=== PATIENT | male | born 1940 | race Caucasian/White ===

== ENCOUNTER → 2018-04-30 09:22 | Outpatient (CLI) | payer MEDICARE, BC, SELFPAY ==
[2018-04-30 10:04] LABS: Alanine Aminotransferase 34 IU/L (21-72); Albumin 4.2 g/dL (3.5-5.0); Albumin Globulin Ratio 1.4 (1.0-2.8); Alkaline Phosphatase 69 U/L (38-126); Aspartate Aminotransferase 32 IU/L (17-59); BUN Creatinine Ratio 23.8 (6-22); Bilirubin Total 0.7 mg/dL (0.2-1.3); Blood Urea Nitrogen 19 mg/dL (9-20); Carbon Dioxide 31 mmol/L (22-32); Chloride 103 mmol/L (98-107); Cholesterol 127 mg/dL (140-199); Estimated Glomerular Filt Rate > 60.0 mL/min (>60); Globulin 2.9 g/dL (1.7-4.1); Glucose 100 mg/dL (80-110); HDL Cholesterol 39 mg/dL (40-60); HEMOLYSIS < 15 (0-50); LDL Cholesterol Calculated 71 mg/dL (<100); Potassium 4.2 mmol/L (3.4-5.1); Sodium 141 mmol/L (137-145); Total Protein 7.1 g/dL (6.3-8.2); Triglycerides 87 mg/dL (35-150)
[2018-04-30 10:55] LABS: Thyroid Stimulating Hormone 2.72 uIU/mL (0.47-4.68)
== END ==
PROVIDERS: Family Provider Family Medicine; PCP Family Medicine; Visit Provider Family Medicine
DX: E78.5 Hyperlipidemia, unspecified (principal); N40.0 Benign prostatic hyperplasia without lower urinary tract symptoms; Z51.81 Encounter for therapeutic drug level monitoring
CPT/HCPCS: 36415; 80053; 80061; 84153; 84443

== ENCOUNTER → 2018-09-17 14:47 | Outpatient (CLI) | payer MEDICARE, BC, SELFPAY ==
[2018-09-17 15:03] LABS: Bacteria Urine None Seen
[2018-09-17 15:28] LABS: Appearance Urine UA CLEAR; Bilirubin Urine UA NEGATIVE (NEGATIVE); Color Urine UA YELLOW; Glucose Urine UA NEGATIVE (Normal); Ketones Urine UA NEGATIVE (NEGATIVE); Leukocyte Esterase Urine UA NEGATIVE (NEGATIVE); Nitrite Urine UA NEGATIVE (Negative); Occult Blood Urine UA 3+ (Negative); Protein Urine UA NEGATIVE (Negative); Specific Gravity Urine UA 1.015 (1.000-1.035); Urobilinogen Urine UA 0.2 E.U./dL (0.2); pH Urine UA 7.5 (4.5-8.0)
[2018-09-17 15:39] LABS: Amorphous Sediment Urine 1+; Culture Indicated Urine Cult Not Indicated; RBC Urine 10-30/HPF (0-5/HPF); Squamous Epithelial Cell Urine 0-1 /HPF; WBC Urine 1-5/HPF (0-5/HPF)
== END ==
PROVIDERS: Family Provider Family Medicine; PCP Family Medicine; Visit Provider Specialist
DX: N39.0 Urinary tract infection, site not specified (principal)
CPT/HCPCS: 81001

== ENCOUNTER → 2018-09-23 09:44 | Outpatient (CLI) | payer MEDICARE, BC, SELFPAY ==
--- NOTE | 2018-09-23 | DI.RAD.S_ITS ---
PROCEDURE: XR KUB INDICATIONS: CALCULUS OF KIDNEY TECHNIQUE: One view of the abdomen acquired. COMPARISON: [facility], , KUB XRAY (1 VIEW ABDOMEN), 08/07/2017, 13:52. FINDINGS: Surgical changes and devices: Median sternotomy wires are seen. Surgical clips are noted in left upper quadrant abdomen. A vascular stent is noted in right lower quadrant abdomen unchanged from prior study. Bowel: Bowel gas pattern is normal. Fecal stasis throughout the colon is seen. Soft tissues: No suspicious abdominal calcifications. Visualized solid organ contours appear normal in size. Bones: No suspicious bony lesions. IMPRESSION: No gross renal calcification or pelvic calcifications seen. Constipation. Dictated by: Beny Skaggs M.D. on 09/23/2018 at 11:40 Approved by: Beny Skaggs M.D. on 09/23/2018 at 11:41
[2018-09-23 09:59] LABS: Bacteria Urine None Seen; RBC Urine None Seen (0-5/HPF); WBC Urine None Seen (0-5/HPF)
[2018-09-23 10:12] LABS: Hematocrit 47.8 % (41-53); Hemoglobin 15.9 g/dL (13.5-17.5); Mean Corpuscular HGB Conc 33.3 % (30-36); Mean Corpuscular Hemoglobin 31.1 PG (26-34); Mean Corpuscular Volume 93.2 fL (80-100); Platelet Count 149 X10^3/uL (150-400); Red Blood Cell Count 5.12 X10^6/uL (4.5-5.9); Red Cell Distribution Width 13.5 % (11.6-14.8)
[2018-09-23 10:55] LABS: Appearance Urine UA CLEAR; Bilirubin Urine UA NEGATIVE (NEGATIVE); Color Urine UA YELLOW; Glucose Urine UA NEGATIVE (Normal); Ketones Urine UA NEGATIVE (NEGATIVE); Leukocyte Esterase Urine UA NEGATIVE (NEGATIVE); Nitrite Urine UA NEGATIVE (Negative); Occult Blood Urine UA NEGATIVE (Negative); Protein Urine UA NEGATIVE (Negative); Specific Gravity Urine UA <=1.005 (1.000-1.035); Urobilinogen Urine UA 0.2 E.U./dL (0.2)
[2018-09-23 11:05] LABS: Culture Indicated Urine Cult Not Indicated; Urine Comments Microscopic Normal
[2018-09-23 11:46] LABS: Alanine Aminotransferase 36 IU/L (21-72); Albumin 4.4 g/dL (3.5-5.0); Albumin Globulin Ratio 1.5 (1.0-2.8); Alkaline Phosphatase 74 U/L (38-126); Aspartate Aminotransferase 33 IU/L (17-59); Bilirubin Total 0.6 mg/dL (0.2-1.3); Blood Urea Nitrogen 18 mg/dL (9-20); Carbon Dioxide 30 mmol/L (22-32); Chloride 103 mmol/L (98-107); Cholesterol 137 mg/dL (140-199); Estimated Glomerular Filt Rate > 60.0 mL/min (>60); Glucose 95 mg/dL (80-110); HDL Cholesterol 44 mg/dL (40-60); HEMOLYSIS < 15 (0-50); LDL Cholesterol Calculated 73 mg/dL (<100); Potassium 4.2 mmol/L (3.4-5.1); Sodium 144 mmol/L (137-145); Total Protein 7.4 g/dL (6.3-8.2); Triglycerides 100 mg/dL (35-150)
== END ==
PROVIDERS: Family Provider Family Medicine; PCP Family Medicine; Visit Provider Specialist
DX: N20.0 Calculus of kidney (principal); R10.9 Unspecified abdominal pain; R31.9 Hematuria, unspecified; N39.0 Urinary tract infection, site not specified; E78.00 Pure hypercholesterolemia, unspecified; E78.5 Hyperlipidemia, unspecified; N40.0 Benign prostatic hyperplasia without lower urinary tract symptoms; Z12.5 Encounter for screening for malignant neoplasm of prostate; Z51.81 Encounter for therapeutic drug level monitoring
CPT/HCPCS: 36415; 74018; 80053; 80061; 81001; 84153; 84443; 85027

== ENCOUNTER → 2018-10-31 10:13 | Outpatient (CLI) | payer MEDICARE, BC, SELFPAY ==
--- NOTE | 2018-10-31 | DI.US.S_ITS ---
PROCEDURE: US CAROTID DOPPLER BI INDICATIONS: PAD TECHNIQUE: Color and pulse Doppler interrogation was performed of both carotid systems, with image documentation and velocity measurements. COMPARISON: None. FINDINGS: Stenosis calculations are based on SRU (Society of Radiologists in Ultrasound) criteria. Right side: Brachial blood pressure: 115/64 mm Hg. Common carotid artery peak systolic velocity: 103 cm/sec. Internal carotid artery peak systolic velocity: 79 cm/sec. Internal carotid artery end diastolic velocity: 26 cm/sec. External carotid artery peak systolic velocity: 143 cm/sec. ICA/CCA peak systolic ratio: 0.8. Garcia scale imaging description: Mild soft and calcific plaque Percent internal carotid artery stenosis: Less than 50% stenosis, no exchange clerk time.. Vertebral artery: Flow direction is antegrade. Left side: Brachial blood pressure: 111/65 mm Hg. Common carotid artery peak systolic velocity: 105 cm/sec. Internal carotid artery peak systolic velocity: 106 cm/sec. Internal carotid artery end diastolic velocity: 28 cm/sec. External carotid artery peak systolic velocity: 96 cm/sec. ICA/CCA peak systolic ratio: 1.0. Garcia scale imaging description: Mild calcific and soft plaque Percent internal carotid artery stenosis: Less than 50% stenosis. Vertebral artery: Flow direction is antegrade. IMPRESSION: Less than 50% stenosis at the proximal internal carotid arteries bilaterally. Vertebral arterial flow is antegrade in direction. No appreciable exchange clerk time. Dictated by: Nicholas Plummer M.D. on 10/31/2018 at 12:02 Approved by: Nicholas Plummer M.D. on 10/31/2018 at 12:04
--- NOTE | 2018-10-31 | DI.US.S_ITS ---
PROCEDURE: US RETROPERITONEAL COMP INDICATIONS: PAD TECHNIQUE: Real-time scanning was performed of the retroperitoneal organs, with image documentation. COMPARISON: [facility], , ABD AORTA ANEURYSM SCREENING, 07/11/2016, 10:31. [facility], US ARTERIAL DUPLEX LE BI, 10/31/2018, 10:58. FINDINGS: Aorta: Proximal aorta measures 1.9 cm, mid aorta 1.8 cm, and 2.4 cm distally. Iliac arteries: Proximal common iliac arteries are normal in caliber at 2.5 cm or less. Limited Doppler assessment demonstrates increased flow within the right common iliac artery with peak systolic velocity of 359 cm/s. Mild increase in flow within the left common iliac artery with peak systolic velocity of 202 cm/s. Miscellaneous: No free abdominal fluid. IMPRESSION: No abdominal aortic or proximal common iliac artery aneurysm. 50-99% stenosis of the right common iliac artery and less than 50% stenosis involving the left common iliac artery. Dictated by: Jarrod CHAPIN Interpreted: Orion Green MD on 11/01/2018 at 13:17 Approved by: Orion Green M.D. on 11/01/2018 at 17:15
--- NOTE | 2018-10-31 | DI.US.S_ITS ---
PROCEDURE: US ARTERIAL DUPLEX LE BI INDICATIONS: PAD TECHNIQUE: Color and pulse Doppler interrogation was performed of both lower extremity arterial systems, with image documentation. COMPARISON: None. FINDINGS: Right lower extremity: Common femoral artery: 79 cm/sec, with triphasic flow. Deep femoral artery: 93 cm/sec, with biphasic flow. Proximal superficial femoral artery: 62 cm/sec, with triphasic flow. Mid superficial femoral artery: 95 cm/sec, with biphasic flow. Distal superficial femoral artery: 67 cm/sec, with biphasic flow. Popliteal artery: 35 cm/sec, with biphasic flow. Posterior tibial artery: 94 cm/sec, with biphasic flow. Anterior tibial artery/dorsalis pedis: 70 cm/sec, with biphasic flow. Garcia-scale imaging description: Scattered minimal soft plaque Left lower extremity: Common femoral artery: 116 cm/sec, with biphasic flow. Deep femoral artery: 44 cm/sec, with biphasic flow. Proximal superficial femoral artery: 64 cm/sec, with biphasic flow. Mid superficial femoral artery: 104 cm/sec, with triphasic flow. Distal superficial femoral artery: 68 cm/sec, with biphasic flow. Popliteal artery: 51 cm/sec, with triphasic flow. Posterior tibial artery: 62 cm/sec, with biphasic flow. Anterior tibial artery/dorsalis pedis: 28 cm/sec, with a biphasic flow. Garcia-scale imaging description: A small degree of soft plaque is present. IMPRESSION: No significant stenosis found over the lower extremity arterial vasculature. Mild scattered soft plaque, no area of arterial stenosis. No suspicion for iliac artery stent stenosis. Dictated by: Nicholas Plummer M.D. on 10/31/2018 at 16:26 Approved by: Nicholas Plummer M.D. on 10/31/2018 at 16:29
== END ==
PROVIDERS: PCP Family Medicine; Visit Provider Internal Medicine Cardiovascular Disease
DX: I70.203 Unspecified atherosclerosis of native arteries of extremities, bilateral legs (principal); I65.23 Occlusion and stenosis of bilateral carotid arteries
CPT/HCPCS: 76770; 93880; 93925; 93976

== ENCOUNTER → 2019-01-16 14:27 | Outpatient (CLI) | payer MEDICARE, BC, SELFPAY ==
--- NOTE | 2019-01-16 14:29 | DI.RAD.S_ITS ---
PROCEDURE: XR CERVICAL SPINE 2V OR 3V INDICATIONS: neck pain, back pain TECHNIQUE: 3 view(s) of the cervical spine were acquired. COMPARISON: None. FINDINGS: Bones: No fractures or dislocations to the T1 level. Degenerative disc disease throughout cervical spine is seen. The lateral masses of C1 appear intact on the odontoid view. No suspicious bony lesions. Soft tissues: No prevertebral soft tissue swelling. IMPRESSION: Degenerative disc disease throughout cervical spine. No acute compression fracture or traumatic spondylolisthesis. Dictated by: Beny Skaggs M.D. on 01/16/2019 at 15:22 Approved by: Beny Skaggs M.D. on 01/16/2019 at 15:22
--- NOTE | 2019-01-16 14:29 | DI.RAD.S_ITS ---
PROCEDURE: XR THORACIC SPINE 3V INDICATIONS: neck pain, back pain TECHNIQUE: 3 views of the thoracic spine were acquired. COMPARISON: [facility], , T AND L SPINE 2 TO 3 VIEWS, 05/01/2016, 13:50. FINDINGS: Bones: Moderate kyphosis is seen centered at T11-12 level. Chronic appearing mild anterior wedge compression deformity at T12 and L1 levels are noted without to 15% loss of anterior vertebral body height. This is not significantly changed from previous study in 2016. Age indeterminate and anterior wedge compression deformity at T5 and T6 levels also seen with 15-20% loss of T6 vertebral body height anteriorly. Degenerative endplate changes throughout thoracic spine is seen. No suspicious bony lesions. 12 pairs of ribs are noted, and appear intact where visualized. Soft tissues: No paravertebral stripe thickening. IMPRESSION: 1. Age indeterminate anterior wedge compression deformity at T5 and T6 levels as above. Chronic appearing anterior wedge compression deformity at T12 and L1 levels. 2. Degenerative disc disease throughout thoracic and lumbar spine. No spondylolisthesis. Dictated by: Beny Skaggs M.D. on 01/16/2019 at 15:19 Approved by: Beny Skaggs M.D. on 01/16/2019 at 15:21
== END ==
PROVIDERS: PCP Family Medicine; Visit Provider Family Medicine
DX: M54.2 Cervicalgia (principal); M54.9 Dorsalgia, unspecified; M51.34 Other intervertebral disc degeneration, thoracic region; M51.36 Other intervertebral disc degeneration, lumbar region
CPT/HCPCS: 72040; 72072

== ENCOUNTER → 2019-01-20 15:21 | Outpatient (CLI) | payer MEDICARE, BC, SELFPAY ==
[2019-01-20 17:33] LABS: Alanine Aminotransferase 37 IU/L (21-72); Albumin 4.3 g/dL (3.5-5.0); Albumin Globulin Ratio 1.6 (1.0-2.8); Alkaline Phosphatase 79 U/L (38-126); Aspartate Aminotransferase 30 IU/L (17-59); BUN Creatinine Ratio 23.3 (6-22); Bilirubin Total 0.3 mg/dL (0.2-1.3); Blood Urea Nitrogen 21 mg/dL (9-20); Calcium 9.4 mg/dL (8.4-10.2); Carbon Dioxide 31 mmol/L (22-32); Chloride 101 mmol/L (98-107); Estimated Glomerular Filt Rate > 60.0 mL/min (>60); Globulin 2.7 g/dL (1.7-4.1); Glucose 68 mg/dL (80-110); HEMOLYSIS < 15 (0-50); Potassium 5.1 mmol/L (3.4-5.1); Sodium 140 mmol/L (137-145)
== END ==
PROVIDERS: PCP Family Medicine; Visit Provider Family Medicine
DX: R79.89 Other specified abnormal findings of blood chemistry (principal); E78.5 Hyperlipidemia, unspecified; Z51.81 Encounter for therapeutic drug level monitoring
CPT/HCPCS: 36415; 80053; 84403

== ENCOUNTER 2019-04-01 12:00 | Outpatient (RCR) | payer MEDICARE, BC, SELFPAY ==
--- NOTE | 2019-03-05 14:58 | PT.OIE ---
Current Diagnoses Cervicalgia (03/04/19) Dorsalgia, unspecified (03/04/19) Past Medical History (Last Reviewed 04/29/18 @ 11:57 by Estefania Fox DO) BPH (benign prostatic hyperplasia) (Chronic Unknown) Erectile dysfunction (Chronic Unknown) Factor V Leiden mutation (Chronic Unknown) GERD (gastroesophageal reflux disease) (Chronic Unknown) Hyperlipemia (Chronic Unknown) Hypogonadism (Chronic Unknown) Osteoporosis (Chronic Unknown) Coronary artery disease (Resolved Unknown) Skin cancer (Resolved Unknown) Past Surgical History (Last Reviewed 04/29/18 @ 11:57 by Estefania Fox DO) History of kidney stones (Resolved 1974) Hx of coronary artery bypass graft (Resolved Unknown) Hx of transurethral resection of prostate (Resolved ~1966) Provider Visit Care Team Role Provider Type Estefania Fox DO Attending Provider Physician Primary Care Provider Specialty: Family Practice Address: [address] [place] [address], [facility] Email: [email or web address] Physical Therapy Initial Evaluation PT-OP-A Visit Information Start: 03/04/19 10:26 Freq: Status: Active Protocol: Document 03/04/19 10:27 [facility] (Rec: 03/04/19 10:45 [facility] [id number]) Out-Patient Physical Therapy Visit Information Visit Information Visit Type Initial Evaluation Visit Start Time 10:30 Visit Stop Time 11:15 Total Visit Minutes 45 Visit Number 1 Evaluation Information Evaluation Date 03/04/19 PT-OP-B Current Condition Start: 03/04/19 10:26 Freq: Status: Active Protocol: Document 03/04/19 10:27 [facility] (Rec: 03/04/19 10:45 [facility] [id number]) Current Condition History of Current Condition History of Current Condition Pr referred from his physician as Thoracic spine xray shows a wedge compression fracture at T5-6 and T 12-L1 Hx of osteoporosis, 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 He took fosamax for years but is irene it now, DDD of the cervical spine. He reports he has lost 3 inches on his height over the years. Neck symptoms began in October. He has been dealing with tingling into his feet since 2011. Symptoms are worse when he goes to bed Chief complaint is when he is turinging his head to the right to back out a car Treatment Goals Patient/Caregiver Goals William would like guidance on exercises to help improve cervical rotation to the right especially with driving as well as find the root cause of what is causing his foot parathesias Current Functional Impairments (Reported) Functional Limitations- ADL's limitations with cervical spine ROM including looking over his shoulder with driving PT-OP-F Manual Assessment Start: 03/04/19 10:26 Freq: Status: Active Protocol: Document 03/04/19 10:27 [facility] (Rec: 03/05/19 14:58 [facility] [id number]) Manual Assessments Soft Tissue Assessment Soft Tissue Mobility Assessment tightness of the pectoralis musculature right greater than left, R>Left upper trapezius muscle tightness, tightness in the suboccipital musculature B Joint Mobility Assessment Joint Mobility Assessment T spine thoracic kyphosis with wedge compression fractures at T5-6 and T12-L1 no pain going into thoracic extension PA mobs T1-4 help to decrease pain with cervical rotation right PT-OP-J Posture/Palpation/Skin Start: 03/04/19 10:26 Freq: Status: Active Protocol: Document 03/04/19 10:27 [facility] (Rec: 03/05/19 14:58 [facility] [id number]) Posture Evaluation Position Standing Head/C-Spine Posture Excess Extension Shoulder Posture (R) Elevated Scapula Posture (L) Protracted (R) Protracted Comments Posture Comments William stands with a large thoracic kyphosis most likely due to his wedge compression fractures and osteoporosis, he is able to straighten up though and squeeze the shoulder blades back, he denies pain with thoracic extension and reports it feels good to do, His neck is in a forward position with increased cervical extension PT-OP-K Range of Motion Start: 03/04/19 10:26 Freq: Status: Active Protocol: Document 03/04/19 10:27 [facility] (Rec: 03/05/19 14:58 [facility] [id number]) Cervical Spine Range of Motion Cervical Spine Active Testing Position Sitting Flexion 50 Extension 15 Rotation Left 70 Rotation Right 50 Lateral Flexion Left 20 Lateral Flexion Right 20 ROM Limitations Soft Tissue Tightness Pain Comments pain with rotation to the right and cervical extension Shoulder Goniometric Range of Motion Shoulder Measured in Degrees Right Flexion 155 Left Flexion 155 Shoulder ROM Limitations Comments thoracic kyphosis limites full shoulder flexion PT-OP-M Strength Start: 03/04/19 10:26 Freq: Status: Active Protocol: Document 03/04/19 10:27 [facility] (Rec: 03/05/19 14:58 [facility] [id number]) Scapula Strength Scapula Manual Muscle Testing Left Comments scapula upward rotation 4/5 Right Comments scapula upward rotation 4/5 PT-OP-Q Treatments Start: 03/04/19 10:26 Freq: Status: Active Protocol: Document 03/04/19 10:27 [facility] (Rec: 03/05/19 14:58 [facility] [email or web address]) Therapeutic Exercises Supine Exercises 1 Supine Exercise Name 1/2 foam roll stretch both vertical and horizontal Reps/Minutes with active shoulder abduction and opp arm lifts over head Comments to stretch out the anterior chest and mobilize the T spine , good tolerance Prone Exercises 1 Prone Exercise Name prone thoracic extension with chin tuck Reps/Minutes x 10 reps Comments towel under forehead, verbal cues to avoid cervical extension Sitting Exercises 1 Sitting Exercise Name seated cervcial sidebending stretch Reps/Minutes 2 reps x 30 seconds PT-OP-T Assessment and Plan Start: 03/04/19 10:26 Freq: Status: Active Protocol: Document 03/04/19 10:27 [facility] (Rec: 03/05/19 14:58 [facility] [id number]) Physical Therapy Assessment Rehab Potential Rehabilitation Potential Excellent Evaluation Complexity Number of Personal Factors/Comorbidities 0 Number of Body Systems Impaired 1-2 Clinical Presentation at Evaluation Stable Impairments Impairments Activity Tolerance Pain Posture ROM Soft Tissue Mobility Strength Goals Four Impairment tight suboccipital musculature ,increased upper cervical extension Short Term Goal (STG) William is educated on body mechanics for his computer 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 to decrease upper cervical extension and decrease pain STG Duration 4 weeks Three Impairment Tightness of the anterior chest musculature, anteriorly rotated shoulders [facility] Goal (LTG) Improve flexibility of the anterior chest to improve posture and decrease pain Two Impairment Thoracic kyphosis, hx of compression fx and decreased thoracic extension [facility] Goal (LTG) William is instructed in a home exercise program for improving thoracic extension and posture to decrease pressure on the t-spine vertebrae and to improve cervical spine positioning LTG Duration 6-8 weeks One Impairment Decreased cervcial rotation to the right, pain turning right when driving Short Term Goal (STG) Improve pain free cervical rotation to the right to enable William to turn and look behind him while driving STG Duration 5 weeks Assessment Summary Assessment William presents to physical therapy today with primary cervical spine pain on the right side rated 8-9/10 with right rotation and especially with driving and turning to look to the right. He is also c/o neuropathy type symptoms in his feet that he is seeking guidance as to where this is stemming from. He has a history of thoracic wedge compression fractures at T5-6 and T12-L1 and osteoporosis. He notes he had rheumatic fever at 3 years old and spent a year on bed rest and he feels his weakness in his spine may be from that time period. He works out on a regular basis including walking 2.5 miles per day and weightlifting at his home gym. Examination today reveals forward shoulder and thoracic kyphosis posture with tightness of the pectoralis bilaterally. William is able to extend his spine without pain. He is tight in his suboccitals bilaterally and spends time on his computer with his bifocals on daily. When reviewing posture for computer work he is in a exxagerated upper cervical extension position. He tends to stand with chin forward and neck extended. Treatment today focused on posture and thoracic extension. With his weight lifting at home he is focusing on exercises to strengthen the anterior chest like pull ups and press. I had him begin some thoracic extension today as well as stretching exercises for the anterior chest laying over a 1/2 foam roll. He tolerated this well. He is a good candidate for PT Physical Therapy Plan Frequency and Duration Frequency of Treatment 2x/Week Duration of Treatment 8 weeks Plan of Care Start Date 03/04/19 Plan of Care End Date 05/06/19 Therapeutic Interventions Therapeutic Interventions Home Exercise Program Joint Mobilizations Manual Therapy Neuromuscular Re-education Patient/Caregiver Education Self-Care/Home Management Soft Tissue Mobilization Therapeutic Exercises Next Visit Focus/Plan Next Note Type Treatment Note Next Visit Plan work on suboccipital release and upper thoracic mobs into extension, progress posture exercises for thoracic extension and anterior chest opening, work on improved cervical rotation to the right
--- NOTE | 2019-03-05 15:02 | PT.OPPOC ---
Current Diagnoses Cervicalgia (03/04/19) Pain in thoracic spine (03/04/19) Dorsalgia, unspecified (03/04/19) Provider Visit Care Team Role Provider Type Estefania Fox DO Attending Provider Physician Primary Care Provider Specialty: Family Practice Address: [address] [place] [address], [id number] Email: [email or web address] Plan Of Care PT-OP-T Assessment and Plan Start: 03/04/19 10:26 Freq: Status: Active Protocol: Document 03/04/19 10:27 [facility] (Rec: 03/05/19 14:58 [facility] [id number]) Physical Therapy Assessment Rehab Potential Rehabilitation Potential Excellent Evaluation Complexity Number of Personal Factors/Comorbidities 0 Number of Body Systems Impaired 1-2 Clinical Presentation at Evaluation Stable Impairments Impairments Activity Tolerance Pain Posture ROM Soft Tissue Mobility Strength Goals Four Impairment tight suboccipital musculature ,increased upper cervical extension Short Term Goal (STG) William is educated on 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 mechanics 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 computer 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 to decrease upper cervical extension and decrease pain STG Duration 4 weeks Three Impairment Tightness of the anterior chest musculature, anteriorly rotated shoulders Longterm Goal (LTG) Improve flexibility of the anterior chest to improve posture and decrease pain Two Impairment Thoracic kyphosis, hx of compression fx and decreased thoracic extension 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 (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) William is instructed in a home exercise program for improving thoracic extension and posture to decrease pressure on the t-spine vertebrae and to improve cervical spine positioning LTG Duration 6-8 weeks One Impairment Decreased cervical rotation to the right, pain turning right when driving Short Term Goal (STG) Improve pain free cervical rotation to the right to enable William to turn and look behind him while driving STG Duration 5 weeks Assessment Summary Assessment William presents to physical therapy today with primary cervical spine pain on the right side rated 8-9/10 with right rotation and especially with driving and turning to look to the right. He is also c/o neuropathy type symptoms in his feet that he is seeking guidance as to where this is stemming from. He has a history of thoracic wedge compression fractures at T5-6 and T12-L1 and osteoporosis. He notes he had rheumatic fever at 3 years old and spent a year on bed rest and he feels his weakness in his spine may be from that time period. He works out on a regular basis including walking 2.5 miles per day and weightlifting at his home gym. Examination today reveals forward shoulder and thoracic kyphosis posture with tightness of the pectoralis bilaterally. William is able to extend his spine without pain. He is tight in his suboccitals bilaterally and spends time on his computer with his bifocals on daily. When reviewing posture for computer work he is in a exaggerated upper cervical extension position. He tends to stand with chin forward and neck extended. Treatment today focused on posture and thoracic extension. With his weight lifting at home he is focusing on exercises to strengthen the anterior chest like pull ups and press. I had him begin some thoracic extension today as well as stretching exercises for the anterior chest laying over a 1/2 foam roll. He tolerated this well. He is a good candidate for PT Physical Therapy Plan Frequency and Duration Frequency of Treatment 2x/Week Duration of Treatment 8 weeks Plan of Care Start Date 03/04/19 Plan of Care End Date 05/06/19 Therapeutic Interventions Therapeutic Interventions Home Exercise Program Joint Mobilizations Manual Therapy Neuromuscular Re-education Patient/Caregiver Education Self-Care/Home Management Soft Tissue Mobilization Therapeutic Exercises Next Visit Focus/Plan Next Note Type Treatment Note Next Visit Plan work on suboccipital release and upper thoracic mobs into extension, progress posture exercises for thoracic extension and anterior chest opening, work on improved cervical rotation to the right Plan of Care Dates Plan of Care Start Date 03/04/19 Plan of Care End Date 05/06/19 Please Sign and Return: I have reviewed this Plan of Care and certify that the skilled therapy services above are required to meet the patient?s needs. Physician Signature Date Printed Name and Credentials Clinical Instructor Signature Printed Name and Credentials
--- NOTE | 2019-03-11 17:08 | PT.OTN ---
Current Diagnoses Cervicalgia (03/11/19) Pain in thoracic spine (03/11/19) Dorsalgia, unspecified (03/11/19) Physical Therapy Treatment Note PT-OP-A Visit Information Start: 03/04/19 10:26 Freq: Status: Active Protocol: Document 03/11/19 09:52 LRN (Rec: 03/11/19 10:34 LRN [id number]) Out-Patient Physical Therapy Visit Information Visit Information Visit Type Treatment Note Visit Start Time 09:52 Visit Stop Time 10:34 Total Visit Minutes 42 Visit Number 2 Evaluation Information Evaluation Date 03/04/19 Precautions Precautions 03/06/19 Surgery: R iliac artery stent debridement. Wedge compression fxs T5-6, possibly T12-L1 Osteoporosis PT-OP-B Current Condition Start: 03/04/19 10:26 Freq: Status: Active Protocol: Document 03/04/19 10:27 AMH (Rec: 03/04/19 10:45 AMH [id number]) Current Condition History of Current Condition Onset Date October 2018 Current Complaints right sided neck pain, pain in thoracic spine History of Current Condition Pr referred from his physician as Thoracic spine xray shows a wedge compression fracture at T5-6 and T 12-L1 Hx of osteoporosis, 1996 had a fracture of T7 vertebrate. He took fosamax for years but is off it now, DDD of the cervical spine. He reports he has lost 3 inches on his height over the years. Neck symptoms began in October. He has been dealing with tingling into his feet since 2011. Symptoms are worse when he goes to bed Chief complaint is when he is turinging his head to the right to back out a car. Past medical history includes rheumatic fever at age 3 and pt was on bed rest for a year, osteoporosis, heart disease Prior Treatments and Tests XRAY reveals compression fx at T5-6 and T12-L1 Treatment Goals Patient/Caregiver Goals William would like guidance on exercises to help improve cervical rotation to the right especially with driving as well as find the root cause of what is causing his foot parathesias Current Functional Impairments (Reported) Functional Limitations- ADL's limitations with cervical spine ROM including looking over his shoulder with driving PT-OP-F Manual Assessment Start: 03/04/19 10:26 Freq: Status: Active Protocol: Document 03/04/19 10:27 AMH (Rec: 03/05/19 14:58 AMH [email or web address]) Manual Assessments Soft Tissue Assessment Soft Tissue Mobility Assessment tightness of the pectoralis musculature right greater than left, R>Left upper trapezius muscle tightness, tightness in the suboccipital musculature B Joint Mobility Assessment Joint Mobility Assessment T spine thoracic kyphosis with wedge compression fractures at T5-6 and T12-L1 no pain going into thoracic extension PA mobs T1-4 help to decrease pain with cervical rotation right PT-OP-J Posture/Palpation/Skin Start: 03/04/19 10:26 Freq: Status: Active Protocol: Document 03/04/19 10:27 AMH (Rec: 03/05/19 14:58 [facility] [email or web address]) Posture Evaluation Position Standing Head/C-Spine Posture Excess Extension Shoulder Posture (R) Elevated Scapula Posture (L) Protracted (R) Protracted Comments Posture Comments William stands with a large thoracic kyphosis most likely due to his wedge compression fractures and osteoporosis, he is able to straighten up though and squeeze the shoulder blades back, he denies pain with thoracic extension and reports it feels good to do, His neck is in a forward position with increased cervical extension PT-OP-K Range of Motion Start: 03/04/19 10:26 Freq: Status: Active Protocol: Document 03/04/19 10:27 AMH (Rec: 03/05/19 14:58 [facility] [email or web address]) Cervical Spine Range of Motion Cervical Spine Active Testing Position Sitting Flexion 50 Extension 15 Rotation Left 70 Rotation Right 50 Lateral Flexion Left 20 Lateral Flexion Right 20 ROM Limitations Soft Tissue Tightness Pain Comments pain with rotation to the right and cervical extension Shoulder Goniometric Range of Motion Shoulder Measured in Degrees Right Flexion 155 Left Flexion 155 Shoulder ROM Limitations Comments thoracic kyphosis limites full shoulder flexion PT-OP-M Strength Start: 03/04/19 10:26 Freq: Status: Active Protocol: Document 03/04/19 10:27 AMH (Rec: 03/05/19 14:58 [facility] [email or web address]) Scapula Strength Scapula Manual Muscle Testing Left Comments scapula upward rotation 4/5 Right Comments scapula upward rotation 4/5 PT-OP-Q Treatments Start: 03/04/19 10:26 Freq: Status: Active Protocol: Document 03/11/19 09:52 LRN (Rec: 03/11/19 10:34 LRN [id number]) Therapeutic Exercises Supine Exercises Arm press into plinth Supine Exercise Name Arm presses into plinth Side bilateral Resistance Isometric Reps/Minutes 4' Deep C Neck Flexors Supine Exercise Name Deep C. Neck Flexor Contraction Reps/Minutes Hold 5 sec's Comments 1 Pillow, push into finger @ top of head cuing. Extra time needed to train C Rotation Supine Exercise Name Gentle Passive & Active Side bilateral Reps/Minutes 10x, holding 5 secs C.SB Supine Exercise Name Gentle Passive Side bilateral Manual Therapy Treatment Soft Tissue Mobilization UT Body Location UT's Mobilization Type Myofascial Release Trigger Point Release Body Position Supine Self-Care/Home Management Treatment Education Patient Education Posture Other Education Extra time taken to educate pt on precautions of exercise and healing rates, in relation to the stint placed in the anterior artery of the hip. Activities Self-Care/Home Management Activities Postural training with I/S for pt to monitor and self correct posture. Pt needed v. cuing 2x as education finished and pt leaving treatment room . PT-OP-T Assessment and Plan Start: 03/04/19 10:26 Freq: Status: Active Protocol: Document 03/11/19 09:52 LRN (Rec: 03/11/19 16:31 LRN [id number]) Physical Therapy Assessment Assessment Summary Assessment Pt limited with R cervical rotation probably due to poor posture and notable forward head. He doesn't appear to have tenderness in the suboccipital region; therefore held manual release treatment . Thoracic pain from recent fractures. Extended time taken to teach the pt to perform a deep cervical neck flexor isometric ex. Physical Therapy Plan Frequency and Duration Frequency of Treatment 2x/Week Duration of Treatment 8 weeks Plan of Care Start Date 03/04/19 Plan of Care End Date 05/06/19 Next Visit Focus/Plan Next Note Type Treatment Note Next Visit Plan work on gentle self upper thoracic mobs into extension, progress posture exercises for thoracic extension and anterior chest opening, work on improved cervical rotation to the right. Caution: Osteoporosis with fx's and recent stents placed in anterior R hip
--- NOTE | 2019-04-01 15:52 | PT.OTN ---
Current Diagnoses Cervicalgia (04/01/19) Pain in thoracic spine (04/01/19) Dorsalgia, unspecified (04/01/19) Physical Therapy Treatment Note PT-OP-A Visit Information Start: 03/04/19 10:26 Freq: Status: Active Protocol: Document 04/01/19 12:00 GGD (Rec: 04/01/19 15:50 [facility]GD [email or web address]) Out-Patient Physical Therapy Visit Information Visit Information Visit Type Discharge Summary Visit Start Time 12:00 Visit Stop Time 12:20 Total Visit Minutes 20 Visit Number 3 Number of [employer] Visits 1 PT-OP-B Current Condition Start: 03/04/19 10:26 Freq: Status: Active Protocol: Document 03/04/19 10:27 AMH (Rec: 03/04/19 10:45 AMH [id number]) Current Condition History of Current Condition Onset Date October 2018 Current Complaints right sided neck pain, pain in thoracic spine History of Current Condition Pr referred from his physician as Thoracic spine xray shows a wedge compression fracture at T5-6 and T 12-L1 Hx of osteoporosis, 1996 had a fracture of T7 vertebrate. He took fosamax for years but is off it now, DDD of the cervical spine. He reports he has lost 3 inches on his height over the years. Neck symptoms began in October. He has been dealing with tingling into his feet since 2011. Symptoms are worse when he goes to bed Chief complaint is when he is turinging his head to the right to back out a car. Past medical history includes rheumatic fever at age 3 and pt was on bed rest for a year, osteoporosis, heart disease Prior Treatments and Tests XRAY reveals compression fx at T5-6 and T12-L1 Treatment Goals Patient/Caregiver Goals William would like guidance on exercises to help improve cervical rotation to the right especially with driving as well as find the root cause of what is causing his foot parathesias Current Functional Impairments (Reported) Functional Limitations- ADL's limitations with cervical spine ROM including looking over his shoulder with driving PT-OP-C Subjective Start: 03/04/19 10:26 Freq: Status: Active Protocol: Document 04/01/19 12:00 GGD (Rec: 04/01/19 15:50 GGD [email or web address]) OP-PT Subjective Patient Comments Patient Comments Pt states he is doing better and not sure if he needs to continue therapy. PT-OP-F Manual Assessment Start: 03/04/19 10:26 Freq: Status: Active Protocol: Document 03/04/19 10:27 AMH (Rec: 03/05/19 14:58 AMH [email or web address]) Manual Assessments Soft Tissue Assessment Soft Tissue Mobility Assessment tightness of the pectoralis musculature right greater than left, R>Left upper trapezius muscle tightness, tightness in the suboccipital musculature B Joint Mobility Assessment Joint Mobility Assessment T spine thoracic kyphosis with wedge compression fractures at T5-6 and T12-L1 no pain going into thoracic extension PA mobs T1-4 help to decrease pain with cervical rotation right PT-OP-J Posture/Palpation/Skin Start: 03/04/19 10:26 Freq: Status: Active Protocol: Document 03/04/19 10:27 AMH (Rec: 03/05/19 14:58 AMH [email or web address]) Posture Evaluation Position Standing Head/C-Spine Posture Excess Extension Shoulder Posture (R) Elevated Scapula Posture (L) Protracted (R) Protracted Comments Posture Comments William stands with a large thoracic kyphosis most likely due to his wedge compression fractures and osteoporosis, he is able to straighten up though and squeeze the shoulder blades back, he denies pain with thoracic extension and reports it feels good to do, His neck is in a forward position with increased cervical extension PT-OP-K Range of Motion Start: 03/04/19 10:26 Freq: Status: Active Protocol: Document 04/01/19 12:00 GGD (Rec: 04/01/19 15:52 GGD [email or web address]) Cervical Spine Range of Motion Cervical Spine Active Testing Position Sitting Flexion 50 Extension 60 Rotation Left 70 Rotation Right 50 Lateral Flexion Left 30 Lateral Flexion Right 30 PT-OP-M Strength Start: 03/04/19 10:26 Freq: Status: Active Protocol: Document 03/04/19 10:27 AMH (Rec: 03/05/19 14:58 AMH [email or web address]) Scapula Strength Scapula Manual Muscle Testing Left Comments scapula upward rotation 4/5 Right Comments scapula upward rotation 4/5 PT-OP-Q Treatments Start: 03/04/19 10:26 Freq: Status: Active Protocol: Document 04/01/19 12:00 GGD (Rec: 04/01/19 15:50 GGD [email or web address]) Therapeutic Exercises Supine Exercises Deep C Neck Flexors Supine Exercise Name Deep C. Neck Flexor Contraction Reps/Minutes Hold 5 sec's Comments 1 Pillow, push into finger @ top of head cuing. Extra time needed to train Sitting Exercises 1 Sitting Exercise Name seated cervical sidebending stretch Reps/Minutes 2 reps x 30 seconds Standing Exercises 1 Standing Exercise Name standing wall posture. Resistance 5 PT-OP-T Assessment and Plan Start: 03/04/19 10:26 Freq: Status: Active Protocol: Document 04/01/19 12:00 GGD (Rec: 04/01/19 15:50 GGD [email or web address]) Physical Therapy Assessment Assessment Summary Assessment Pt improving with ROM and reports decrease in pain. He has a good understanding of HEP. He will return for recheck in three weeks or call if pain returns. Physical Therapy Plan Next Visit Focus/Plan Next Note Type Discharge Summary Next Visit Plan PT return for recheck in 3 weeks.
--- NOTE | 2019-07-07 08:34 | PT-OP ANOTE ---
Pt did not return for recheck; therefore the pt is being discharged from therapy due to lack of attendance.
== END 2019-04-01 13:00 ==
LOC: PHYS 12:00
PROVIDERS: PCP Family Medicine; Visit Provider Family Medicine
DX: M54.2 Cervicalgia (principal); M54.9 Dorsalgia, unspecified; M54.6 Pain in thoracic spine
CPT/HCPCS: 97110; 97140; 97161; 97535

== ENCOUNTER → 2019-05-06 09:19 | Outpatient (CLI) | payer MEDICARE, BC, SELFPAY ==
--- NOTE | 2019-05-06 | DI.RAD.S_ITS ---
PROCEDURE: XR KUB INDICATIONS: KIDNEY STONES TECHNIQUE: One view of the abdomen acquired. COMPARISON: [facility], CR, XR KUB, 09/23/2018, 10:26. FINDINGS: Surgical changes and devices: There is a right iliac stent. Bowel: Bowel gas pattern is normal. Note is made of moderate to large amount of stool in colon. Soft tissues: There are 3 small left renal calculi. The right renal contour is obscured by overlying stools. Visualized solid organ contours appear normal in size. Bones: No suspicious bony lesions. IMPRESSION: 1. Small left renal calculi are present. The right kidney is obscured. 2. moderate to large amount of stool in colon. Dictated by: Ovidio Rojo M.D. on 05/06/2019 at 15:30 Approved by: Ovidio Rojo M.D. on 05/06/2019 at 15:32
== END ==
PROVIDERS: PCP Family Medicine; Visit Provider Specialist
DX: N20.0 Calculus of kidney (principal)
CPT/HCPCS: 74018

== ENCOUNTER → 2019-05-29 11:59 | Outpatient (CLI) | payer MEDICARE, BC, SELFPAY ==
--- NOTE | 2019-05-29 12:07 | DI.CT.S_ITS ---
PROCEDURE: CT ABDOMEN PELVIS WO CON INDICATIONS: KIDNEY STONES TECHNIQUE: After the administration of oral contrast, 5 mm thick sections acquired from the diaphragms to the symphysis. 5 mm coronal and sagittal reformats were performed. For radiation dose reduction, the following was used: automated exposure control, adjustment of mA and/or kV according to patient size. COMPARISON: CT KUB 05/11/2016. FINDINGS: Image quality: Excellent. Evaluation of the solid organs is limited without IV contrast. ABDOMEN: Lung bases: Lung bases are clear. Heart size is normal. Coronary artery calcifications. Post median sternotomy. Solid organs: Liver is normal in size. Subcentimeter hyperdense focus in the medial right lower liver is unchanged since 2016. Gallbladder is unremarkable. Pancreas is normal in size. Spleen is normal in size. No adrenal nodules. Both kidneys are normal in size, without hydronephrosis. Several small bilateral kidney stones which appear similar to the prior CT. For example: The right mid kidney stone measuring 4 mm and left upper/mid kidney stone measuring 2 mm. Small left kidney lower pole simple cyst. Peritoneum and bowel: Bowel loops demonstrate normal wall thickness and caliber. No free fluid or air. Nodes and vessels: No retroperitoneal or mesenteric adenopathy by size criteria. Ectasia of the infrarenal abnormal aorta measuring up to 2.4 cm, (01/27). There is extensive calcified atherosclerotic aortoiliac plaque. Miscellaneous: No ventral hernias. PELVIS: Genitourinary: Bladder is unremarkable. No bladder stones. Calcified prostate gland. Miscellaneous: No significant inguinal hernias or adenopathy. Bones: No suspicious bony lesions. No vertebral body compression fractures. IMPRESSION: 1. No obstructing calculus. No hydronephrosis. 2. A few small bilateral kidney stones which are appear similar to 2016. Dictated by: Calvin Magallanes M.D. on 05/29/2019 at 12:32 Approved by: Calvin Magallanes M.D. on 05/29/2019 at 12:43
== END ==
PROVIDERS: Family Provider Family Medicine; PCP Family Medicine; Visit Provider Specialist
DX: N20.0 Calculus of kidney (principal)
CPT/HCPCS: 74176

== ENCOUNTER → 2019-11-05 09:35 | Outpatient (CLI) | payer MEDICARE, BC, SELFPAY ==
[2019-11-05 10:25] LABS: Add Manual Diff / Slide Review NO; Basophils Absolute Auto 0 /uL (0-100); Basophils Percent Auto 0.7 % (0-2); Eosinophils Absolute Auto 100 /uL (0-450); Eosinophils Percent Auto 2.1 % (2-4); Hematocrit 45.5 % (41-53); Hemoglobin 15.6 g/dL (13.5-17.5); Lymphocytes Absolute Auto 900 /uL (1100-4500); Lymphocytes Percent Auto 16.6 % (25-40); Mean Corpuscular HGB Conc 34.3 % (30-36); Mean Corpuscular Hemoglobin 31.6 PG (26-34); Mean Corpuscular Volume 92.1 fL (80-100); Monocytes Absolute Auto 400 /uL (0-900); Monocytes Percent Auto 8.3 % (3-14); Neutrophils Absolute Auto 3700 /uL (1500-7000); Neutrophils Percent Auto 72.3 % (50-75); Platelet Count 144 X10^3/uL (150-400); Red Blood Cell Count 4.94 X10^6/uL (4.5-5.9); Red Cell Distribution Width 13.5 % (11.6-14.8); White Blood Cell Count 5.2 X10^3/uL (4.5-11.0)
[2019-11-05 11:05] LABS: Alanine Aminotransferase 24 IU/L (<50); Albumin 4.1 g/dL (3.5-5.0); Albumin Globulin Ratio 1.4 (1.0-2.8); Alkaline Phosphatase 83 U/L (38-126); Aspartate Aminotransferase 33 IU/L (17-59); BUN Creatinine Ratio 24.3 (6-22); Bilirubin Total 0.5 mg/dL (0.2-1.3); Blood Urea Nitrogen 17 mg/dL (9-20); Calcium 9.2 mg/dL (8.4-10.2); Carbon Dioxide 25 mmol/L (22-32); Chloride 104 mmol/L (98-107); Cholesterol 135 mg/dL (140-199); Estimated Glomerular Filt Rate > 60.0 mL/min (>60); Globulin 2.9 g/dL (1.7-4.1); Glucose 99 mg/dL (80-110); HDL Cholesterol 42 mg/dL (40-60); HEMOLYSIS < 15 (0-50); LDL Cholesterol Calculated 72 mg/dL (<100); Sodium 141 mmol/L (137-145); Triglycerides 106 mg/dL (35-150)
[2019-11-05 11:34] LABS: Prostate Specific Antigen 1.78 ng/mL (0.10-4.00)
== END ==
PROVIDERS: PCP Family Medicine; Visit Provider Family Medicine
DX: I25.10 Atherosclerotic heart disease of native coronary artery without angina pectoris (principal); N40.0 Benign prostatic hyperplasia without lower urinary tract symptoms; E78.5 Hyperlipidemia, unspecified
CPT/HCPCS: 36415; 80053; 80061; 84153; 85025

== ENCOUNTER → 2019-11-11 14:12 | Outpatient (CLI) | payer MEDICARE, BC, SELFPAY | PROVIDERS: PCP Family Medicine; Referring Provider Family Medicine; Visit Provider Family Medicine | DX: M81.0 Age-related osteoporosis without current pathological fracture (principal); Z87.891 Personal history of nicotine dependence | CPT/HCPCS: 77080 ==

== ENCOUNTER → 2020-08-02 12:41 | Outpatient (CLI) | payer MEDICARE, BC, SELFPAY ==
--- NOTE | 2020-08-02 | DI.US.S_ITS ---
PROCEDURE: US RETROPERITONEAL COMP INDICATIONS: Calculus of kidney TECHNIQUE: Real-time scanning was performed of the kidneys and bladder, with image documentation. COMPARISON: [facility], CT, CT ABDOMEN PELVIS WO CON, 05/29/2019, 12:02. [facility], US, US RETROPERITONEAL COMP, 10/31/2018, 10:48. FINDINGS: Kidneys: Kidneys are normal in size. Right kidney measures 11.5 cm long; left kidney measures 12.7 cm long. Right renal cortical thickness is 1.1 cm; left renal cortical thickness is 1.4 cm. Renal cortical echotexture is normal. No hydronephrosis or nephrolithiasis. No suspicious solid mass lesions. Bilateral renal cysts, largest of which is on the left measuring up to 2.6 cm which is mildly complex. Bladder: Pre-void bladder volume is 231 mL. Post-void residual is 1.6 mL. Pre-void images demonstrate no intraluminal masses or stones. On pre-void images, bilateral ureteral jets are noted with color Doppler interrogation. (Of note, ureteral jets may not be detectable in up to 25% of cases due to insufficient differences in specific gravity between ureteral and bladder urine). Penile prosthetic reservoir seen adjacent to the urinary bladder. Miscellaneous: No free pelvic fluid. IMPRESSION: 1. Bilateral renal cysts; otherwise normal appearance of the kidneys bilaterally. Dictated by: Jarrod CHAPIN Interpreted: Samara Sewell MD on 08/02/2020 at 13:54 Approved by: Samara Sewell M.D. on 08/02/2020 at 15:42
--- NOTE | 2020-08-02 | DI.RAD.S_ITS ---
PROCEDURE: XR ABDOMEN 1V INDICATIONS: Calculus of kidney TECHNIQUE: One view of the abdomen acquired. COMPARISON: [facility], CT, CT ABDOMEN PELVIS WO CON, 05/29/2019, 12:02. [facility], US, US RETROPERITONEAL COMP, 08/02/2020, 13:06. FINDINGS: Surgical changes and devices: Surgical clips in the left upper quadrant. Iliac stents seen. Penile prosthesis reservoir or in the right pelvis. Bowel: Bowel gas pattern is normal. Somewhat prominent stool in the transverse colon. Soft tissues: Punctate calcifications in the region of the kidneys bilaterally. Punctate nonobstructing calculi were seen on the remote CT from 05/29/2019. Punctate calcification in the right lower quadrant. Visualized solid organ contours appear normal in size. Bones: No suspicious bony lesions. IMPRESSION: Punctate nonobstructing calculi are seen in both kidneys. -if clinically indicated consider further evaluation with CT KUB. Somewhat prominent stool in the colon. Dictated by: Calvin Magallanes M.D. on 08/02/2020 at 14:21 Approved by: Calvin Magallanes M.D. on 08/02/2020 at 14:26
== END ==
PROVIDERS: PCP Family Medicine; Referring Provider Family Medicine; Visit Provider Urology
DX: N20.0 Calculus of kidney (principal); N28.1 Cyst of kidney, acquired
CPT/HCPCS: 74018; 76770

== ENCOUNTER → 2021-01-24 11:58 | Outpatient (CLI) | payer MEDICARE, BC, SELFPAY ==
[2021-01-24 12:57] LABS: Alanine Aminotransferase 29 IU/L (<50); Albumin 4.3 g/dL (3.5-5.0); Albumin Globulin Ratio 1.6 (1.0-2.8); Alkaline Phosphatase 73 U/L (38-126); Aspartate Aminotransferase 43 IU/L (17-59); BUN Creatinine Ratio 18.8 (6-22); Bilirubin Total 0.5 mg/dL (0.2-1.3); Blood Urea Nitrogen 16 mg/dL (9-20); Calcium 9.7 mg/dL (8.4-10.2); Carbon Dioxide 32 mmol/L (22-32); Chloride 102 mmol/L (98-107); Cholesterol 153 mg/dL (140-199); Estimated Glomerular Filt Rate > 60.0 mL/min (>60); Globulin 2.7 g/dL (1.7-4.1); Glucose 101 mg/dL (80-110); HDL Cholesterol 47 mg/dL (40-60); HEMOLYSIS < 15 (0-50); LDL Cholesterol Calculated 86 mg/dL (<100); Potassium 4.5 mmol/L (3.4-5.1); Sodium 139 mmol/L (137-145); Triglycerides 101 mg/dL (35-150)
== END ==
PROVIDERS: PCP Family Medicine; Referring Provider Internal Medicine Cardiovascular Disease; Visit Provider Internal Medicine Cardiovascular Disease
DX: E78.5 Hyperlipidemia, unspecified (principal)
CPT/HCPCS: 36415; 80053; 80061

== ENCOUNTER → 2021-03-22 09:39 | Outpatient (CLI) | payer MEDICARE, BC, SELFPAY ==
[2021-03-26 12:13] LABS: Percent Free Testosterone 2.67 % (1.50-4.20); Testosterone Free 5.31 ng/dL (5.00-21.00); Testosterone Total 198.7 ng/dL (264.0-916.0)
== END ==
PROVIDERS: PCP Family Medicine; Referring Provider Family Medicine; Visit Provider Family Medicine
DX: M81.0 Age-related osteoporosis without current pathological fracture (principal)
CPT/HCPCS: 36415; 84402; 84403

== ENCOUNTER → 2021-04-06 09:54 | Outpatient (CLI) | payer MEDICARE, BC, SELFPAY ==
[2021-04-13 07:46] LABS: Percent Free Testosterone 4.18 % (1.50-4.20); Testosterone Free 15.14 ng/dL (5.00-21.00); Testosterone Total 362.1 ng/dL (264.0-916.0)
== END ==
PROVIDERS: PCP Family Medicine; Referring Provider Family Medicine; Visit Provider Family Medicine
DX: R79.89 Other specified abnormal findings of blood chemistry (principal)
CPT/HCPCS: 36415; 84402; 84403

== ENCOUNTER → 2022-03-07 10:52 | Outpatient (CLI) | payer MEDICARE, BC, SELFPAY ==
--- NOTE | 2022-03-07 | DI.RAD.S_ITS ---
PROCEDURE: XR ABDOMEN 1V INDICATIONS: HYPERCALCIURIA TECHNIQUE: One view of the abdomen acquired. COMPARISON: [facility], CT, CT ABDOMEN PELVIS WO CON, 05/29/2019, 12:02. [facility], CR, XR ABDOMEN 1V, 08/02/2020, 12:40. FINDINGS: Surgical changes and devices: Penile implant and pump within the right hemipelvis is present. The distal sternotomy wire is fractured. Bowel: Bowel gas pattern is normal. Soft tissues: Punctate calcifications are projected over the bilateral kidneys which may represent nonobstructing calculi. Punctate calcifications over the pelvis may represent phleboliths or distal ureteral or bladder calculi. Bones: No suspicious bony lesions. IMPRESSION: Punctate calcifications within the abdomen and pelvis. Differential considerations include intraluminal calcifications, renal calculi, ureteral calculi, or phleboliths. No acute intra-abdominal findings. Dictated by: Ute Adkins M.D. on 03/07/2022 at 14:56 Approved by: Ute Adkins M.D. on 03/07/2022 at 14:58
[2022-03-07 12:24] LABS: Alanine Aminotransferase 26 IU/L (<50); Albumin 4.3 g/dL (3.5-5.0); Albumin Globulin Ratio 1.6 (1.0-2.8); Alkaline Phosphatase 77 U/L (38-126); Aspartate Aminotransferase 37 IU/L (17-59); BUN Creatinine Ratio 19.3 (6-22); Bilirubin Total 0.6 mg/dL (0.2-1.3); Blood Urea Nitrogen 16 mg/dL (9-20); Calcium 8.9 mg/dL (8.4-10.2); Carbon Dioxide 33 mmol/L (22-32); Chloride 100 mmol/L (98-107); Cholesterol 133 mg/dL (140-199); Estimated Glomerular Filt Rate > 60 mL/min (>60); Globulin 2.7 g/dL (1.7-4.1); Glucose 102 mg/dL (80-110); HDL Cholesterol 43 mg/dL (40-60); HEMOLYSIS < 15 (0-50); LDL Cholesterol Calculated 71 mg/dL (<100); Potassium 3.6 mmol/L (3.4-5.1); Sodium 139 mmol/L (137-145); Triglycerides 95 mg/dL (35-150)
== END ==
PROVIDERS: PCP Family Medicine; Referring Provider Internal Medicine Cardiovascular Disease; Visit Provider Internal Medicine Cardiovascular Disease
DX: E78.5 Hyperlipidemia, unspecified (principal); R82.994 Hypercalciuria; N20.0 Calculus of kidney; R93.5 Abnormal findings on diagnostic imaging of other abdominal regions, including retroperitoneum
CPT/HCPCS: 36415; 74018; 80053; 80061

== ENCOUNTER → 2022-03-08 09:15 | Outpatient (CLI) | payer MEDICARE, BC, SELFPAY ==
--- NOTE | 2022-03-08 | DI.US.S_ITS ---
PROCEDURE: US RENAL COMPLETE INDICATIONS: HISTORY KIDNEY STONES TECHNIQUE: Real-time scanning was performed of the kidneys and bladder, with image documentation. COMPARISON: None. FINDINGS: Kidneys: Kidneys are normal in size. Right kidney measures 10.9 cm long; left kidney measures 12.8 cm long. Right renal cortical thickness is 1.9 cm; left renal cortical thickness is 1.5 cm. 1.2 cm right renal simple cyst present. 6 mm shadowing nonobstructing calculus noted in the left kidney. 2.5 cm left renal cortical simple cyst present.. Bladder: Nondistended. Prevoid volume 51 cc. Miscellaneous: No free pelvic fluid. Penile implant reservoir noted in the right lower quadrant. IMPRESSION: Nonobstructive left renal calculus, 6 mm Approved by: Diomedes Machado M.D. on 03/08/2022 at 15:04
== END ==
PROVIDERS: PCP Family Medicine; Referring Provider Urology; Visit Provider Urology
DX: N20.0 Calculus of kidney (principal); N28.1 Cyst of kidney, acquired
CPT/HCPCS: 76770

== ENCOUNTER → 2022-09-08 12:14 | Outpatient (CLI) | payer MEDICARE, BC, SELFPAY ==
[2022-09-08 13:25] LABS: Alanine Aminotransferase 30 IU/L (<50); Albumin 4.3 g/dL (3.5-5.0); Albumin Globulin Ratio 1.6 (1.0-2.8); Alkaline Phosphatase 64 U/L (38-126); Aspartate Aminotransferase 34 IU/L (17-59); BUN Creatinine Ratio 27.5 (6-22); Bilirubin Total 0.7 mg/dL (0.2-1.3); Blood Urea Nitrogen 22 mg/dL (9-20); Calcium 8.9 mg/dL (8.4-10.2); Carbon Dioxide 32 mmol/L (22-32); Chloride 101 mmol/L (98-107); Cholesterol 103 mg/dL (140-199); Estimated Glomerular Filt Rate > 60 mL/min (>60); Globulin 2.7 g/dL (1.7-4.1); Glucose 93 mg/dL (80-110); HDL Cholesterol 41 mg/dL (40-60); HEMOLYSIS < 15 (0-50); LDL Cholesterol Calculated 48 mg/dL (<100); Potassium 3.5 mmol/L (3.4-5.1); Sodium 139 mmol/L (137-145); Triglycerides 68 mg/dL (35-150)
== END ==
PROVIDERS: PCP Family Medicine; Referring Provider Internal Medicine Cardiovascular Disease; Visit Provider Internal Medicine Cardiovascular Disease
DX: E78.5 Hyperlipidemia, unspecified (principal); I25.10 Atherosclerotic heart disease of native coronary artery without angina pectoris
CPT/HCPCS: 36415; 80053; 80061

== ENCOUNTER → 2022-09-11 16:48 | Outpatient (CLI) | payer MEDICARE, BC, SELFPAY ==
--- NOTE | 2022-09-11 16:54 | DI.US.S_ITS ---
PROCEDURE: US CAROTID DOPPLER BI INDICATIONS: Occlusion and stenosis of bilat carotid arteries TECHNIQUE: Color and pulse Doppler interrogation was performed of both carotid systems, with image documentation and velocity measurements. COMPARISON: [facility], , US CAROTID DOPPLER BI, 10/31/2018, 10:30. FINDINGS: Stenosis calculations are based on SRU (Society of Radiologists in Ultrasound) criteria. Right side: Brachial blood pressure: 174/77 mm Hg. Common carotid artery peak systolic velocity: 105 cm/sec. Internal carotid artery peak systolic velocity: 97 cm/sec. Internal carotid artery end diastolic velocity: 26 cm/sec. External carotid artery peak systolic velocity: 160 cm/sec. ICA/CCA peak systolic ratio: 0.9 . Garcia scale imaging description: Atheromatous plaquing calcification is present at the bifurcation. Percent internal carotid artery stenosis: Less than 50% stenosis. Vertebral artery: Flow direction is antegrade. Left side: Brachial blood pressure: 171/76 mm Hg. Common carotid artery peak systolic velocity: 89 cm/sec. Internal carotid artery peak systolic velocity: 157 cm/sec. Internal carotid artery end diastolic velocity: 27 cm/sec. External carotid artery peak systolic velocity: 80 cm/sec. ICA/CCA peak systolic ratio: 1.8 . Garcia scale imaging description: Atheromatous plaquing calcification is present at the carotid bifurcation. Percent internal carotid artery stenosis: 50-69% stenosis. Vertebral artery: Flow direction is antegrade. There is an incidentally noted subcentimeter inferior right thyroid nodule. IMPRESSION: 1. Less than 50% stenosis of the right internal carotid artery. 2. 50-69% stenosis of the left internal carotid artery. 3. Subcentimeter right thyroid nodule. If further characterization is warranted, nonemergent thyroid ultrasound could be used. Dictated by: Ute Adkins M.D. on 09/12/2022 at 10:44 Approved by: Ute Adkins M.D. on 09/12/2022 at 10:48
== END ==
PROVIDERS: PCP Family Medicine; Referring Provider Nurse Practitioner; Visit Provider Nurse Practitioner
DX: I65.23 Occlusion and stenosis of bilateral carotid arteries (principal); E04.1 Nontoxic single thyroid nodule
CPT/HCPCS: 93880

== ENCOUNTER → 2022-11-14 11:24 | Outpatient (CLI) | payer MEDICARE, BC, SELFPAY ==
[2022-11-17 13:10] LABS: Cholesterol, Total 101 mg/dL (100-199); HDL-Cholesterol 51 mg/dL (>39); HDL-Particle (Total) 37.2 umol/L (>=30.5); LDL Particle 414 nmol/L (<1000); LDL Size 19.8 nm (>20.5); LDL-Cholsterol 36 mg/dL (0-99); LP-IR Score 44 (<=45); Small LDL- Particle 235 nmol/L (<=527); Triglycerides 60 mg/dL (0-149)
== END ==
PROVIDERS: PCP Family Medicine; Referring Provider Nurse Practitioner; Visit Provider Nurse Practitioner
DX: E78.5 Hyperlipidemia, unspecified (principal)
CPT/HCPCS: 36415; 80061; 83704

== ENCOUNTER → 2022-12-04 10:56 | Outpatient (CLI) | payer MEDICARE, BC, SELFPAY ==
[2022-12-04 12:12] LABS: Appearance Urine UA CLEAR; Bilirubin Urine UA NEGATIVE (NEGATIVE); Color Urine UA YELLOW; Glucose Urine UA NEGATIVE (Negative); Ketones Urine UA NEGATIVE (NEGATIVE); Leukocyte Esterase Urine UA NEGATIVE (NEGATIVE); Nitrite Urine UA NEGATIVE (Negative); Occult Blood Urine UA NEGATIVE (Negative); Protein Urine UA 1+ (Negative); Specific Gravity Urine UA 1.015 (1.000-1.035); Urobilinogen Urine UA 0.2 E.U./dL (0.2); pH Urine UA 7.5 (4.5-8.0)
[2022-12-04 12:21] LABS: Bacteria Urine None Seen; Culture Indicated Urine Cult Not Indicated; RBC Urine None Seen (0-5/HPF); Squamous Epithelial Cell Urine None Seen (0-5/HPF); WBC Urine None Seen (0-5/HPF)
== END ==
PROVIDERS: PCP Family Medicine; Referring Provider Physician Assistant Surgical; Visit Provider Physician Assistant Surgical
DX: N20.0 Calculus of kidney (principal)
CPT/HCPCS: 81001

== ENCOUNTER → 2022-12-07 12:17 | Outpatient (CLI) | payer MEDICARE, BC, SELFPAY ==
--- NOTE | 2022-12-07 | DI.US.S_ITS ---
PROCEDURE: US RENAL COMPLETE INDICATIONS: Calculus of kidney TECHNIQUE: Real-time scanning was performed of the kidneys and bladder, with image documentation. COMPARISON: [facility], , RENAL COMPLETE, 03/08/2022, 9:27. FINDINGS: Kidneys: Kidneys are normal in size. Right kidney measures 12.4 cm long; left kidney measures 12.1 cm long. Right renal cortical thickness is 1.5 cm; left renal cortical thickness is 1.6 cm. Renal cortical echotexture is normal. Again noted is a left renal stone measuring 6 mm. It is nonobstructive. No suspicious solid mass lesions. Bladder: Pre-void bladder volume is 70 mL. Post-void residual is 0 mL. Pre-void images demonstrate no intraluminal masses or stones. On pre-void images, no ureteral jets are noted with color Doppler interrogation. (Of note, ureteral jets may not be detectable in up to 25% of cases due to insufficient differences in specific gravity between ureteral and bladder urine). Miscellaneous: No free pelvic fluid. IMPRESSION: Normal size kidneys with no evidence of hydronephrosis. Unchanged 6 mm left renal stone. Dictated by: Orion Green M.D. on 12/07/2022 at 15:47 Approved by: Orion Green M.D. on 12/07/2022 at 15:58
== END ==
PROVIDERS: PCP Family Medicine; Referring Provider Urology; Visit Provider Urology
DX: N20.0 Calculus of kidney (principal)
CPT/HCPCS: 76770

== ENCOUNTER → 2023-01-15 11:40 | Outpatient (CLI) | payer MEDICARE, BC, SELFPAY ==
--- NOTE | 2023-01-15 11:41 | DI.RAD.S_ITS ---
PROCEDURE: XR THORACIC SPINE 3V INDICATIONS: pain TECHNIQUE: 3 views of the thoracic spine were acquired. COMPARISON: [facility], CR, XR THORACIC SPINE 3V, 01/16/2019, 14:32. [facility], CR, T AND L SPINE 2 TO 3 VIEWS, 05/01/2016, 13:50. FINDINGS: Bones: No fractures or dislocations. No suspicious bony lesions. 12 pairs of ribs are noted, and appear intact where visualized. Convex left scoliosis. Moderate, multilevel degenerative disc disease. Mild loss of vertebral body T11 and T12. Soft tissues: No paravertebral stripe thickening. IMPRESSION: Chronic appearing compression deformities of the T11 and T12 vertebral bodies. Dictated by: Red Pickard M.D. on 01/15/2023 at 12:38 Approved by: Red Pickard M.D. on 01/15/2023 at 12:39
--- NOTE | 2023-01-15 11:41 | DI.RAD.S_ITS ---
PROCEDURE: XR LUMBAR SPINE 2-3V INDICATIONS: pain TECHNIQUE: 3 views of the lumbar spine were acquired. COMPARISON: None. FINDINGS: Bones: 5 [id number] vertebrae are present. There is normal bony alignment. Mild to moderate, multilevel degenerative disc disease, most prominent at T12-L1 and L1-2. Soft tissues: Overlying bowel gas pattern is normal. No suspicious soft tissue calcifications. IMPRESSION: No acute, displaced fracture or traumatic subluxation. Mild to moderate, multilevel degenerative disc disease. Dictated by: Red Pickard M.D. on 01/15/2023 at 12:39 Approved by: Red Pickard M.D. on 01/15/2023 at 12:40
== END ==
PROVIDERS: PCP Family Medicine; Referring Provider Family Medicine; Visit Provider Family Medicine
DX: M51.34 Other intervertebral disc degeneration, thoracic region (principal); M51.35 Other intervertebral disc degeneration, thoracolumbar region; M51.36 Other intervertebral disc degeneration, lumbar region; M43.9 Deforming dorsopathy, unspecified; M54.50 Low back pain, unspecified
CPT/HCPCS: 72072; 72100

== ENCOUNTER → 2023-01-22 09:16 | Outpatient (CLI) | payer MEDICARE, BC, SELFPAY ==
--- NOTE | 2023-01-22 09:19 | DI.MRI.S_ITS ---
PROCEDURE: MR THORACIC SPINE WO CON INDICATIONS: Pain in thoracic spine TECHNIQUE: Noncontrast sagittal T1 spine echo and T2 fast spin echo, sagittal STIR, and T2 fast spin echo through the thoracic spine. COMPARISON: None. FINDINGS: Image quality: Excellent. Alignment and Curvature: Accentuated thoracic kyphosis is seen. Bone Marrow: There is a remote appearing central compression deformity seen of T7, with approximately 30% loss of height centrally. The T11 vertebral body is abnormal, with 10-20% loss of height. There is decreased T1 weighted signal with increased T2 weighted and STIR signal. Along the posterior aspect this vertebral body, there is abnormal soft tissue, with increased STIR signal seen, as on series 6 images 8 and 9. Areas of marrow sparing can be seen along the posterior left aspect of this vertebral body, as on series 5 image 11 and on series 6, image 11. Several levels of mild, chronic appearing anterior wedge deformity can be seen elsewhere. Scattered foci are seen, which are hyperintense on T1-weighted and T2-weighted imaging, which are most consistent with benign vertebral body hemangiomas. Spinal Cord: Visualized spinal cord is normal in size and signal. Paraspinous Soft Tissues: No paravertebral masses. Sternotomy wires are seen. Miscellaneous: At least moderate lower cervical spine degenerative change is partially seen. At the T11-T12 level, the disc height is relatively well preserved. Loss of disc signal can be seen. There is a central/left disc extrusion seen. At the T12-L1 level, there is moderate loss of disc height seen. Mild disc bulge is seen, with a central/left disc protrusion. No significant neural foraminal narrowing can be seen. Mild central canal narrowing is seen. Milder degenerative changes are seen elsewhere. IMPRESSION: Moderate to severe central canal narrowing can be seen posterior to the T11 level. There is soft tissue material seen posterior to the T11 vertebral body, which is felt most likely be related to a significant disc extrusion from the T11-T12 level. Abnormal signal can be seen within the T11-T12 level. This is attributed to a benign compression deformity. Metastatic disease is possible, although this is considered to be less likely. If it would be helpful for clinical management decision making in this patient with this given history, please consider a dedicated thoracic MRI with IV contrast. Alternatively, a whole-body nuclear medicine bone scan could be considered for further evaluation. Dictated by: Eren Wong M.D. on 01/22/2023 at 12:45 Approved by: Eren Wong M.D. on 01/22/2023 at 12:51
== END ==
PROVIDERS: PCP Family Medicine; Referring Provider Family Medicine; Visit Provider Family Medicine
DX: M48.04 Spinal stenosis, thoracic region (principal); M54.6 Pain in thoracic spine
CPT/HCPCS: 72146

== ENCOUNTER → 2023-02-06 | Outpatient (CLI) | payer MEDICARE, BC, SELFPAY ==
--- NOTE | 2023-02-06 11:50 | DI.RAD.S_ITS ---
Bone Density Report Name: YANCI STEEN Age: 82 Sex: Male Ethnicity: White Date of : 1940 Indication: senile osteoporosis; prior fracture; Referring Provider: ASHKAN FAIRBANKS Study: Bone densitometry was performed. Exam Date: February 06, 2023 Accession number: [id number] Bone Density: Region BMD T-score Z-score Classification AP Spine(L1-L4) 0.764 -2.6 -1.7 Osteoporosis Femoral Neck (Left) 0.533 -2.8 -1.2 Osteoporosis Total Hip (Left) 0.594 -2.9 -1.6 Osteoporosis Femoral Neck (Right) 0.540 -2.8 -1.2 Osteoporosis Total Hip (Right) 0.613 -2.7 -1.5 Osteoporosis Total Hip Mean 0.603 -2.8 -1.6 Osteoporosis World Health Organization criteria for BMD impression classify patients as: Normal (T-score at or above -1.0), Osteopenia (T-score between -1.0 and -2.5), or Osteoporosis (T-score at or below -2.5). 10-year Fracture Risk: FRAX not reported because: Some T-score for Spine Total or Hip Total or Femoral Neck at or below -2.5 Prior hip or vertebral fracture Previous Exams: -- Region Exam Age BMD T-score BMD Change BMD Change Date g/cm2 vs Baseline vs Previous -- AP Spine (L1-L4) 02/06/2023 82 0.764 -2.6 -0.124 (-13.9%)# -0.124 (-13.9%)# 11/11/2019 79 0.888 -1.4 Total Hip(Left) 02/06/2023 82 0.594 -2.9 -0.022 (-3.6%)# -0.022 (-3.6%)# 11/11/2019 79 0.616 -2.7 Total Hip(Right) 02/06/2023 82 0.613 -2.7 -0.047 (-7.1%)# -0.047 (-7.1%)# 11/11/2019 79 0.659 -2.3 -- *Denotes significance at 95% confidence level, LSC for AP Spine = 0.022 g/cm2, LSC for Total Hip = 0.027 g/cm2 # Denotes dissimilar scan types or analysis methods Impression: The patient has established osteoporosis, based on the Left Total Hip T-score and the existence of a prior fracture. The patient has risk factors, including: previous fracture. No significant bone loss was observed. Discussion: HIGH RISK OF FRACTURE. BONE DENSITY IS UNDESIRABLY LOW AT ONE OR MORE SKELETAL SITES, CONSISTENT WITH OSTEOPOROSIS. This patient's lowest T-score, in a patient who has previously fractured, meets the World Health Organization's (WHO) criteria for severe osteoporosis. In untreated patients, the risk of osteoporotic fracture increases approximately two-fold for each 1.0 SD decrease in T-score. Low bone density is not the only risk factor for fracture; also consider factors such as patient's age, frailty or poor health, risk of falling, risk of injury, previous osteoporotic fracture, family history of osteoporosis, cigarette smoking, low body weight, etc. Not everyone with low bone mineral density has osteoporosis; osteomalacia and other metabolic bone disorders should also be considered. Patients who have osteoporosis should be evaluated for specific diseases and conditions (secondary causes) that may cause or contribute to bone loss. The National Osteoporosis Foundation (NOF) recommends pharmacologic intervention for men with BMD at this level (a T-score of -2.5 or below). The patient should follow a healthful lifestyle (good nutrition with adequate calcium and vitamin D, and appropriate weight-bearing exercise). Follow-Up: Consider a repeat BMD and Vertebral Fracture Assessment (VFA) exam in 2 years or sooner if medically necessary, to reassess this patient's status. Reported by: JASPER GOMEZ M.D. on 02/06/2023 12:14:00 PM.
== END ==
LOC: RAD 11:49
PROVIDERS: PCP Family Medicine; Referring Provider Family Medicine; Visit Provider Family Medicine
DX: M81.0 Age-related osteoporosis without current pathological fracture (principal)
CPT/HCPCS: 77080

== ENCOUNTER → 2023-02-07 11:20 | Outpatient (CLI) | payer MEDICARE, BC, SELFPAY ==
[2023-02-07 13:08] LABS: Alanine Aminotransferase 31 IU/L (<50); Albumin 4.2 g/dL (3.5-5.0); Albumin Globulin Ratio 1.4 (1.0-2.8); Alkaline Phosphatase 104 U/L (38-126); Aspartate Aminotransferase 36 IU/L (17-59); Bilirubin Total 0.7 mg/dL (0.2-1.3); Blood Urea Nitrogen 20 mg/dL (9-20); Carbon Dioxide 38 mmol/L (22-32); Chloride 93 mmol/L (98-107); Estimated Glomerular Filt Rate > 60 mL/min (>60); Globulin 2.9 g/dL (1.7-4.1); Glucose 92 mg/dL (80-110); HEMOLYSIS < 15 (0-50); Potassium 3.2 mmol/L (3.4-5.1); Sodium 138 mmol/L (137-145); Total Protein 7.1 g/dL (6.3-8.2)
== END ==
PROVIDERS: PCP Family Medicine; Referring Provider Nurse Practitioner; Visit Provider Nurse Practitioner
DX: I10 Essential (primary) hypertension (principal)
CPT/HCPCS: 36415; 80053

== ENCOUNTER 2023-02-28 13:43 | Outpatient (CLI) | payer MEDICARE, BC, SELFPAY ==
--- NOTE | 2023-02-28 13:45 | DI.RAD.S_ITS ---
PROCEDURE: PAIN C/T INTERLAMINAR INJECT INDICATIONS: THORACIC RADICULOPATHY COMPARISON: [facility], CR, XR THORACIC SPINE 3V, 01/15/2023, 11:56. [facility], CR, XR LUMBAR SPINE 2-3V, 01/15/2023, 11:56. FINDINGS: Fluoroscopic spot filming was performed to verify placement of spinal needles at the T11-T12 level(s), as labeled on the films. Appropriate location(s) of the needle tip(s) was confirmed by injection of iodinated contrast. Note is made of a sternal wire, which is fractured. IMPRESSION: Fluoroscopy guidance for pain management. Dictated by: Ovidio Rojo M.D. on 02/28/2023 at 15:46 Approved by: Ovidio Rojo M.D. on 02/28/2023 at 15:47
[2023-02-28 14:00] VITALS: BP 186/93; PULSE 89; RESP 18; TEMP 36.2; O2SAT 97
[2023-02-28 14:13] VITALS: BP 189/92; PULSE 92; RESP 24; O2SAT 97
[2023-02-28] MEDS: DEXAMETHASONE 10 MG/ML VIAL 20 MG INJ (14:16)
[2023-02-28] MEDS: IOPAMIDOL 15 ML VIAL 3 ML INJ (14:17)
[2023-02-28 14:18] VITALS: BP 184/89; PULSE 86; RESP 16; O2SAT 98
[2023-02-28 14:23] VITALS: BP 180/86; PULSE 86; RESP 16; O2SAT 98
[2023-02-28 14:27] VITALS: BP 170/81; PULSE 76; RESP 14; O2SAT 97
[2023-02-28 14:30] VITALS: BP 170/112; PULSE 94; RESP 18; O2SAT 98
--- NOTE | 2023-02-28 14:53 | P.PCN_ITS ---
Date/Time/Diagnoses Date of procedure: 02/28/23 Time of procedure: 14:00 Procedure Notes Physician: Rajan Francois Total Fluoroscopy time (seconds): 22 Total sedation minutes: 0 Procedure in detail & Post-procedure care: T11-12 Interlaminar Epidural Steroid Injection Indications: Michael is presenting for treatment of lumbar radiculopathy with low back and leg pain. Preoperative diagnosis: Thoracic radiculopathy Postoperative diagnosis: Same Focused Examination: Ax3 Mood and affect are normal Vital Signs: VSS Consent: Following review of allergies and potential side effects/complications, including, but not necessarily limited to, infection, allergic reaction, local tissue breakdown, stroke, temporary or permanent nerve injury, paralysis, and possible , the patient indicated that they understood and agreed to proceed.? An informed consent document was signed by the patient, witnessed by a nurse and placed in the patient's chart.? Additionally, other treatment options including medications and physical therapy were reviewed with the patient. All questions were answered. Site was then marked. Anesthesia: Local Position: Prone Monitoring: NIBP, Pulse oximetry, 3 lead EKG Needle used: 18 G 3.5? Tuohy Contrast: Isovue 300M Injectate: Dexamethasone 15 mg with 1% lidocaine 1.5 mL Technique: The skin was prepped with chloraprep and then draped in a sterile fashion. Time out was performed as per protocol. Oxygen applied via NC. Skin and subcutaneous structures of the needle entry site was then infiltrated with 3 mL of lidocaine 1%. Under AP, lateral and contralateral oblique fluoroscopic control, the Tuohy needle was guided into the T11-12 epidural space. The space was accessed with loss of resistance technique. Isovue 300M was then injected and the spread was consistent with the epidural space. There was no evidence for intravascular or intrathecal uptake. Test dose with 1% lidocaine was utilized. Vital signs were stable and patient declined any adverse effects after test dose. After negative aspiration, the above-mentioned injectate was then slowly administered and the needle withdrawn. The patient expressed no unusual discomfort or paresthesias during the injection. Band-Aids applied to injection sites. EBL: less than 1 ml Complications: None Post Procedure: Patient was taken to the recovery and monitored. The patient was provided a Pain Log to continue to record the patient's response to the target- specific procedure prior to the patient's follow-up visit with the referring physician. Patient was stable upon discharge. Detailed post procedure instructions were provided. Patient was asked to call in the event of worsening pain, fever, weakness, numbness or bladder or bowel incontinence.
== END 2023-02-28 14:43 | disposition home or self-care (01) ==
LOC: RAD 13:44
PROVIDERS: PCP Family Medicine; Referring Provider Anesthesiology; Visit Provider Anesthesiology
DX: M54.14 Radiculopathy, thoracic region (principal)
CPT/HCPCS: 62321; J1100

== ENCOUNTER → 2023-03-12 14:41 | Outpatient (CLI) | payer MEDICARE, BC, SELFPAY ==
[2023-03-12 15:31] LABS: Estimated Glomerular Filt Rate > 60 mL/min (>60)
== END ==
PROVIDERS: PCP Family Medicine; Referring Provider Radiology Diagnostic Radiology; Visit Provider Radiology Diagnostic Radiology
DX: Z12.9 Encounter for screening for malignant neoplasm, site unspecified (principal)
CPT/HCPCS: 36415; 82565

== ENCOUNTER → 2023-03-13 11:52 | Outpatient (CLI) | payer MEDICARE, BC, SELFPAY ==
--- NOTE | 2023-03-13 | DI.CT.S_ITS ---
PROCEDURE: CT CHEST ABD PEL WO CON INDICATIONS: Encounter for screening for malignant neoplasm TECHNIQUE: After the administration of oral contrast, 5 mm thick sections acquired from the lung apices to the symphysis pubis. 5 mm thick coronal and sagittal reformats acquired, with additional 7 mm coronal MIP reformats through the lungs. For radiation dose reduction, the following was used: automated exposure control, adjustment of mA and/or kV according to patient size. COMPARISON: [facility], CT, CT ABDOMEN PELVIS WO CON, 05/29/2019, 12:02. FINDINGS: Image quality: Excellent. CHEST: Lungs and pleura: Central and peripheral airways are normal without bronchial wall thickening or bronchiectasis. No suspicious nodules or masses. Scattered small peripheral foci subpleural reticulation, trace peripheral traction bronchiectasis in the mid to lower lung zones. No ground-glass opacities or dense consolidations. No pleural effusions or calcified pleural plaque. Mediastinum: Heart size within normal limits. CABG change and dense coronary artery calcification. No pericardial effusion. Ectatic and atherosclerotic aorta. No pulmonary artery enlargement. No mediastinal or hilar adenopathy. No anterior or posterior mediastinal masses. The esophagus is normal caliber without hiatal hernia. Chest wall: No axillary or supraclavicular adenopathy by size criteria. Thyroid gland has a normal CT appearance ABDOMEN: Solid organs: Normal unenhanced liver, gallbladder, biliary tree, pancreas, and spleen. Subcentimeter low-attenuation nodule in the left adrenal gland. The right adrenal and appears normal. There are several punctate, nonobstructing bilateral intrarenal calculi as well as scattered cortical hypodensity. No hydronephrosis or hydroureter. Peritoneum and bowel: Stomach and small bowel loops are normal caliber. Normal appendix. Mildly increased quantity of solid stool present in the colon. No colon wall thickening or significant diverticula. No free fluid or free air. Nodes and vessels: Heavy mid and distal abdominal aortic calcification as well as calcification at the branch artery origins. Small fusiform distal abdominal aneurysm measures 3.0 x 2.8 cm for a length of 2.9 cm extending to the bifurcation. Proximal common iliac artery stents are present. No retroperitoneal adenopathy or mass. Miscellaneous: Tiny fat containing umbilical hernia. PELVIS: Genitourinary: Bladder wall thickness is normal. Right anterior pelvis penile prosthesis pump. The prostate gland is diminutive. Miscellaneous: No inguinal hernias or adenopathy. Bones: There is a mild central superior endplate compression fracture of T7. Moderate T11 compression fracture with lucent center and peripheral sclerosis. Scalloping T12 superior endplate compression fracture. IMPRESSION: 1. 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 2. Bilateral nephrolithiasis. No obstructive uropathy. 3. Distal abdominal aortic aneurysm, bi-iliac stent, and heavy coronary and systemic atherosclerotic calcification. 4. Mixed lucent and sclerotic T11 compression fracture is suggestive of pathologic fracture. 5. Diminutive prostate gland and penile prosthesis. Dictated by: Hailey Harley M.D. on 03/13/2023 at 22:17 Approved by: Hailey Harley M.D. on 03/13/2023 at 22:37
== END ==
PROVIDERS: PCP Family Medicine; Referring Provider Orthopaedic Surgery Orthopaedic Surgery of the Spine; Visit Provider Orthopaedic Surgery Orthopaedic Surgery of the Spine
DX: Z12.9 Encounter for screening for malignant neoplasm, site unspecified (principal); S22.080A Wedge compression fracture of T11-T12 vertebra, initial encounter for closed fracture; J84.10 Pulmonary fibrosis, unspecified; N20.0 Calculus of kidney; I25.10 Atherosclerotic heart disease of native coronary artery without angina pectoris; I70.0 Atherosclerosis of aorta; I71.40 Abdominal aortic aneurysm, without rupture, unspecified; Z95.1 Presence of aortocoronary bypass graft
CPT/HCPCS: 71250; 74176

== ENCOUNTER → 2023-04-14 15:07 | Outpatient (CLI) | payer MEDICARE, BC, SELFPAY ==
--- NOTE | 2023-04-14 | DI.MRI.S_ITS ---
PROCEDURE: MR THORACIC SPINE WO/W CON INDICATIONS: COMPRESSION FX'S TECHNIQUE: Noncontrast sagittal T1 spin echo and T2 fast spin echo, sagittal STIR, axial T1 and T2 fast spin echo through the thoracic spine. After the administration of contrast, axial and sagittal T1 spin echo with fat saturation through the thoracic spine. COMPARISON: [facility], MR, MR THORACIC SPINE WO CON, 01/22/2023, 9:31. [facility], CT, CT CHEST ABD PEL WO CON, 03/13/2023, 13:23. [facility], MR, MR LUMBAR SPINE WO/W CON, 04/14/2023, 15:22. FINDINGS: Image quality: Excellent. Alignment and curvature: Mild levoconvex scoliotic curvature is noted. Accentuated thoracic kyphosis is seen. Marrow: Compression fractures can be seen at several levels. At T7, there is a stable compression deformity seen, with 30-40% loss of height anteriorly. Interval compression fractures can be seen at T11, T12, and L1. There is decreased T1 weighted signal with increased STIR signal and abnormal enhancement seen within these vertebral bodies. The abnormal signal extends into the posterior elements. No definite posterior displacement of fracture fragments can be seen. At T11 and T12, there is 40-50% loss of height centrally. At L1, there is 10-20% loss of height anteriorly. Spinal cord: Visualized spinal cord is of normal signal and size, without abnormal enhancement. Paraspinous soft tissues: No paravertebral masses or abnormal enhancement. Sternotomy wire wires are noted. Miscellaneous: Least moderate neural foraminal narrowing can be seen at T10-T11, with moderate bilateral neural foraminal narrowing seen at T11-T12. At the T11-T12 level, there is at least moderate central canal narrowing seen, with mass effect upon the ventral spinal cord, as on series 11, image 14. Milder degenerative changes are seen elsewhere. IMPRESSION: Pathologic fractures can be seen at T11, T12, and L1. At the T11-T12 level, there is at least moderate central canal narrowing, with associated mass effect upon the ventral spinal cord. Additional findings: Remote T7 compression deformity Sternotomy wires Dictated by: Eren Wong M.D. on 04/16/2023 at 17:40 Approved by: Eren Wong M.D. on 04/16/2023 at 17:46
--- NOTE | 2023-04-14 | DI.MRI.S_ITS ---
PROCEDURE: MR LUMBAR SPINE WO/W CON INDICATIONS: COMPRESSION FX'S TECHNIQUE: Noncontrast sagittal T1 spin echo and T2 fast spin echo, sagittal STIR, axial T1 and T2 fast spin echo through the lumbar spine. In cases with scoliosis, additional coronal T2 fast spin echo may be performed. After the administration of contrast, sagittal and axial T1 spin echo with fat saturation through the lumbar spine. COMPARISON: [facility], MR, MR THORACIC SPINE WO/W CON, 04/14/2023, 15:22. [facility], CT, CT CHEST ABD PEL WO CON, 03/13/2023, 13:23. FINDINGS: Image quality: Excellent. Alignment and curvature: S-shaped scoliotic curvature is seen. No focal AP alignment abnormality is seen. Marrow: There is a T12 compression deformity again seen, with 40-50% loss of height centrally. At L1, there is a mild compression deformity seen, with 10-20% loss height anteriorly. Associated decreased T1 weighted signal and increased STIR signal can be seen, with increased enhancement within these vertebral bodies. The other vertebral bodies demonstrate no significant abnormal signal. Spinal cord: Conus medullaris terminates at the L1 level. Visualized spinal cord demonstrates normal signal, without suspicious enhancement. Paraspinous soft tissues: No paravertebral masses or abnormal enhancement. This patient has transitional lumbar anatomy. For the purposes of this examination, the level with the 1st non rib-bearing segment is considered to be L1. This patient has 6 lumbar type vertebral bodies that are labeled as L1 through L6. T12-L1: Normal appearance. L1-L2: Mild loss of disc height is seen. Mild generalized disc bulge is seen. No significant neural foraminal or central canal narrowing can be seen. L2-L3: Moderate loss of disc height is seen on the right. Loss of disc signal is seen. Mild to moderate disc bulge is seen. Mild to moderate facet hypertrophy is seen. There is at least moderate bilateral neural foraminal narrowing. There is a degree of compression seen upon the exiting nerve roots. Mild central canal narrowing is seen. L3-L4: No significant abnormality is seen. L4-L5: Mild loss of disc height is seen. Loss of disc signal is seen. Moderate generalized disc bulge is seen. There is a central disc protrusion. There is a focal annular fissure seen posteriorly. Moderate facet joint hypertrophy is seen. Mild bilateral neural foraminal narrowing is seen. Moderate central canal narrowing is seen. L5-L6: The disc height is well-preserved. Loss of disc signal is seen at this level. Moderate disc bulge is seen, with a central disc protrusion. Moderate facet joint hypertrophy is seen. At least moderate bilateral neural foraminal narrowing can be seen. There is a degree of compression seen upon the exiting nerve roots. Moderate central canal narrowing is seen. L6-S1: The disc height is well-preserved. Loss of disc signal is seen at this level. Mild generalized disc bulge is seen. Moderate facet joint hypertrophy is seen. At least moderate left-sided and moderate right-sided neural foraminal narrowing can be seen. No significant central canal narrowing is seen. 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 Multiple levels of underlying degenerative change can be seen. Dictated by: Eren Wong M.D. on 04/16/2023 at 17:50 Approved by: Eren Wong M.D. on 04/16/2023 at 17:56
== END ==
PROVIDERS: PCP Family Medicine; Referring Provider Orthopaedic Surgery Orthopaedic Surgery of the Spine; Visit Provider Orthopaedic Surgery Orthopaedic Surgery of the Spine
DX: S22.080A Wedge compression fracture of T11-T12 vertebra, initial encounter for closed fracture (principal); M80.0AXA Age-related osteoporosis with current pathological fracture, other site, initial encounter for fracture; M48.04 Spinal stenosis, thoracic region; M47.816 Spondylosis without myelopathy or radiculopathy, lumbar region
CPT/HCPCS: 72157; 72158; A9579

== ENCOUNTER 2023-04-25 12:23 | Outpatient (CLI) | payer MEDICARE, BC, SELFPAY ==
[2023-04-25] VITALS (10 sets, daily range): BP systolic 148–179; BP diastolic 72–103; PULSE 73–81; RESP 15–22; TEMP 36; O2SAT 95–98
--- NOTE | 2023-04-25 12:24 | DI.RAD.S_ITS ---
PROCEDURE: PAIN C/T FACET INJ/BLK 1ST MIMI COMPARISON: None. INDICATIONS: SPONDYLOSIS FINDINGS: A single lateral C-arm image demonstrates multilevel needle placement for medial branch block, labeled as the T9, T10, and T11 levels. IMPRESSION: C-arm imaging utilized during medial branch block procedure in the thoracic spine. Dictated by: Orion Green M.D. on 04/25/2023 at 16:20 Approved by: Orion Green M.D. on 04/25/2023 at 16:23
[2023-04-25] MEDS: MIDAZOLAM 2 MG/2 ML VIAL 1 MG IV (13:00)
[2023-04-25] MEDS: BUPIVACAINE 0.5% (PF) 10 ML VIAL 5 ML INJ (13:06)
[2023-04-25] MEDS: IOPAMIDOL 15 ML VIAL 3 ML INJ (13:06)
--- NOTE | 2023-04-25 13:25 | P.PCN_ITS ---
Date/Time/Diagnoses Date of procedure: 04/25/23 Time of procedure: 13:00 Procedure Notes Physician: Rajan Francois Total Fluoroscopy time (seconds): 33 Total sedation minutes: 13 Procedure in detail & Post-procedure care: Bilateral T9, 10, 11 Thoracic Medial Branch Blocks Indications: Neck is presenting for treatment of thoracic spondylosis with back pain. Preoperative diagnosis: Thoracic spondylosis Postoperative diagnosis: Same Pre-procedure History: Patient demonstrates today moderate to severe non- radicular back pain without neurologic deficit aggravated by hyperextension yes Back pain greater than leg pain? yes Patient today has tenderness over the suspected joint(s) yes History of post-traumatic injury? no Hypertrophic arthropathy yes Back pain associated with suspected motion segment instability, hypermobility or pseudoarthrosis no Pre-testing pain score (VAS): 7/10 Focused Examination: Ax3 Mood and affect are normal Vital Signs: VSS ASA: 3 Consent: Following review of allergies and potential side effects/complications, including, but not necessarily limited to, infection, allergic reaction, local tissue breakdown, stroke, temporary or permanent nerve injury, paralysis, and possible , the patient indicated that they understood and agreed to proceed.? An informed consent document was signed by the patient, witnessed by a nurse and placed in the patient's chart.? Additionally, other treatment options including medications and physical therapy were reviewed with the patient. All questions were answered. Site was then marked. Anesthesia: Local Position: Prone Monitoring: NIBP, Pulse oximetry, 3 lead EKG Needle used: 22 ga 3.5 inch spinal needle Contrast: Isovue 300M Injectate: 0.5% bupivacaine 0.5 cc per site Procedure: The patient was brought into the procedure room and positioned into the prone position. Skin was prepped with a Chloraprep solution, allowed to air dry, and then draped in sterile fashion.? The right T10-11 and T11-12 facet joints were visually identified with fluoroscopy. Lidocaine 1% was used to anesthetize the skin over each target destination with a 25ga needle. A 22 ga, 3.5 inch spinal needle was advanced to the location of the medial branch at the junction of the superior articular process and the transverse process at T9, 10, 11 using intermittent fluoroscopy in the AP view. Isovue 300M contrast 0.2ml was injected at each level outlining the medial borders for each level in the AP and lateral views. There was no evidence of vascular or intrathecal uptake. The above injectate was slowly injected at each target destination. The left T10-11 and T11-12 facet joints were visually identified with fluoroscopy. Lidocaine 1% was used to anesthetize the skin over each target destination with a 25ga needle. A 22 ga, 3.5 inch spinal needle was advanced to the location of the medial branch at the junction of the superior articular process and the transverse process at T9, 10, 11 using intermittent fluoroscopy in the AP view. Isovue 300M contrast 0.2ml was injected at each level outlining the medial borders for each level in the AP and lateral views. There was no evidence of vascular or intrathecal uptake. The above injectate was slowly injected at each target destination. At the end of the procedure the needles were withdrawn and Band-Aids were applied for a dressing. At the end of the procedure the needles were withdrawn and Band-Aids were applied for a dressing. Post Procedure: Patient was taken to the recovery and monitored. The patient was provided a Pain Log to continue to record the patient's response to the target- specific procedure prior to the patient's follow-up visit with the referring physician. Patient was stable upon discharge. Detailed post procedure instructions were provided. Patient was asked to call in the event of worsening pain, fever, weakness, numbness or bladder or bowel incontinence. Postoperatively, today patient demonstrates the following changes with h yperextension and with tenderness over the suspected joint(s). Provacative testing using the Jiang's facet loading test Right side Left side Directly before the block ?VAS (0-10) = 7/10 VAS (0-10) = 7/10 5 minutes after the block VAS (0-10) = 5/10 VAS (0-10) = 5/10 Percentage relief obtained with this diagnostic block 29% 29% Any improved physical functioning directly after the blocks? ROM Based on the medial branches blocked today, if the patient meets insurance criteria for radiofrequency, the treatment should result in the denervation of the bilateral T10-11 and T11-12 facet joint nerves. We would expect to denervate a total of 4 facets during the radiofrequency ablation.
== END 2023-04-25 13:50 | disposition home or self-care (01) ==
LOC: RAD 12:23
PROVIDERS: PCP Family Medicine; Referring Provider Anesthesiology; Visit Provider Anesthesiology
DX: M47.814 Spondylosis without myelopathy or radiculopathy, thoracic region (principal)
CPT/HCPCS: 64490; 64491; 99152; J2250

== ENCOUNTER 2023-06-20 10:23 | Outpatient (CLI) | payer MEDICARE, BC, SELFPAY ==
[2023-06-20] VITALS (9 sets, daily range): BP systolic 129–175; BP diastolic 62–82; PULSE 50–71; RESP 12–18; TEMP 36.2; O2SAT 97–98
--- NOTE | 2023-06-20 10:27 | DI.RAD.S_ITS ---
PROCEDURE: PAIN C/T FACET INJ/BLK 1ST MIMI INDICATIONS: THORACIC SPONDYLOSIS COMPARISON: [facility], , PAIN C/T FACET INJ/BLK 1ST MIMI, 04/25/2023, 13:01. FINDINGS: Fluoroscopic spot filming was performed to verify placement of spinal needles on both sides at the T9, T10, and T11 levels, as labeled on the films. Appropriate location of the needle tips was confirmed by injection of iodinated contrast. IMPRESSION: Intraprocedural examination demonstrating appropriate positions of the needles. Dictated by: Eren Wong M.D. on 06/20/2023 at 17:24 Approved by: Eren Wong M.D. on 06/20/2023 at 17:25
[2023-06-20] MEDS: MIDAZOLAM 2 MG/2 ML VIAL 1 MG IV (11:14)
[2023-06-20] MEDS: LIDOCAINE 2% INJ MDV 20ML 5 ML INJ (11:19)
[2023-06-20] MEDS: IOPAMIDOL 15 ML VIAL 3 ML INJ (11:20)
--- NOTE | 2023-06-20 11:49 | P.PCN_ITS ---
Date/Time/Diagnoses Date of procedure: 06/20/23 Time of procedure: 11:00 Procedure Notes Physician: Rajan Francois Total Fluoroscopy time (seconds): 34 Total sedation minutes: 28 Procedure in detail & Post-procedure care: Bilateral T9-10 and T10-11 Medial Branch Blocks Indications: Michael is presenting for treatment of thoracic spondylosis with thoracic back pain. Preoperative diagnosis: Thoracic spondylosis Postoperative diagnosis: Same Pre-procedure History: Patient demonstrates today moderate to severe non- radicular back pain without neurologic deficit aggravated by hyperextension yes Patient today has tenderness over the suspected joint(s) yes History of post-traumatic injury? yes Hypertrophic arthropathy yes Back pain associated with suspected motion segment instability, hypermobility or pseudoarthrosis no Pre-testing pain score (VAS): 5/10 Focused Examination: Ax3 Mood and affect are normal Vital Signs: VSS ASA: 2 Consent: Following review of allergies and potential side effects/complications, including, but not necessarily limited to, infection, allergic reaction, local tissue breakdown, stroke, temporary or permanent nerve injury, paralysis, and possible , the patient indicated that they understood and agreed to proceed.? An informed consent document was signed by the patient, witnessed by a nurse and placed in the patient's chart.? Additionally, other treatment options including medications and physical therapy were reviewed with the patient. All questions were answered. Site was then marked. Anesthesia: After review of previous anesthetic history and IV conscious sedation, the patient was deemed safe to proceed with today's procedure with IV conscious sedation. IV sedation was accomplished with midazolam 1 mg administered by the RN after order by Dr. Francois. Sedation was titrated to patient comfort during the course of the procedure. Patient remained responsive to all verbal commands. Position: Prone Monitoring: NIBP, Pulse oximetry, 3 lead EKG Needle used: 25 ga 1.5 in hypodermic needle Contrast: Isovue 300M Injectate: 2% Lidocaine 1 mL per site Procedure: The patient was brought into the procedure room and positioned into the prone position. Skin was prepped with a Chloraprep solution, allowed to air dry, and then draped in sterile fashion.? The right T9-10 and T10-11 facet joints were visually identified with fluoroscopy. Lidocaine 1% was used to anesthetize the skin over each target destination with a 25ga needle. A 25 ga, 1.5 in hypodermic needle was advanced to the location of the medial branch at T9, 10, 11 using intermittent fluoroscopy in the AP view. Isovue 300M contrast 0.2ml was injected at each level outlining the medial borders for each level in the AP and lateral views. There was no evidence of vascular or intrathecal uptake. The above injectate was slowly injected at each target destination. The left T9-10 and T10-11 facet joints were visually identified with fluoroscopy. Lidocaine 1% was used to anesthetize the skin over each target destination with a 25ga needle. A 25 ga, 1.5 in hypodermic needle was advanced to the location of the medial branch at T9, 10, 11 using intermittent fluoroscopy in the AP view. Isovue 300M contrast 0.2ml was injected at each level outlining the medial borders for each level in the AP and lateral views. There was no evidence of vascular or intrathecal uptake. The above injectate was slowly injected at each target destination. At the end of the procedure the needles were withdrawn and Band-Aids were applied for a dressing. At the end of the procedure the needles were withdrawn and Band-Aids were applied for a dress ing. Post Procedure: Patient was taken to the recovery and monitored. The patient was provided a Pain Log to continue to record the patient's response to the target- specific procedure prior to the patient's follow-up visit with the referring physician. Patient was stable upon discharge. Detailed post procedure instructions were provided. Patient was asked to call in the event of worsening pain, fever, weakness, numbness or bladder or bowel incontinence. Postoperatively, today patient demonstrates the following changes with hyperextension and with tenderness over the suspected joint(s). Provacative testing using the Jiang's facet loading test Right side Left side Directly before the block ?VAS (0-10) = 5/10 VAS (0-10) = 5/10 5 minutes after the block VAS (0-10) = 0/10 VAS (0-10) = 0/10 Percentage relief obtained with this diagnostic block 100% 100% Any improved physical functioning directly after the blocks? Range of m otion Based on the medial branches blocked today, if the patient meets insurance criteria for radiofrequency, the treatment should result in the denervation of the bilateral T9-10 and T10-11 facet joint nerves. We would expect to denervate a total of 4 facets during the radiofrequency ablation.
== END 2023-06-20 11:54 | disposition home or self-care (01) ==
PROVIDERS: PCP Family Medicine; Referring Provider Anesthesiology; Visit Provider Anesthesiology
DX: M47.815 Spondylosis without myelopathy or radiculopathy, thoracolumbar region (principal)
CPT/HCPCS: 64490; 64491; 99152; 99153; J2250

== ENCOUNTER 2023-07-30 09:51 | Outpatient (CLI) | payer MEDICARE, BC, SELFPAY ==
[2023-07-30] VITALS (10 sets, daily range): BP systolic 155–181; BP diastolic 67–83; PULSE 52–59; RESP 12–18; TEMP 36.6; O2SAT 94–98
--- NOTE | 2023-07-30 09:55 | DI.RAD.S_ITS ---
PROCEDURE: PAIN C/T MEDIAL N RFA BILAT INDICATIONS: SPONDYLOSIS COMPARISON: None. FINDINGS: Fluoroscopic spot filming was performed to verify placement of spinal needles at the T9, T10 and T11 level(s), as labeled on the films. Appropriate location(s) of the needle tip(s) was confirmed by injection of iodinated contrast. IMPRESSION: Fluoroscopic guidance Approved by: Diomedes Machado M.D. on 07/30/2023 at 14:50
[2023-07-30] MEDS: MIDAZOLAM 2 MG/2 ML VIAL 1 MG IV (10:43)
[2023-07-30] MEDS: DEXAMETHASONE 10 MG/ML VIAL INJ (10:48)
[2023-07-30] MEDS: BUPIVACAINE 0.5% (PF) 10 ML VIAL 5 ML INJ (10:48)
[2023-07-30] MEDS: LIDOCAINE 2% INJ SDV 5ML 10 ML INJ (10:49)
--- NOTE | 2023-07-30 11:59 | P.PCN_ITS ---
Date/Time/Diagnoses Date of procedure: 07/30/23 Time of procedure: 10:30 Procedure Notes Physician: Rajan Francois Total Fluoroscopy time (seconds): 24 Total sedation minutes: 34 Procedure in detail & Post-procedure care: Bilateral T8, 9, 10 (T9-10 and T10-11) Thoracic Medial Branch Radio Frequency Ablation Indications: Michael presents for treatment of thoracic spondylosis with back pain. Preoperative diagnosis: Thoracic spondylosis Postoperative diagnosis: Same Focused Examination: Ax3 Mood and affect are normal Vital Signs: VSS ASA: 2 Consent: Following review of allergies and potential side effects/complications, including, but not necessarily limited to, infection, allergic reaction, local tissue breakdown, stroke, temporary or permanent nerve injury, paralysis, and possible , the patient indicated that they understood and agreed to proceed.? An informed consent document was signed by the patient, witnessed by a nurse and placed in the patient's chart.? Additionally, other treatment options including medications and physical therapy were reviewed with the patient. All questions were answered. Site was then marked. Position: Prone Monitoring: NIBP, Pulse oximetry, 3 lead EKG Needle used: 20 guage, 100 mm, 10 mm active tip Anesthesia: Local with oral and IV sedation. After review of previous anesthetic history and IV conscious sedation, the patient was deemed safe to proceed with today's procedure with IV conscious sedation. IV sedation was accomplished with midazolam 1 mg administered by the RN after order by Dr. Francois. Sedation was titrated to patient comfort during the course of the procedure. Patient remained responsive to all verbal commands. Procedure: The patient was brought into the procedure room and positioned into the prone position. Skin was prepped with a Chloraprep solution, allowed to air dry, and then draped in sterile fashion.? The right T9-10 and T10-11 facet joints were visually identified with fluoroscopy. Lidocaine 1% was used to anesthetize the skin over each target destination with a 25ga needle. A 20 ga, 100 mm RFA needle with a 10 mm active tip was advanced to the location of the medial branch on the right T9, 10, 11 transverse process using intermittent fluoroscopy in the AP view with 5? contralateral oblique tilt and magnification x2. AP and lateral radiographs were taken to confirm proper needle placement. No paresthesias were noted. The stylet was removed and the radiofrequency probe was inserted through the cannula. Each level was individually tested.? Motor stimulation up to 2V elicited multifidus twitching. There was no motor stimulation of the chest. After negative aspiration, 1ml of 2% lidocaine was injected at each of the levels and radiofrequency denervation carried out using 80 degrees Celsius for 90 seconds. The needles were then rotated 90 degrees and a second ablation was performed at 80 degrees Celsius for 90 seconds. Next, the left T9-10 and T10-11 facet joints were visually identified with fluoroscopy. Lidocaine 1% was used to anesthetize the skin over each target destination with a 25ga needle. A 20 ga, 100 mm RFA needle with a 10 mm active tip was advanced to the location of the medial branch on the left T9, 10, 11 transverse process using intermittent fluoroscopy in the AP view with 5? contra lateral oblique tilt and magnification x2. AP and lateral radiographs were taken to confirm proper needle placement. No paresthesias were noted. The stylet was removed and the radiofrequency probe was inserted through the cannula. Each level was individually tested.? Motor stimulation up to 2V elicited multifidus twitching. There was no motor stimulation of the chest. After negative aspiration, 1ml of 2% lidocaine was injected at each of the levels and radiofrequency denervation carried out using 80 degrees Celsius for 90 seconds. The needles were then rotated 90 degrees and a second ablation was performed at 80 degrees Celsius for 90 seconds. After ablation, a mixture of 10 mg dexamethasone with 0.5% bupivacaine 5 mL was injected in equal amounts among the sites (1 mL per site). At the end of the procedure the needles were withdrawn and Band-Aids were applied for a dressing. This procedure is expected to denervate the 4 facet joints. Post Procedure: Patient was taken to the recovery and monitored. The patient was provided a Pain Log to continue to record the patient's response to the target- specific procedure prior to the patient's follow-up visit with the referring physician. Patient was stable upon discharge. Detailed post procedure instructions were provided. Patient was asked to call in the event of worsening pain, fever, weakness, numbness or bladder or bowel incontinence. Complications: None
== END 2023-07-30 11:27 | disposition home or self-care (01) ==
PROVIDERS: PCP Family Medicine; Referring Provider Anesthesiology; Visit Provider Anesthesiology
DX: M47.814 Spondylosis without myelopathy or radiculopathy, thoracic region (principal)
CPT/HCPCS: 64633; 64634; 99152; 99153; J1100; J2250

== ENCOUNTER → 2023-09-19 08:29 | Outpatient (CLI) | payer MEDICARE, BC, SELFPAY ==
[2023-09-19 08:58] LABS: Add Manual Diff / Slide Review NO; Basophils Absolute Auto 100 /uL (0-100); Basophils Percent Auto 0.7 % (0-2); Eosinophils Absolute Auto 400 /uL (0-450); Hematocrit 43.3 % (41-53); Hemoglobin 14.8 g/dL (13.5-17.5); Lymphocytes Absolute Auto 1000 /uL (1100-4500); Lymphocytes Percent Auto 11.9 % (25-40); Mean Corpuscular HGB Conc 34.3 % (30-36); Mean Corpuscular Hemoglobin 30.9 PG (26-34); Monocytes Absolute Auto 700 /uL (0-900); Monocytes Percent Auto 8.8 % (3-14); Neutrophils Absolute Auto 6200 /uL (1500-7000); Neutrophils Percent Auto 73.6 % (50-75); Platelet Count 181 X10^3/uL (150-400); Red Cell Distribution Width 13.5 % (11.6-14.8); White Blood Cell Count 8.4 X10^3/uL (4.5-11.0)
[2023-09-19 09:15] LABS: Alanine Aminotransferase 25 IU/L (<50); Albumin 4.1 g/dL (3.5-5.0); Albumin Globulin Ratio 1.5 (1.0-2.8); Alkaline Phosphatase 90 U/L (38-126); Aspartate Aminotransferase 33 IU/L (17-59); Bilirubin Total 0.7 mg/dL (0.2-1.3); Blood Urea Nitrogen 23 mg/dL (9-20); Calcium 9.2 mg/dL (8.4-10.2); Carbon Dioxide 32 mmol/L (22-32); Chloride 99 mmol/L (98-107); Cholesterol 107 mg/dL (140-199); Estimated Glomerular Filt Rate > 60 mL/min (>60); Globulin 2.7 g/dL (1.7-4.1); Glucose 98 mg/dL (80-110); HDL Cholesterol 52 mg/dL (40-60); HEMOLYSIS < 15 (0-50); LDL Cholesterol Calculated 41 mg/dL (<100); Potassium 3.3 mmol/L (3.4-5.1); Sodium 137 mmol/L (137-145); Total Protein 6.8 g/dL (6.3-8.2); Triglycerides 69 mg/dL (35-150)
[2023-09-19 09:43] LABS: Prostate Specific Antigen Scrn 4.02 ng/mL (0.1-4.0)
[2023-09-25 06:42] LABS: Percent Free Testosterone 2.16 % (1.50-4.20); Testosterone Free 14.16 ng/dL (5.00-21.00); Testosterone Total 655.7 ng/dL (264.0-916.0)
== END ==
PROVIDERS: PCP Family Medicine; Referring Provider Family Medicine; Visit Provider Family Medicine
DX: R79.89 Other specified abnormal findings of blood chemistry (principal); Z12.5 Encounter for screening for malignant neoplasm of prostate; N40.1 Benign prostatic hyperplasia with lower urinary tract symptoms; R35.1 Nocturia; E78.00 Pure hypercholesterolemia, unspecified; N52.9 Male erectile dysfunction, unspecified; R39.9 Unspecified symptoms and signs involving the genitourinary system
CPT/HCPCS: 36415; 80053; 80061; 84402; 84403; 85025; G0103

== ENCOUNTER → 2023-11-12 13:23 | Outpatient (CLI) | payer MEDICARE, BC, SELFPAY ==
--- NOTE | 2023-11-12 13:24 | DI.RAD.S_ITS ---
PROCEDURE: XR THORACIC SPINE 3V INDICATIONS: Back pain, compression fxs TECHNIQUE: 3 views of the thoracic spine were acquired. COMPARISON: [facility], MR, MR THORACIC SPINE WO/W CON, 04/14/2023, 15:22. [facility], CR, XR THORACIC SPINE 3V, 01/15/2023, 11:56. [facility], CR, XR THORACIC SPINE 3V, 01/16/2019, 14:32. FINDINGS: Bones: Multiple moderate to severe compression deformities are seen in the region of the lumbosacral junction, which appear to have progressed when compared to the radiographs from 01/15/2023. When compared to the MRI from 04/14/2023, there appears to be increased loss of vertebral body height at L1. Chronic T7 compression fracture does not appear significantly changed. Mild levoconvex curvature of the thoracic spine. Soft tissues: No paravertebral stripe thickening. Sternotomy wires are present. IMPRESSION: 1. No significant change in moderate to severe compression fractures at T11 and T12. 2. Increased loss of vertebral body height is seen at L1 when compared to the MRI from 04/14/2023. 3. Moderate T7 compression fracture appears unchanged. Approved by: Williams Garcia M.D. on 11/12/2023 at 16:35
--- NOTE | 2023-11-12 13:24 | DI.RAD.S_ITS ---
PROCEDURE: XR LUMBAR SPINE MIN 4V INDICATIONS: Back pain, compression fxs TECHNIQUE: 5 views of the lumbar spine were acquired, including bilateral oblique views. COMPARISON: [facility], MR, MR LUMBAR SPINE WO/W CON, 04/14/2023, 15:22. FINDINGS: Transitional spinal anatomy is again seen with 6 [id number] lumbar type vertebral bodies. For the purposes of this report, and these vertebral bodies will be designated as L1 through L6 time in keeping with the numbering system used on the prior MRI from 04/16/2023. Bones: Moderate to severe compression fractures are seen at T11, T12, and L1, which appear progressed at the L1 level when compared to the MRI from 04/14/2023. Mild S-shaped curvature of the thoracolumbar spine. Multilevel degenerative disc disease and facet hypertrophy. Generalized osteopenia. Soft tissues: Overlying bowel gas pattern is normal. No suspicious soft tissue calcifications. Bilateral iliac stent grafts are noted. Sternotomy wires are partially imaged. The lower most sternotomy wire is fractured in multiple locations. Surgical clips are seen projecting over the upper abdomen. Oblique images: No pars defects. IMPRESSION: 1. Transitional spinal anatomy. 2. Moderate severe L1 vertebral body compression fracture demonstrates increased loss of height when compared to the MRI from 04/14/2023. At T11 and T12 compression fractures do not appear significantly changed. 3. Multilevel spondylosis. Approved by: Williams Garcia M.D. on 11/12/2023 at 16:40
== END ==
PROVIDERS: PCP Family Medicine; Referring Provider Anesthesiology; Visit Provider Anesthesiology
DX: S22.000A Wedge compression fracture of unspecified thoracic vertebra, initial encounter for closed fracture (principal); M47.816 Spondylosis without myelopathy or radiculopathy, lumbar region; M47.815 Spondylosis without myelopathy or radiculopathy, thoracolumbar region; M79.18 Myalgia, other site; M54.6 Pain in thoracic spine; M54.50 Low back pain, unspecified; G89.29 Other chronic pain
CPT/HCPCS: 20553; 72072; 72110; 76942; 99213

== ENCOUNTER → 2023-11-29 12:41 | Outpatient (CLI) | payer MEDICARE, BC, SELFPAY ==
--- NOTE | 2023-11-29 12:46 | DI.RAD.S_ITS ---
Bone Density Report Name: YANCI STEEN Age: 83 Sex: Male Ethnicity: White Date of : 1940 Indication: senile osteoporosis; monitoring treatment; prior fracture; Referring Provider: ASHKAN FAIRBANKS Study: Bone densitometry was performed. Exam Date: November 29, 2023 Accession number: [id number] Bone Density: Region BMD T-score Z-score Classification AP Spine(L1-L4) 0.972 -0.7 0.2 Normal Femoral Neck (Left) 0.520 -3.0 -1.3 Osteoporosis Total Hip (Left) 0.593 -2.9 -1.6 Osteoporosis Femoral Neck (Right) 0.543 -2.8 -1.1 Osteoporosis Total Hip (Right) 0.620 -2.6 -1.5 Osteoporosis Total Hip Mean 0.606 -2.8 -1.6 Osteoporosis World Health Organization criteria for BMD impression classify patients as: Normal (T-score at or above -1.0), Osteopenia (T-score between -1.0 and -2.5), or Osteoporosis (T-score at or below -2.5). 10-year Fracture Risk: FRAX not reported because: Some T-score for Spine Total or Hip Total or Femoral Neck at or below -2.5 Prior hip or vertebral fracture Treated for osteoporosis Previous Exams: -- Region Exam Age BMD T-score BMD Change BMD Change Date g/cm2 vs Baseline vs Previous -- AP Spine (L1-L4) 11/29/2023 83 0.972 -0.7 0.027 (2.9%)# 0.208 (27.3%)# 02/06/2023 82 0.764 -2.6 -0.181 (-19.1%)# -0.124 (-13.9%)# 11/11/2019 79 0.888 -1.4 -0.057 (-6.0%)* -0.057 (-6.0%)* 04/23/2015 75 0.945 -0.9 Total Hip(Left) 11/29/2023 83 0.593 -2.9 -0.066 (-10.1%)# -0.001 (-0.1%)# 02/06/2023 82 0.594 -2.9 -0.066 (-10.0%)# -0.022 (-3.6%)# 11/11/2019 79 0.616 -2.7 -0.044 (-6.6%)* -0.044 (-6.6%)* 04/23/2015 75 0.659 -2.3 Total Hip(Right) 11/29/2023 83 0.620 -2.6 -0.085 (-12.1%)# 0.007 (1.1%)# 02/06/2023 82 0.613 -2.7 -0.092 (-13.1%)# -0.047 (-7.1%)# 11/11/2019 79 0.659 -2.3 -0.046 (-6.5%)* -0.046 (-6.5%)* 04/23/2015 75 0.705 -1.9 -- *Denotes significance at 95% confidence level, LSC for AP Spine = 0.022 g/cm2, LSC for Total Hip = 0.027 g/cm2 # Denotes dissimilar scan types or analysis methods Impression: The patient has established osteoporosis, based on the Left Femoral Neck T-score and the existence of a prior fracture. The patient has risk factors, including: previous fracture. No significant bone loss was observed. Discussion: PATIENT UNDER TREATMENT WITH NO SIGNIFICANT BMD LOSS SINCE LAST EXAM. In an untreated patient, BMD typically declines with age. A lack of decline or gain is usually a sign that treatment is efficacious and fracture risk is reduced. It is important to ask patients whether they are taking their medications and to encourage continued and appropriate compliance with their osteoporosis therapies to reduce fracture risk. It is also important to review their risk factors and encourage appropriate calcium and vitamin D intakes, exercise, fall prevention and other lifestyle measures. Follow-Up: Consider repeating this study in 2 years to reassess this patient's status, or sooner if there is some new clinical indication. Reported by: JASPER GOMEZ M.D. on 11/29/2023 2:39:00 PM.
== END ==
LOC: RAD 12:45
PROVIDERS: PCP Family Medicine; Referring Provider Family Medicine; Visit Provider Family Medicine
DX: M81.0 Age-related osteoporosis without current pathological fracture; Z87.311 Personal history of (healed) other pathological fracture; Z79.83 Long term (current) use of bisphosphonates
CPT/HCPCS: 77080

== ENCOUNTER → 2024-01-04 13:48 | Outpatient (CLI) | payer MEDICARE, BC, SELFPAY ==
[2024-01-04 16:34] LABS: BUN Creatinine Ratio 20.6 (6-22); Blood Urea Nitrogen 29 mg/dL (9-20); Calcium 9.5 mg/dL (8.4-10.2); Carbon Dioxide 32 mmol/L (22-32); Chloride 103 mmol/L (98-107); Estimated Glomerular Filt Rate 49 mL/min (>60); Glucose 66 mg/dL (80-110); HEMOLYSIS < 15 (0-50); Magnesium 2.3 mg/dL (1.6-2.3); Sodium 139 mmol/L (137-145)
== END ==
LOC: LAB 13:50
PROVIDERS: PCP Family Medicine; Referring Provider Internal Medicine Cardiovascular Disease; Visit Provider Internal Medicine Cardiovascular Disease
DX: E87.6 Hypokalemia (principal); T50.2X5A Adverse effect of carbonic-anhydrase inhibitors, benzothiadiazides and other diuretics, initial encounter; I10 Essential (primary) hypertension; I25.10 Atherosclerotic heart disease of native coronary artery without angina pectoris; I73.9 Peripheral vascular disease, unspecified; R25.2 Cramp and spasm
CPT/HCPCS: 36415; 80048; 83735

== ENCOUNTER → 2024-04-25 07:30 | Outpatient (CLI) | payer MEDICARE, BC, SELFPAY ==
[2024-04-25 08:58] LABS: Hematocrit 43.5 % (41-53); Hemoglobin 14.8 g/dL (13.5-17.5)
[2024-04-25 09:16] LABS: Creatinine Urine Random 99.25 mg/dL; Protein (Total) Urine Random 10 mg/dL (0-12)
[2024-04-25 09:33] LABS: Alanine Aminotransferase 19 IU/L (<50); Albumin 3.9 g/dL (3.5-5.0); Albumin Globulin Ratio 1.7 (1.0-2.8); Alkaline Phosphatase 73 U/L (38-126); Aspartate Aminotransferase 27 IU/L (17-59); BUN Creatinine Ratio 21.4 (6-22); Bilirubin Total 0.6 mg/dL (0.2-1.3); Blood Urea Nitrogen 28 mg/dL (9-20); Calcium 8.5 mg/dL (8.4-10.2); Carbon Dioxide 28 mmol/L (22-32); Chloride 102 mmol/L (98-107); Cholesterol 87 mg/dL (140-199); Estimated Glomerular Filt Rate 53 mL/min (>60); Globulin 2.3 g/dL (1.7-4.1); Glucose 90 mg/dL (80-110); HDL Cholesterol 41 mg/dL (40-60); HEMOLYSIS < 15 (0-50); LDL Cholesterol Calculated 33 mg/dL (<100); Potassium 4.2 mmol/L (3.4-5.1); Sodium 137 mmol/L (137-145); Total Protein 6.2 g/dL (6.3-8.2); Triglycerides 63 mg/dL (35-150)
== END ==
LOC: LAB 07:34
PROVIDERS: PCP Family Medicine; Referring Provider Student in an Organized Health Care Education/Training Program; Visit Provider Internal Medicine Cardiovascular Disease
DX: E78.5 Hyperlipidemia, unspecified (principal); N05.9 Unspecified nephritic syndrome with unspecified morphologic changes; R80.9 Proteinuria, unspecified; D64.9 Anemia, unspecified; R25.2 Cramp and spasm; I10 Essential (primary) hypertension
CPT/HCPCS: 36415; 80053; 80061; 82570; 84156; 85014; 85018

== ENCOUNTER 2024-06-16 07:48 | Day surgery (SDC) | payer MEDICARE, BC, SELFPAY ==
[2024-06-13 09:32] VITALS: BMI 27.3
[2024-06-16] VITALS (14 sets, daily range): BP systolic 98–158; BP diastolic 57–89; PULSE 54–80; RESP 13–20; TEMP 35.7–36.6; O2SAT 92–98; BMI 26.1
--- NOTE | 2024-06-16 | PATH_ITS ---
[facility] Accession Number: [id number] No. of containers..01 Tissue . 01 Material submitted: . prostate - PROSTATE TISSUE . 01 Diagnosis: PROSTATE (1 GRAM), TRANSURETHRAL RESECTION: Prostatic adenocarcinoma (conventional/acinar type). Batson grade 3+5=8 (percentage of pattern 5: less than 5%; Pattern 4 : also identified and is approximately 45%, cribriform pattern 4 present). Grade group = 4. Percentage of prostatic tissue involved by tumor: 31-40%; multiple chips involved; maximum linear dimension involving one chip is 9 mm. Seminal vesicle invasion: Not identified. Perineural invasion: Identified. Periprostatic fat invasion: Not identified. Intraductal carcinoma: Not identified. Additional pathologic findings: Nodular and stromal hyperplasia. Pathologic stage: pT1b. [facility] 06/18/2024 1241 Local . 01 Comment: This case has also been reviewed by Dr. Ginny Hewitt, who concurs with the diagnosis. Findings were called to 's RN, Ms Dash on 06/18/2024 at 1240 hours by . . 01 Electronically signed: . Marci Valdez MD, Pathologist NPI- [id number] . 01 Gross description: . Received in formalin with two patient identifiers and prostate tissue, are multiple yellow-patel, rubbery soft tissue fragments weighing 1 gram and aggregating to 2.7 x 1.9 x 0.4 cm. Submitted entirely in A1. ([id number]) /MRV 06/17/2024 1458 Local . 01 Pathologist provided ICD-10: C61 . 01 CPT . 686460 Specimen Comment: A courtesy copy of this report has been sent to [facility] Pathology Performed at: 01 [facility] [place] [address] [address], [place], [place] [id number] MD Kelby Gonsales MD Phone: [phone]
[2024-06-16] MEDS: LACTATED RINGERS 1,000 ML 42 ML IV (08:18)
[2024-06-16] MEDS: ACETAMINOPHEN 325 MG TABLET 975 MG PO (08:24)
--- NOTE | 2024-06-16 09:17 | P.HP_ITS ---
History of Present Illness History of Present Illness Chief complaint: INPT Narrative: 84 y/o M presents to OR for a planned cystoscopy and transurethral resection of his prostate. Briefly, he has dealt with BPH and LUTS for quite some time now. He was previously managed with alpha blockers, however, had intolerable side effects and had to stop these medications. Currently, his symptoms are not well managed with Tadalafil 5mg daily. Of note, he admits to a TURP in 1968 for what he describes was fibrous overgrowth of tissue. Over the past few months, he admits to a severely weakened urinary stream, urinary hesitancy that can last up to 5 minutes and bothersome nocturia. He feels that anytime he travels, he holds everyone up with his urinary habits and would like them surgically corrected. He previously underwent a cystoscopy and TRUS with Dr. Govea a few months ago that was remarkable for regrowth of his right lateral prostatic lobe, no intravesical median lobe and a 17g prostate. Most recent PSA: 4.23 (09/29). FOR[facility]LY [facility] Medical History Paroxysmal A-fib CKD (chronic kidney disease) Kyphosis Renal insufficiency Carotid artery stenosis AAA (abdominal aortic aneurysm) without rupture Low BUN Rosacea Bladder outlet obstruction BPH w urinary obs/LUTS Compression fx, lumbar spine Low back pain Myofascial pain Anxiety Thoracic back pain Spondylosis without myelopathy or radiculopathy, thoracolumbar region HTN (hypertension) Thoracic radiculopathy Compression fx, thoracic spine Constipation Acute lumbar back pain Acute bilateral thoracic back pain Actinic keratoses Low testosterone in male Chronic left shoulder pain Bilateral kidney stones Factor V Leiden mutation (Unknown) Erectile dysfunction (Unknown) GERD (gastroesophageal reflux disease) (Unknown) BPH (benign prostatic hyperplasia) (Unknown) Hyperlipemia (Unknown) Osteoporosis (Unknown) Hypogonadism (Unknown) Coronary artery disease (Unknown) Skin cancer (Unknown) Surgical History History of penile implant History of colonoscopy Status post insertion of iliac artery stent (~09/2015) History of kidney stones (1974) Hx of transurethral resection of prostate (~1966) Hx of coronary artery bypass graft (Unknown) Family History Father No problems noted. Mother No problems noted. Brother Coronary artery disease Social History household members: spouse Smoking Status: Former smoker alcohol intake: current Meds Home Medications and Allergies Home Medications Medication Instructions Recorded Confirmed Type MULTIVITAMIN (One Daily 1 tab PO QDAY ##0 05/27/12 06/16/24 History Multivitamin) aspirin 81 mg tablet,delayed 81 mg PO QDAY ##0 12/08/16 06/13/24 History release esomeprazole magnesium 20 mg 10 mg PO DAILY 01/13/19 06/16/24 History capsule,delayed release (Nexium) doxycycline hyclate 20 mg tablet 10 mg PO BID 09/11/22 06/16/24 History ezetimibe 10 mg tablet 5 mg PO DAILY 09/11/22 06/16/24 History rosuvastatin 40 mg tablet (Crestor) 40 mg PO QDAY 09/11/22 06/16/24 History Disabled Parking Placard #1 ea 03/28/23 05/16/24 Rx magnesium oxide 400 mg (241.3 mg 400 mg PO BEDTIME 04/03/23 06/16/24 History magnesium) tablet forteo needles #90 ea 04/27/23 05/16/24 Rx potassium chloride 20 mEq 40 meq (2 x 20 mEq) PO DAILY #60 09/26/23 06/16/24 Rx tablet,extended release tabs losartan 50 mg tablet 50 mg PO DAILY 11/05/23 06/16/24 History testosterone See Rx Instructions .Route 03/07/24 06/16/24 Rx .COMPLEX #75 grams teriparatide 20 mcg/dose (600 20 mcg (0.08 mL) SUBCUT DAILY #2.4 04/08/24 06/16/24 Rx mcg/2.4 mL) subcutaneous pen mL injector (Forteo) tadalafil 5 mg tablet (Cialis) 5 mg PO QDAY #90 tabs 04/25/24 06/16/24 Rx amlodipine 5 mg tablet 10 mg PO DAILY 05/16/24 06/16/24 History pen needle, diabetic 31 gauge x #100 ea 06/03/24 Rx 3/16 (Sure Comfort Pen Needle) Allergies Allergy/AdvReac Type Severity Reaction Status Date / Time cat dander [CAT DANDER] Allergy Unknown Verified 06/16/24 08:45 clopidogrel [From Plavix] Allergy hives Verified 06/16/24 08:45 HAYFEVER Allergy Mild Uncoded 06/16/24 08:45 Review of Systems Review of Systems Narrative: CONSTITUTIONAL: Denies weight loss, fevers, chills. HEENT: Denies change in vision, hearing. RESP: Denies SOB, cough. CV: Denies palpations, CP. GI: Denies abodminal pain, nausea, vomiting, diarrhea. : Denies dysuria, hematuria, inability to void. MSK: Denies myalgia, joint pain. SKIN: Denies rash, pruritus. NEURO: Denies headache, syncope. PSYCH: Denies recent change in mood, anxiety, depression. Exam Vital Signs (past 8 hours): - 06/16/24 08:33 Temperature 97.9 F Pulse Rate 80 Respiratory Rate 17 Blood Pressure 156/89 H Pulse Oximetry 94 Oxygen Delivery Method Room Air Oxygen Delivery Method Room Air Narrative Exam Narrative: GEN: Alert and oriented X3. No acute distress. Well-nourished. EYES: PERRLA, EOMI. HENT: Moist mucus membranes, no scleral icterus, normal neck ROM. RESP: Unlabored breathing, equal rise and fall of chest bilaterally, no cyanosis appreciated. CV: No peripheral edema, unremarkable heart rate. ABD: Soft, non-tender, non-distended, no palpable masses. EXT: No edema, clubbing or cyanosis. SKIN: No rashes or lesions. NEURO: No focal neurologic deficits, CN II-XII grossly intact. PSYCH: Cooperative, appropriate mood and affect. Assessment & Plan Assessment and plan (1) BPH w urinary obs/LUTS: Status: Acute Plan: 84 y/o M w/ BPH and severely bothersome LUTS that are refractory to medical therapy. He is very adamant about having surgical intervention as he cannot tolerate his urinary symptoms any longer. Discussed treatment options to include continued observation, transurethral incision of the prostate and/or transurethral resection of the prostate. Discussed that I would either make small incisions in his bladder neck if that appears to be the problem, or would perform a more extensive TURP. Discussed in detail that I would not know that until the time of his surgery when I perform his cystoscopy. Discussed risks of the procedure to include pain, bleeding, infection, bladder neck contracture, urethral stricture development, urinary incontinence, erectile dysfunction, clot retention, urinary retention, injury to bladder and/or ureter, need for prolonged hospitalization. He indicated understanding and informed consent was obtained. Time-Based Coding :: [TOTAL MINUTES] spent with patient and on the chart (including review of chart, obtaining history, exam, reviewing outside data, placing orders, documenting exam and treatment plan, and counseling patient) on [DATE].
[2024-06-16] MEDS: CEFAZOLIN 2 GM/100 ML PREMIX 100 ML IV (09:25)
--- NOTE | 2024-06-16 09:45 | SUR.OPER ---
Lithotomy on padded OR bed, head on pillow, arms secured on padded arm boards at <90 degrees abduction. Legs secured in padded yellow fins stirrups.
--- NOTE | 2024-06-16 10:21 | PM.OP.1 ---
Procedure & Clinicians Procedure: Cystoscopy Transurethral resection of prostate Same procedure as scheduled: Yes Indications: 84 y/o M w/ BPH and severely bothersome LUTS that are refractory to medical therapy. He is very adamant about having surgical intervention as he cannot tolerate his urinary symptoms any longer. Discussed treatment options to include continued observation, transurethral incision of the prostate and/or transurethral resection of the prostate. Surgeon: Kirk De Paz Click Yes if Unassisted: Yes Anesthesia Type: General Operative Notes Findings: Prior TURP defect, regrowth of right prostatic lobe causing urethral obstruction Closure Type: not applicable Specimen(s): other (Prostate chips) Applied: catheter Estimated Blood Loss (mL): 20 Blood products transfused: none Procedure in detail: Patient was identified in the preoperative holding area and consent confirmed. He was then brought to the operating room where general anesthesia was induced. He was then placed in the low lithotomy position. He was then prepped and draped in the usual sterile fashion. A surgical timeout was conducted and all were in agreement. Access to the bladder was obtained via a 21Fr cystoscope. Complete cystoscopy was then performed using a 30 and 70 degree lens. Bilateral ureteral orifice were easily visualized and noted to be orthotopic in nature. He had grade 3 trabeculations throughout his bladder, no concerning masses or lesions were appreciated. The cystoscope was then removed and the 26Fr resectoscope with visual obturator was then advanced through his urethra and into his bladder. Of note, he was noted to have slight narrowing of his urethral meatus (not quite to the level of meatal stenosis). The working element with Gyrus loop was then assembled and passed through the resectoscope and into the bladder. He was noted to have a TURP defect within his prostatic urethra as well as regrowth of his right lateral prostatic lobe causing urethral obstruction. The aforementioned right lateral prostatic lobe was then resected down to the level of the prostatic capsule. All prostate specimens were then manually evacuated from the bladder using the resectoscope. Hemostasis was evaluated and noted to be excellent at case end. A 24Fr 3-way hematuria catheter was then inserted into his bladder, 40cc of sterile water was utilized for balloon insufflation. Continuous bladder irrigation was then initiated and it was noted to be clear. Anesthesia was reversed, he was extubated in the OR and transferred to the PACU in stable condition for recovery. Complications: none Post-operative Condition: stable Disposition: Acute Care Plan for aftercare: Discharge from PACU. Will observe overnight and have continuous bladder irrigation. Will re-evaluate in the AM and either discharge home with a catheter and return in a few days for a voiding trial or perform a voiding trial on the morning of 17 Jun 2024.
[2024-06-16] MEDS: SODIUM CHLORIDE 0.9% 1,000 ML 125 ML IV ×2 (11:41→20:08)
[2024-06-16 15:05] LABS: Hematocrit 43.4 % (41-53); Hemoglobin 14.4 g/dL (13.5-17.5); Mean Corpuscular HGB Conc 33.1 % (30-36); Mean Corpuscular Hemoglobin 30.2 PG (26-34); Platelet Count 139 X10^3/uL (150-400); Red Blood Cell Count 4.76 X10^6/uL (4.5-5.9); Red Cell Distribution Width 13.9 % (11.6-14.8); White Blood Cell Count 6.5 X10^3/uL (4.5-11.0)
[2024-06-16] MEDS: ACETAMINOPHEN 325 MG TABLET 650 MG PO ×2 (16:35→20:35)
[2024-06-16] MEDS: ATORVASTATIN 20 MG TABLET 80 MG PO (20:36)
[2024-06-17] MEDS: SODIUM CHLORIDE 0.9% 1,000 ML 125 ML IV (03:57)
[2024-06-17] MEDS: PANTOPRAZOLE DR 20 MG TABLET PO (06:06)
[2024-06-17] MEDS: ACETAMINOPHEN 325 MG TABLET 650 MG PO (08:00)
[2024-06-17 08:14] VITALS: BP 142/60; PULSE 61; RESP 16; TEMP 36.4; O2SAT 96
[2024-06-17] MEDS: AMLODIPINE 5 MG TABLET 10 MG PO (09:11)
[2024-06-17] MEDS: MULTIVITAMIN 1 TABLET 1 TAB PO (09:11)
--- NOTE | 2024-06-17 09:20 | PM.PN.1 ---
Subjective Subjective Date Patient Seen: 06/17/24 Time Patient Seen: 07:30 Interval history: 84 y/o M w/ BPH and severely bothersome LUTS that are refractory to medical therapy. He is now POD 1 s/p an uncomplicated TURP. His pain has remained relatively well controlled. He has tolerated a regular diet without nausea or vomiting. His CBI was capped this morning and he did several laps in the hallway with his urine remaining light red without significant clot burden. He is eager to have his catheter removed. Exam Vital Signs (past 8 hours): - 06/17/24 08:14 Temperature 97.6 F Pulse Rate 61 Respiratory Rate 16 Blood Pressure 142/60 H Pulse Oximetry 96 Oxygen Flow Rate 0 Oxygen Delivery Method Room Air Oxygen Flow Rate 0 Narrative Exam Narrative: GEN: Alert and oriented X3. No acute distress. Well-nourished. EYES: PERRLA, EOMI. HENT: Moist mucus membranes, no scleral icterus, normal neck ROM. RESP: Unlabored breathing, equal rise and fall of chest bilaterally, no cyanosis appreciated. CV: No peripheral edema, unremarkable heart rate. ABD: Soft, non-tender, non-distended, no palpable masses. : Catheter secured and draining light red urine without clots. EXT: No edema, clubbing or cyanosis. SKIN: No rashes or lesions. NEURO: No focal neurologic deficits, CN II-XII grossly intact. PSYCH: Cooperative, appropriate mood and affect. Objective Labs 06/16/24 14:55 06/17/24 08:30 Labs: Laboratory Results - last 24 hr 06/16/24 14:55 WBC 6.5 RBC 4.76 Hgb 14.4 Hct 43.4 MCV 91.0 MCH 30.2 MCHC 33.1 RDW 13.9 Plt Count 139 L PFSH Medical History Paroxysmal A-fib CKD (chronic kidney disease) Kyphosis Renal insufficiency Carotid artery stenosis AAA (abdominal aortic aneurysm) without rupture Low BUN Rosacea Bladder outlet obstruction BPH w urinary obs/LUTS Compression fx, lumbar spine Low back pain Myofascial pain Anxiety Thoracic back pain Spondylosis without myelopathy or radiculopathy, thoracolumbar region HTN (hypertension) Thoracic radiculopathy Compression fx, thoracic spine Constipation Acute lumbar back pain Acute bilateral thoracic back pain Actinic keratoses Low testosterone in male Chronic left shoulder pain Bilateral kidney stones Factor V Leiden mutation (Unknown) Erectile dysfunction (Unknown) GERD (gastroesophageal reflux disease) (Unknown) BPH (benign prostatic hyperplasia) (Unknown) Hyperlipemia (Unknown) Osteoporosis (Unknown) Hypogonadism (Unknown) Coronary artery disease (Unknown) Skin cancer (Unknown) Surgical History History of penile implant History of colonoscopy Status post insertion of iliac artery stent (~09/2015) History of kidney stones (1974) Hx of transurethral resection of prostate (~1966) Hx of coronary artery bypass graft (Unknown) Family History Father No problems noted. Mother No problems noted. Brother Coronary artery disease Social History household members: spouse Smoking Status: Former smoker alcohol intake: current Assessment & Plan Assessment and plan (1) BPH w urinary obs/LUTS: Status: Acute Plan: 84 y/o M w/ BPH and bothersome LUTS that are refractory to medical therapy who is now POD 1 s/p an unremarkable TURP. Randhawa catheter removed this AM. Recommendations: He will urinate into a urinal and notify his nursing team each time this happens. They will then record his urine output as well as a PVR for each void. He will continue to hydrate as much as possible over the next few weeks to flush any blood out of his bladder before it has the chance to form a clot. Should his urine remain relatively clear and light red and he do an adequate job of emptying his bladder, will discharge home without a catheter. Time-Based Coding :: [TOTAL MINUTES] spent with patient and on the chart (including review of chart, obtaining history, exam, reviewing outside data, placing orders, documenting exam and treatment plan, and counseling patient) on [DATE]. Quality VTE Deep Vein Thrombosis/Pulmonary Embolism Present on Admission: No IH PROFEE Charge codes Subsequent inpatient/observation care: [id number]
[2024-06-17 09:27] LABS: BUN Creatinine Ratio 13.2 (6-22); Blood Urea Nitrogen 14 mg/dL (9-20); Calcium 8.4 mg/dL (8.4-10.2); Carbon Dioxide 28 mmol/L (22-32); Chloride 104 mmol/L (98-107); Estimated Glomerular Filt Rate > 60 mL/min (>60); Glucose 98 mg/dL (80-110); HEMOLYSIS < 15 (0-50); Potassium 4.1 mmol/L (3.4-5.1); Sodium 136 mmol/L (137-145)
--- NOTE | 2024-06-17 12:13 | CM.DANOTE ---
Brief DCP assessment Note Pt is a 84yo M here POD1 from surgery with Dr. De Paz for bladder-neck obstruction. [facility] INSURANCE PRODUCER reviewed EMR. Per chart, pt lives indep at home in [place] with spouse Genjalyn. Per chart, pt [place]. Per RN report, indep in room no obvious CM needs. Per chart, pt cleared to dc home with spouse support today. INSURANCE PRODUCER unable to meet with pt at this time due to triaging needs P: home with spouse support and OP f/u. No identified barriers to safe dc home at this time. CM team will continue to follow as needed NOAH Coyne Discharge Planning/Care Management Advanced directive, confirm from FAMILY Start: 06/16/24 11:32 Freq: Q24H Status: Active Protocol: Document 06/16/24 11:32 CLP (Rec: 06/16/24 15:06 CLP [id number]) Advance Directive, confirm on record Time 12:00 Person contacted Patient Copy received No CM Discharge Assessment Start: 06/17/24 12:12 Freq: Status: Active Protocol: Document 06/17/24 12:12 SL (Rec: 06/17/24 12:13 SL [id number]) Discharge Planning Assessment Assigned Chromosomal Disorders Counselor NOAH Olivera DPOA/Assigned Designee Name Genjalyn, spouse Contact Information [phone] Advance Directives? Yes Advance Directives on File Yes History Provided By Patient Prior Living Arrangements House Household Members spouse Independent with ADL's Yes Is patient alert and oriented? Yes Barriers to Discharge No Discharge Plan Home Referrals Initiated None needed Whiteboard Updated in Patient Room with No name and ext. # of Chromosomal Disorders Counselor Review Status In Process Please Provide Date Initial DC 06/17/24 Assessment Was Performed Next Review Type Continued Stay Review Pre-Anesthesia Assessment Start: 06/13/24 09:32 Freq: Status: Active Protocol: Document 06/13/24 09:32 LB (Rec: 06/13/24 10:50 LB [id number]) Pre-Anesthesia Assessment PAC Comment Called and notified that pt has penile implant. Preferred Name Michael Patient Information Reviewed Via Phone Assessment Assessment Completed With Patient Diagnostic Results BMP/CMP,Urinalysis Comment at 04/30, 05/31. Primary Care Provider Mani Adamson Medical Clearance Received Yes Seen Specialist in Last 12 Months Yes Specialist Seen Ventilator Specialist,Electrocardiograph Technician, Child Life Specialist,Urologist Primary Language Maldivian Preferred Language [place] [employer] Nursery Supervisor Required No Height 162.56 cm Weight 72.121 kg Body Mass Index (BMI) 27.3 Hearing Ability Use of Hearing Aid Visual Assist Glasses Dentition Type Teeth, Natural Present Barriers to Learning None Other Aids No Hx Anesthesia Reactions No Hx Family Anesthesia Reaction No Hx Malignant Hyperthermia No Hx Blood Transfusions No Anesthesia Review Requested No Network Specialist No alcohol intake current alcohol intake frequency 0-2 drinks per day Smoking Status Former smoker Substance Use Type does not use Musculoskeletal Symptoms Back Pain History of Falling (Recent or History of No ) Patient is completely paralyzed or No completely immobile Mental Status Oriented to own ability Is patient on oxygen? No Suspected Sleep Apnea Yes: sleep study 07/31. Currently Taking a Beta Vonnie No Can You Climb a Flight of Stairs Without No SOB Hx Chest Pain No Hx SOB No Hx Syncope or Dizziness No Anti-Coagulant Therapy Yes: ASA 81mg Has a Ventilator Specialist Yes Ventilator Specialist name Dr Emeka Colmenares Cardiac Testing No Hx Pacemaker/ICD No Cardiac Clearance Received Yes Comment Dr Trujillo Dysphagia No Genitourinary Symptoms Difficulty Urinating Bladder Pattern Hesitancy,Nocturia Urinary Catheter Present No Hx Urinary Self Catheterization No Diabetes No Hx Drug Resistant Organism No Presence of External or Internal Medical Yes: Stents, penile implant Devices Have you had any close contact with No someone diagnosed with COVID-19? Are you experiencing any of these No symptoms symptoms? Received a COVID vaccine? Yes Marital Status Lives With spouse Current Living Arrangements House Number of Floors (Floors) Two Floors Number of Stairs To Enter/Railing? stair lifts. Support System Spouse Does the Patient Have Assistance After Yes Surgery Patient Discharge Plan Description Return Home Feels Safe in Current Environment Yes Do you have a plan to hurt yourself or No Plan others? Do You Have Any Spiritual Beliefs That No May Affect Your HC Choices? Do You Have Any Cultural Practices That No May Affect Your HC Choices? Who Can We Speak to About Patient's Care Friends/family Identifying Code for Release of Patient declines to issue Information Health Care Proxy/Next of Kin jalyn Melissa Health Care Proxy H [phone] C Emergency Contact Name Manuela Adams - daughter Emergency Contact Advance Directives? Yes Advance Directives on File Yes Requested Patient Bring Advanced Not Applicable Directives DOS Power of Staff Research Associate Yes Power of Staff Research Associate Name Carolyn Torres Power of Staff Research Associate [phone] c PAC Instructions Assistance for 24 hours post- op,Medications to take/avoid, No ETOH/petroleum product on skin DOS,NPO,Post-op transportation,Pre-surgical wash,Sensory aids,Sturdy shoes /comfortable clothes,Do not bring valuables and remove jewelry
--- NOTE | 2024-06-17 13:16 | PC.NURSE ---
Pt is dressed and ready for discharge home with Spouse. IV has been removed. Went over d/c instructions with Pt and Spouse-discussed d/c meds, time of last dose, reviewed stroke education, s/s of infection, reminded Pt to continue to drink fluids to prevent constipation or dehydration, observe urine output for clots and bleeding as well as adequate urine output, reminded Pt that urine may turn orange from Pyridium, and to follow up as directed. Pt denied further questions and was taken out via w/c by MEDIA MANAGER to POV with Spouse and all belongings.
== END 2024-06-17 13:19 | disposition home or self-care (01) ==
LOC: AC 06-17 11:58 → OR 06-17 13:29
PROVIDERS: PCP Family Medicine; Referring Provider Urology; Visit Provider Urology
PROC: 0VT08ZZ Resection of Prostate, Via Natural or Artificial Opening Endoscopic (ICD-10-PCS; CPT 52601; principal; 2024-06-16 09:45)
DX: N40.1 Benign prostatic hyperplasia with lower urinary tract symptoms (principal); N32.0 Bladder-neck obstruction; R33.9 Retention of urine, unspecified; R39.12 Poor urinary stream; R39.11 Hesitancy of micturition; R35.1 Nocturia
CPT/HCPCS: 52630; 80048; 85027; J0690; J1170; J2405; J2704

== ENCOUNTER → 2024-06-24 10:43 | Outpatient (CLI) | payer MEDICARE, BC, SELFPAY ==
[2024-06-16 08:13] VITALS: BMI 26.1
--- NOTE | 2024-06-24 10:47 | DI.CT.S_ITS ---
PROCEDURE: CT CHEST ABD PEL W CON INDICATIONS: 84 y/o M w/ newly diagnosed high-risk prostate cancer TECHNIQUE: After the administration of intravenous contrast, 5 mm thick sections acquired from the lung apices to the symphysis. 5 mm coronal and sagittal reformats were performed, with additional 7 mm MIP reformats through the lungs. For radiation dose reduction, the following was used: automated exposure control, adjustment of mA and/or kV according to patient size. COMPARISON: None. FINDINGS: Image quality: Excellent. CHEST: Lungs and Pleura: No new pulmonary nodules or masses. Calcified nodules within the left lung apex (series 5, image 48) and posterior left lower lobe are unchanged. Subpleural areas of interstitial thickening along the inferior right upper lobe, anterior left upper lobe and medial right lower lobe remain unchanged compatible with scarring. No new focal airspace opacity or consolidation. No new areas of consolidation or focal airspace opacity. No evidence of pneumothorax or pleural effusion. Lower Neck: No enlarged lymph nodes. Thyroid: No thyroid nodules which require sonographic follow up, per consensus guidelines. Axillae: No enlarged lymph nodes. Chest Wall: Unremarkable. Heart: Heart size is normal. No pericardial effusion. Coronary artery calcifications. Thoracic Vessels: The aorta and pulmonary arteries demonstrate normal size. Mediastinum and Minnie: No enlarged lymph nodes. Esophagus: No wall thickening. No hiatal hernia. ABDOMEN: Liver: No solid mass. Gallbladder: No radiopaque gallstones or wall thickening. Biliary ducts: No biliary dilation. Pancreas: No focal mass lesion. No pancreatic duct dilatation or inflammatory changes. Spleen: Size is within normal limits. Adrenal Glands: Nonspecific nodularity of the left adrenal gland appears unchanged. Right adrenal gland appears normal in morphology. Kidneys and Ureters: 2 small nonobstructing stones upper pole left kidney ranging in size from 3-4 mm. 5 mm nonobstructing stone mid right kidney. Punctate nonobstructing stone lower pole left kidney (series 2, image 63). Relative atrophy of the right kidney compared to the left most likely related to arterial insufficiency given occlusive calcified plaque involving the right renal artery ostium. Stomach and Bowel: Small and large bowel appear normal in caliber without evidence of bowel obstruction. Normal-appearing appendix. Peritoneum: No abnormal intraperitoneal fluid. No free air. Ventral Wall: No significant ventral hernia. Abdominal Nodes: No retroperitoneal or mesenteric adenopathy by size criteria. Vessels: Heavily calcified plaque throughout the abdominal aorta with focal ectasia of the distal abdominal aorta measuring 3.0 cm in greatest transverse dimension. Bilateral common iliac artery stents are patent. PELVIS: Pelvic Organs: Unchanged appearance of prostate gland. Penile implant with reservoir pump in the right inguinal fossa. Bladder: No bladder wall thickening, accounting for underdistention. Pelvic Nodes: No enlarged lymph nodes. Miscellaneous: No inguinal hernias are seen. Bones: No aggressive osseous abnormality. Progression of compression fractures involving T10, T11 and T12 vertebral bodies. Compression deformity of T6. IMPRESSION: 1. No evidence of metastatic disease within the abdomen or pelvis. 2. Bilateral renal calculi as described. 3. Progression of thoracic vertebral compression deformities as described above. Dictated by: Lukasz White M.D. on 06/24/2024 at 16:16 Approved by: Lukasz White M.D. on 06/24/2024 at 17:03
--- NOTE | 2024-06-24 10:47 | DI.NM.S_ITS ---
PROCEDURE: NM BONE SCAN WHOLE BODY RADIOPHARMACEUTICAL: 20.9 mCi Tc-99m MDP IV. INDICATIONS: 84 y/o M w/ newly diagnosed high-risk prostate cancer TECHNIQUE: Delayed whole-body scintigrams were obtained approximately 3-4 hours after intravenous injection of radiotracer. Anterior and posterior views were acquired from vertex to feet. Additional left and right oblique views of the pelvis were obtained. COMPARISON: [facility], CT, CT CHEST ABD PEL W CON, 06/24/2024, 11:53. FINDINGS: Physiologic uptake is noted within the kidneys and bladder. There is marked increased uptake at T10 through T12. Additional scattered areas of uptake are identified within the cervical, thoracic and lumbar spine. Increased uptake is noted at the ankles, knees as well as 1st CMC joints. IMPRESSION: Marked uptake at the levels of T10 through T12 corresponding to compression fractures on CT exam. Additional areas of uptake are identified within the spine, indeterminate for metastatic disease versus degenerative change. Dictated by: Kala Burgos M.D. on 06/24/2024 at 17:29 Approved by: Kala Burgos M.D. on 06/24/2024 at 17:31
== END ==
LOC: NUCM 10:46
PROVIDERS: PCP Family Medicine; Referring Provider Urology; Visit Provider Urology
DX: C61 Malignant neoplasm of prostate (principal); M48.54XA Collapsed vertebra, not elsewhere classified, thoracic region, initial encounter for fracture; R91.8 Other nonspecific abnormal finding of lung field; I25.10 Atherosclerotic heart disease of native coronary artery without angina pectoris; N20.0 Calculus of kidney; N26.1 Atrophy of kidney (terminal); I77.811 Abdominal aortic ectasia
CPT/HCPCS: 71260; 74177; 78306; A9503; Q9967

== ENCOUNTER → 2024-07-08 12:20 | Outpatient (CLI) | payer MEDICARE, BC, SELFPAY ==
[2024-06-25 09:48] VITALS: BMI 26.1
[2024-07-08 13:21] LABS: Hematocrit 44.4 % (41-53); Hemoglobin 14.8 g/dL (13.5-17.5)
[2024-07-08 13:47] LABS: BUN Creatinine Ratio 16.5 (6-22); Blood Urea Nitrogen 22 mg/dL (9-20); Calcium 9.2 mg/dL (8.4-10.2); Carbon Dioxide 27 mmol/L (22-32); Chloride 104 mmol/L (98-107); Estimated Glomerular Filt Rate 52 mL/min (>60); Glucose 93 mg/dL (80-110); HEMOLYSIS < 15 (0-50); Phosphorous 3.4 mg/dL (2.3-3.7); Potassium 4.4 mmol/L (3.4-5.1); Sodium 137 mmol/L (137-145)
[2024-07-09 07:37] LABS: Parathyroid Hormone Int 25 pg/mL (15-65)
== END ==
PROVIDERS: PCP Family Medicine; Referring Provider Student in an Organized Health Care Education/Training Program; Visit Provider Student in an Organized Health Care Education/Training Program
DX: N05.9 Unspecified nephritic syndrome with unspecified morphologic changes (principal); D70.9 Neutropenia, unspecified; E83.30 Disorder of phosphorus metabolism, unspecified; R80.9 Proteinuria, unspecified; N25.81 Secondary hyperparathyroidism of renal origin
CPT/HCPCS: 36415; 80048; 83970; 84100; 85014; 85018

== ENCOUNTER → 2024-07-10 09:24 | Outpatient (CLI) | payer MEDICARE, BC, SELFPAY ==
[2024-06-25 09:48] VITALS: BMI 26.1
[2024-07-10 12:12] LABS: Creatinine Urine Random 63.96 mg/dL; Protein (Total) Urine Random 16 mg/dL (0-12); Protein Creatinine Ratio Urine 0.25 GRAM/24H
== END ==
LOC: LAB 09:28
PROVIDERS: PCP Family Medicine; Referring Provider Student in an Organized Health Care Education/Training Program; Visit Provider Student in an Organized Health Care Education/Training Program
DX: R80.9 Proteinuria, unspecified (principal)
CPT/HCPCS: 82570; 84156

== ENCOUNTER → 2024-07-29 10:09 | Outpatient (CLI) | payer MEDICARE, BC, SELFPAY ==
[2024-06-25 09:48] VITALS: BMI 26.1
== END ==
PROVIDERS: PCP Family Medicine; Visit Provider Urology
DX: C61 Malignant neoplasm of prostate (principal); N40.1 Benign prostatic hyperplasia with lower urinary tract symptoms; N13.8 Other obstructive and reflux uropathy; E29.1 Testicular hypofunction; R35.1 Nocturia; R39.11 Hesitancy of micturition; R39.198 Other difficulties with micturition; R39.9 Unspecified symptoms and signs involving the genitourinary system; M81.0 Age-related osteoporosis without current pathological fracture; Z87.442 Personal history of urinary calculi
CPT/HCPCS: 51798; 81002; 87086; 99213

== ENCOUNTER → 2024-07-30 08:49 | Outpatient (CLI) | payer MEDICARE, BC, SELFPAY ==
[2024-06-25 09:48] VITALS: BMI 26.1
[2024-07-30 10:48] LABS: Testosterone 163 ng/dL (71.8-623)
== END ==
PROVIDERS: PCP Family Medicine; Referring Provider Urology; Visit Provider Urology
DX: E29.1 Testicular hypofunction (principal)
CPT/HCPCS: 36415; 84403

== ENCOUNTER → 2024-10-31 11:44 | Outpatient (CLI) | payer MEDICARE, BC, SELFPAY ==
[2024-06-25 09:48] VITALS: BMI 26.1
[2024-10-31 13:35] LABS: Prostate Specific Antigen 3.79 ng/mL (0.10-4.00)
== END ==
PROVIDERS: PCP Family Medicine; Referring Provider Radiology Radiation Oncology; Visit Provider Radiology Radiation Oncology
DX: C61 Malignant neoplasm of prostate (principal)
CPT/HCPCS: 36415; 84153

== ENCOUNTER → 2024-11-04 08:14 | Outpatient (CLI) | payer MEDICARE, BC, SELFPAY ==
[2024-06-25 09:48] VITALS: BMI 26.1
--- NOTE | 2024-11-04 08:15 | DI.US.S_ITS ---
PROCEDURE: US CAROTID DOPPLER BI INDICATIONS: BI CAROTID ARTERY STENOSIS TECHNIQUE: Color and pulse Doppler interrogation was performed of both carotid systems, with image documentation and velocity measurements. COMPARISON: [facility], CT, CT CHEST ABD PEL W CON, 06/24/2024, 11:53. [facility], US, US CAROTID DOPPLER BI, 09/11/2022, 17:06. FINDINGS: Stenosis calculations are based on SRU (Society of Radiologists in Ultrasound) criteria. The flow velocities and the arterial waveforms are normal within both carotid arterial systems. Atherosclerotic plaque is seen on both sides, right worse than left. The estimated degree of internal carotid artery stenosis is less than 50%. Antegrade flow is confirmed within both vertebral arteries. However, there is decreased flow velocity seen within the right vertebral artery, measuring 14 centimeters/second, compared to 75 centimeters/second on the left. There is elevated flow velocity within the right subclavian artery, measuring 231 centimeters/second. IMPRESSION: No hemodynamically significant stenosis is seen. 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 The left carotid artery is now considered to be within normal limits, by velocity criteria. Atherosclerotic plaque is noted bilaterally. Dictated by: Eren Wong M.D. on 11/04/2024 at 10:40 Approved by: Eren Wong M.D. on 11/04/2024 at 10:43
== END ==
PROVIDERS: PCP Family Medicine; Referring Provider Internal Medicine Cardiovascular Disease; Visit Provider Internal Medicine Cardiovascular Disease
DX: I65.23 Occlusion and stenosis of bilateral carotid arteries (principal)
CPT/HCPCS: 93880

== ENCOUNTER → 2024-11-07 08:53 | Outpatient (CLI) | payer MEDICARE, BC, SELFPAY ==
[2024-06-25 09:48] VITALS: BMI 26.1
--- NOTE | 2024-11-07 | DI.NM.S_ITS ---
PROCEDURE: NM CALEB PERF SPECT REST & STR Rest and exercise myocardial perfusion SPECT with gated imaging and ejection fraction RADIOPHARMACEUTICAL: 12.6 mCi Tc-99m sestamibi IV at rest and 26.0 mCi Tc-99m sestamibi IV at peak exercise. A [id number] was performed. INDICATIONS: Atherosclerosis of coronary artery bypass graft(s) without a TECHNIQUE: Radiopharmaceutical was injected at peak stress test, and also at rest. SPECT images were obtained. SPECT myocardial perfusion images were displayed in short axis, horizontal long axis, and vertical long axis views. Gated images were reviewed using Surfingbird software. COMPARISON: None. CARDIAC STRESS: A standard Param treadmill exercise tolerance test was performed by the patient under the supervision of an attending staff. The patient exercised for 9 minutes and 40 seconds; 10.1 METS; functional aerobic impairment (EJ) is -113%. Hemodynamic data: There is normal blood pressure and heart rate response to exercise stress. Patient achieved 89% of maximum predicted heart rate at peak exercise. Peak blood pressure 171/98. Symptoms: Patient denied chest pain during exercise. EKG: Rest ECG sinus bradycardia 58 bpm. Exercise ECG tachycardia no ST segment changes, occasional PVC. FINDINGS: Raw data: There is good myocardial labeling by radiotracer. No significant motion artifacts. Left ventricle function: Gated images demonstrate normal left ventricle wall thickening. No segmental wall motion abnormality. No transient ischemic dilation; TID is 1.04 (normal less than 1.3). The left ventricle resting end-diastolic volume is 129 mL. Left ventricle stress ejection fraction is 73%; normal values are above 45%. Myocardial perfusion: There is a small size, mild intensity fixed mid to distal inferolateral wall defect that completely resolves on prone imaging. No reversible perfusion defects. IMPRESSION: Low risk study. No evidence of exercise-induced ischemia on ECG or SPECT imaging. Visually the left ventricle is normal in size with preserved systolic function. Normal hemodynamic response. Supranormal exercise capacity. Dictated by: Lenka Mora D.O. on 11/07/2024 at 16:21 Approved by: Lenka Mora D.O. on 11/07/2024 at 16:28
== END ==
PROVIDERS: PCP Family Medicine; Referring Provider Internal Medicine Cardiovascular Disease; Visit Provider Internal Medicine Cardiovascular Disease
DX: I25.810 Atherosclerosis of coronary artery bypass graft(s) without angina pectoris (principal)
CPT/HCPCS: 78452; 93017; A9502

== ENCOUNTER → 2025-01-28 09:19 | Outpatient (CLI) | payer MEDICARE, BC, SELFPAY ==
[2024-06-25 09:48] VITALS: BMI 26.1
--- NOTE | 2025-01-28 09:21 | DI.ECHO.S_ITS ---
[place] [facility] : : [address] : : [place] : : [id number] : : Phone: [phone] Echocardiogram Report + + :Name: YANCI STEEN Study Date: 01/28/2025 Height: 64 in : :[facility] ReadingLocation: Weight: 152 lb : : Gender: Male BSA: 1.7 m2 : :: 1940 Age: 84 yrs BP: 147/77 mmHg: :Reason For Study: AORTIC VALVE INSUFFICIENCY : :Ordering Physician: AVRIL, : :TERRENCE Performed By: Isaac Diaz : :Referring: TERRENCE MACKENZIE : + + Interpretation Summary The left ventricular cavity is small. The ejection fraction is estimated to be 70-75%. The right ventricle is normal in size and function. There is mild to moderate aortic regurgitation. The ascending aorta is mildly enlarged. There is aortic root sclerosis/calcification. Moderate atherosclerotic plaque. There is moderate luminal irregularity and echogenicity in the abdominal aorta, suggestive of aortic atherosclerotic disease. Moderate atherosclerotic plaque(s) in the aortic arch. The IVC is of normal diameter and collapses greater than 50% with a sniff. This suggests a low right atrial pressure of 3 mm Hg. Procedure: A two-dimensional transthoracic echocardiogram with color flow and Doppler was performed. The study quality was technically good. There is no prior echocardiogram noted for this patient. The patient was in normal sinus rhythm during the exam. Left Ventricle: Left ventricular wall thickness is mildly increased. The left ventricular cavity is small. There is no echo evidence for significant left ventricular outflow tract obstruction. There is no ventricular septal defect visualized. The ejection fraction is estimated to be 70-75%. There are no focal wall motion abnormalities. Diastolic parameters suggest a relaxation abnormality of the left ventricle, consistent with probable normal filling pressures. Right Ventricle: The right ventricle is normal in size and function. Atria: The left atrium is mildly dilated. Right atrial size is normal. There is no Doppler evidence for an interatrial shunt. Mitral Valve: There is mild mitral annular calcification. There is trace mitral regurgitation. Aortic Valve: The aortic valve is trileaflet. The aortic valve opens well. The aortic valve is mildly calcified. There is mild to moderate aortic regurgitation. Tricuspid Valve: The tricuspid valve is not well visualized, but is grossly normal. There is trace tricuspid regurgitation. The right ventricular systolic pressure is estimated to be at least 27 mmHg based on an estimated right atrial pressure of 3 mm Hg. Pulmonic Valve: The pulmonic valve is not well seen, but is grossly normal. There is trace pulmonic regurgitation. Great Vessels: There is aortic root sclerosis/calcification. The aortic root is normal size. The ascending aorta is mildly enlarged. There is moderate luminal irregularity and echogenicity in the abdominal aorta, suggestive of aortic atherosclerotic disease. Moderate atherosclerotic plaque(s) in the aortic arch. The pulmonary artery is normal size. The IVC is of normal diameter and collapses greater than 50% with a sniff. This suggests a low right atrial pressure of 3 mm Hg. Pericardium/ Pleura There is no pericardial effusion. There is no pleural effusion. MMode/2D Measurements & Calculations LVIDd: 3.9 cm LVOT diam: 2.3 cm LVIDs: 2.3 cm Ao root diam: 3.7 cm FS: 40.9 % asc Aorta Diam: 3.9 cm EPSS: 0.29 cm IVSd: 1.4 cm LVPWd: 1.4 cm LV johnson. diameter/BSA (cm/m^2): 2.2 LV sys. diameter/BSA (cm/m^2): 1.3 LA A2 area: 19.4 cm2 RA long axis: 4.4 cm LA A4 area: 18.9 cm2 RA area: 9.7 cm2 LA length (vol): 5.2 cm RA vol: 18.4 ml LA vol: 60.0 ml RA : 10.6 ml/m2 LA vol index: 34.5 ml/m2 IVC diam: 2.1 cm RVD1 (basal): 3.2 cm RVD2 (mid): 3.0 cm TAPSE: 1.4 cm Doppler Measurements & Calculations Ao V2 max: 160.5 cm/sec LVOT Max John: 110.6 cm/sec Ao V2 mean: 108.0 cm/sec LV V1 max P.9 mmHg Ao max P.3 mmHg LV V1 VTI: 27.2 cm Ao mean P.3 mmHg EVA(I,D): 3.9 cm2 Ao V2 VTI: 28.8 cm EVA(V,D): 2.8 cm2 sev ratio: 0.95 EVA indexed to BSA (cm^2/m^2): 2.2 AI P1/2t: 399.6 msec AI dec slope: 235.6 cm/sec2 MV E max john: 51.6 cm/sec TR max john: 247.1 cm/sec MV A max john: 63.6 cm/sec TR max P.4 mmHg MV E/A: 0.81 PA V2 max: 112.6 cm/sec Med Peak E' John: 4.5 cm/sec PA V2 mean: 79.9 cm/sec E/E' med: 11.5 PA mean P.8 mmHg Lat Peak E' John: 9.1 cm/sec PA pr(Accel): 46.5 mmHg E/E' lat: 5.7 E/e' average: 8.6 MV dec time: 0.20 sec SV(LVOT): 111.3 ml Reading Physician:12:38 PM
== END ==
PROVIDERS: PCP Family Medicine; Referring Provider Internal Medicine Cardiovascular Disease; Visit Provider Internal Medicine Cardiovascular Disease
DX: I34.81 Nonrheumatic mitral (valve) annulus calcification (principal); I35.1 Nonrheumatic aortic (valve) insufficiency; I77.89 Other specified disorders of arteries and arterioles
CPT/HCPCS: 93306

== ENCOUNTER → 2025-03-05 08:44 | Outpatient (CLI) | payer MEDICARE, BC, SELFPAY ==
[2024-06-25 09:48] VITALS: BMI 26.1
[2025-03-05 09:58] LABS: Hemoglobin 13.7 g/dL (13.5-17.5)
[2025-03-05 10:12] LABS: Creatinine Urine Random 87.22 mg/dL; Protein (Total) Urine Random 10 mg/dL (0-12); Protein Creatinine Ratio Urine 0.11 GRAM/24H
[2025-03-05 10:26] LABS: BUN Creatinine Ratio 22.5 (6-22); Blood Urea Nitrogen 23 mg/dL (9-20); Calcium 8.8 mg/dL (8.4-10.2); Carbon Dioxide 26 mmol/L (22-32); Chloride 103 mmol/L (98-107); Estimated Glomerular Filt Rate > 60 mL/min (>60); Glucose 98 mg/dL (70-99); HEMOLYSIS < 15 (0-50); Sodium 137 mmol/L (137-145)
[2025-03-06 10:09] LABS: Parathyroid Hormone Int 32 pg/mL (15-65)
[2025-03-12 09:09] LABS: Percent Free Testosterone 1.51 % (1.50-4.20); Testosterone Free 2.39 ng/dL (5.00-21.00)
== END ==
PROVIDERS: PCP Family Medicine; Referring Provider Student in an Organized Health Care Education/Training Program; Visit Provider Student in an Organized Health Care Education/Training Program
DX: N05.9 Unspecified nephritic syndrome with unspecified morphologic changes (principal); D63.1 Anemia in chronic kidney disease; D70.9 Neutropenia, unspecified; N25.81 Secondary hyperparathyroidism of renal origin; R80.9 Proteinuria, unspecified; R79.89 Other specified abnormal findings of blood chemistry
CPT/HCPCS: 36415; 80048; 82570; 83970; 84156; 84402; 84403; 85014; 85018

== ENCOUNTER → 2025-03-16 10:46 | Outpatient (CLI) | payer MEDICARE, BC, SELFPAY ==
[2024-06-25 09:48] VITALS: BMI 26.1
--- NOTE | 2025-03-16 10:48 | DI.RAD.S_ITS ---
PROCEDURE: XR DEXA AXIAL SKELETON INDICATIONS: screening COMPARISON: [facility], , XR DEXA AXIAL SKELETON, 11/29/2023, 13:02. [facility], CR, XR DEXA AXIAL SKELETON, 02/06/2023, 12:01. FINDINGS: Lumbar Spine: Bone mineral density 1.001 g/cm2, T score -0.7, increased by 13.4%. Left Femoral Neck: Bone mineral density 0.560 g/cm2, T score -2.6. Left Hip: Bone mineral density 0.605 g/cm2, T score -2.8, no significant change. Fracture Risk Calculation (when applicable): 10-year fracture risk of a major osteoporotic fracture 15 percent and of a hip fracture 6.6 percent. (T score greater or equal to -1.0 to: NORMAL) (T score from -1.1 to -2.4: OSTEOPENIA) (T score less than or equal to -2.5: OSTEOPOROSIS) IMPRESSION: Osteoporosis by WHO classification peer Follow-up guidelines as follows: Osteoporosis: Consider a repeat DEXA and Vertebral Fracture Assessment (VFA) exam in 2 years or sooner if medically necessary, to reassess this patient's status. Osteopenia: Consider a repeat DEXA in 2-3 years to reassess this patient's status, or if there is a new clinical indication. Normal: Consider a repeat DEXA in 5 years or sooner, or if there is a new clinical indication. All treatment decisions require clinical judgment and consideration of individual patient factors, including patient preferences, comorbidities, previous drug use, risk factors not captured in the FRAX model (e.g., frailty, falls, vitamin D deficiency, increased bone turnover, interval significant decline in bone density ) and possible under- or over-estimation of fracture risk by FRAX. In addition, the NOF Guide recommends that FDA-approved medical therapies be considered in postmenopausal women and men age >= 50 years with a: * Hip or vertebral (clinical or morphometric) fracture * T-score of <=-2.5 at the spine or hip * Ten-year fracture probability by FRAX of >= 3% for hip fracture or >=20% for major osteoporotic fracture. Dictated by: Abdi Roblero M.D. on 03/16/2025 at 15:00 Approved by: Abdi Roblero M.D. on 03/16/2025 at 15:02
== END ==
PROVIDERS: PCP Family Medicine; Referring Provider Family Medicine; Visit Provider Family Medicine
DX: M81.0 Age-related osteoporosis without current pathological fracture (principal)
CPT/HCPCS: 77080

== ENCOUNTER → 2025-05-08 08:41 | Outpatient (CLI) | payer MEDICARE, BC, SELFPAY ==
[2024-06-25 09:48] VITALS: BMI 26.1
[2025-05-08 09:46] LABS: Cholesterol 107 mg/dL (140-199); HDL Cholesterol 42 mg/dL (40-60); Triglycerides 91 mg/dL (35-150)
== END ==
PROVIDERS: PCP Family Medicine; Referring Provider Internal Medicine Cardiovascular Disease; Visit Provider Internal Medicine Cardiovascular Disease
DX: E78.5 Hyperlipidemia, unspecified (principal)
CPT/HCPCS: 36415; 80061

== ENCOUNTER 2025-09-06 16:26 | Observation (INO) | payer MEDICARE, BC, SELFPAY ==
[2024-06-25 09:48] VITALS: BMI 26.1
[2025-09-06] VITALS (24 sets, daily range): BP systolic 129–193; BP diastolic 62–110; PULSE 54–85; RESP 13–33; TEMP 36.6; O2SAT 93–98; BMI 26.1
--- NOTE | 2025-09-06 | DI.ECHO.S_ITS ---
[place] [facility]---------+ [facility] : : [address] : : [place] : : [id number] : : Phone: [phone] Echocardiogram Report + + :Name: YANCI STEEN Study Date: 09/07/2025 Height: 64 in : :[facility] ReadingLocation: Weight: 152 lb : : Gender: Male BSA: 1.7 m2 : :: 1940 Age: 85 yrs BP: 193/75 mmHg: :Reason For Study: Chest pain : :Ordering Physician: MARCUS, : :ELTON Performed By: Tyson Mckee : :Referring: ELTON VELAZQUEZ : + + Interpretation Summary The left ventricle is normal in size. Left ventricular systolic function is normal. The ejection fraction is estimated to be 60-65%. There are no focal wall motion abnormalities. Normal diastolic function. The right ventricle is normal in size and function. Right ventricular systolic pressure is estimated to be 22 mmHg plus the clinically estimated CVP which cannot be estimated on this exam. The left atrium is moderately dilated. There is mild mitral regurgitation. There is mild aortic regurgitation. The ascending aorta is mildly enlarged. Procedure: A two-dimensional transthoracic echocardiogram with color flow and Doppler was performed. The study quality was technically adequate. A contrast injection of Definity was performed to improve assessment of LV function. Comparison is made with the echocardiogram of 01/28/2025. The patient was in a bradycardic rhythm during the exam. Left Ventricle: The left ventricle is normal in size. Left ventricular wall thickness is mildly increased. There is no thrombus. Left ventricular systolic function is normal. The ejection fraction is estimated to be 60-65%. There are no focal wall motion abnormalities. Normal diastolic function. Right Ventricle: The right ventricle is normal in size and function. Atria: The left atrium is moderately dilated. The right atrium is mildly dilated. There is no Doppler evidence for an interatrial shunt. Mitral Valve: The mitral valve leaflets appear to open well. There is no mitral valve stenosis. There is mild mitral regurgitation. Aortic Valve: The aortic valve is trileaflet. There is mild aortic valve sclerosis. There is no aortic valve stenosis. There is mild aortic regurgitation. Tricuspid Valve: The tricuspid valve leaflets are thin and pliable. There is mild tricuspid regurgitation. Right ventricular systolic pressure is estimated to be 22 mmHg plus the clinically estimated CVP which cannot be estimated on this exam. Pulmonic Valve: The pulmonic valve is not well seen, but is grossly normal. There is mild pulmonic regurgitation. Great Vessels: The aortic root is normal size. The ascending aorta is mildly enlarged. The pulmonary artery is normal size. The inferior vena cava was not well visualized. Pericardium/ Pleura There is no pericardial effusion. MMode/2D Measurements & Calculations LVIDd: 4.9 cm LVOT diam: 2.0 cm LVIDs: 2.9 cm Ao root diam: 3.5 cm FS: 41.4 % asc Aorta Diam: 3.9 cm IVSd: 1.2 cm LVPWd: 1.2 cm LV johnson. diameter/BSA (cm/m^2): 2.8 LV sys. diameter/BSA (cm/m^2): 1.7 LA A2 area: 21.9 cm2 RVD1 (basal): 3.4 cm LA A4 area: 23.3 cm2 RVD2 (mid): 3.0 cm LA length (vol): 6.1 cm TAPSE: 1.8 cm LA vol: 70.8 ml LA vol index: 40.8 ml/m2 Doppler Measurements & Calculations Ao V2 max: 128.8 cm/sec LVOT Max John: 114.0 cm/sec Ao V2 mean: 81.1 cm/sec LV V1 max P.2 mmHg Ao max P.6 mmHg LV V1 VTI: 25.9 cm Ao mean P.1 mmHg EVA(I,D): 3.1 cm2 Ao V2 VTI: 27.1 cm EVA(V,D): 2.9 cm2 sev ratio: 0.96 EVA indexed to BSA (cm^2/m^2): 1.8 AI P1/2t: 648.5 msec AI dec slope: 162.8 cm/sec2 MV E max john: 57.4 cm/sec TR max john: 232.5 cm/sec MV A max john: 44.2 cm/sec TR max P.6 mmHg MV E/A: 1.3 PA V2 max: 97.5 cm/sec Med Peak E' John: 5.9 cm/sec PA V2 mean: 65.9 cm/sec E/E' med: 9.8 PA mean P.0 mmHg Lat Peak E' John: 12.4 cm/sec PA pr(Accel): 31.0 mmHg E/E' lat: 4.6 E/e' average: 7.2 MV dec time: 0.18 sec SV(LVOT): 83.4 ml Qp/Qs (V,Ao): 1.0/3.1 Arturo/Cecilia (MACI Oconnor): 1.10/08.0 Reading Physician:02:01 PM
--- NOTE | 2025-09-06 16:38 | DI.RAD.S_ITS ---
PROCEDURE: XR CHEST 1V INDICATIONS: chest pain TECHNIQUE: One view of the chest was acquired. COMPARISON: None. FINDINGS: Surgical changes and devices: Sternotomy. Disrupted inferior clamshell sternotomy wire. Lungs and pleura: Increased pulmonary markings. Blunting of the costophrenic angles. Mediastinum: Mediastinal contours appear normal. Heart size is enlarged. Bones and chest wall: No suspicious bony lesions. Overlying soft tissues appear unremarkable. IMPRESSION: Cardiomegaly with mild pulmonary edema and probable small effusions. Dictated by: Red Pickard M.D. on 09/06/2025 at 17:18 Approved by: Red Pickard M.D. on 09/06/2025 at 17:19
--- NOTE | 2025-09-06 16:38 | EKG_ITS ---
[address] [address] Test Date: 2025-09-06 Pat Name: William Torres Department: Room: Gender: Male [employer]: DELGADO : 1940 Requested By: Order Number: [id number] Reading MD: Measurements Intervals [place] Rate: 56 P: 30 CT: 168 QRS: -29 QRSD: 100 T: 1 QT: 428 QTc: 413 Interpretive Statements Sinus bradycardia Incomplete right bundle branch block Moderate voltage criteria for LVH, may be normal variant ( R in aVL , Mal product )
--- NOTE | 2025-09-06 16:38 | ED.CHESTPAIN ---
HPI - Chest Pain <José Roman, DO - Last Filed: 09/06/25 18:18> General Chief Complaint: Chest Pain Stated Complaint: Chest pain today, hx of hrt disease Time Seen by Provider: 09/06/25 16:32 History of Present Illness HPI narrative: 85-year-old male history of CAD with triple bypass, prostate cancer status post prostatectomy factor 5 Leiden mutation GERD kidney stones osteoporosis history compression fracture at T7 presents with midsternal chest pain described as tightness while walking the trail for 30 minutes that was constant in pain but pain is completely gone at this time. Patient denies any fever, chills, bodyaches, sore throat, back pain, diaphoresis, abdominal pain. Other than what is stated 14 point review system is negative Related Data Home Medications ?Medication ?Instructions ?Recorded ?Confirmed aspirin 81 mg tablet,delayed 81 mg PO QDAY ##0 12/08/16 07/29/24 release esomeprazole magnesium 20 mg 10 mg PO DAILY 01/13/19 07/29/24 capsule,delayed release (Nexium) ezetimibe 10 mg tablet 5 mg PO DAILY 09/11/22 07/29/24 rosuvastatin 40 mg tablet (Crestor) 40 mg PO QDAY 09/11/22 07/29/24 losartan 50 mg tablet 50 mg PO DAILY 11/05/23 07/29/24 amlodipine 5 mg tablet 10 mg PO DAILY 05/16/24 07/29/24 chlorthalidone 25 mg tablet 12.5 mg PO QAM 06/17/24 07/29/24 ascorbate calcium (vitamin C) 500 500 mg PO QDAY 06/26/24 07/29/24 mg tablet tamsulosin 0.4 mg capsule 0.4 mg PO BEDTIME 03/27/25 03/27/25 Previous Rx's ?Medication ?Instructions ?Recorded Disabled Parking Placard #1 ea 03/28/23 forteo needles #90 ea 04/27/23 potassium chloride 20 mEq 40 meq (2 x 20 mEq) PO DAILY #60 09/26/23 tablet,extended release tabs phenazopyridine 200 mg tablet 200 mg PO TID PRN pain #9 tabs 06/17/24 tadalafil 5 mg tablet (Cialis) 5 mg PO QDAY #90 tabs 04/09/25 pen needle, diabetic 32 gauge x #100 ea 04/14/25 (Sure Comfort Pen Needle) teriparatide 20 mcg/dose (560 20 mcg (0.08 mL) SUBCUT DAILY #2.4 07/10/25 mcg/2.24 mL) subcutaneous pen mL injector magnesium oxide 400 mg (241.3 mg 400 mg PO ONCE PM #90 tabs 08/05/25 magnesium) tablet Allergies Allergy/AdvReac Type Severity Reaction Status Date / Time cat dander (CAT DANDER) Allergy Unknown Verified 09/06/25 16:38 clopidogrel (From Plavix) Allergy hives Verified 09/06/25 16:38 HAYFEVER Allergy Mild Uncoded 09/06/25 16:38 Review of Systems <José Roman DO - Last Filed: 09/06/25 18:18> Review of Systems ROS Unobtainable: All systems reviewed & are unremarkable except as noted in HPI and below Patient History <José Roman DO - Last Filed: 09/06/25 18:18> Medical History Paroxysmal A-fib CKD (chronic kidney disease) Kyphosis Renal insufficiency Carotid artery stenosis AAA (abdominal aortic aneurysm) without rupture Low BUN Rosacea Bladder outlet obstruction BPH w urinary obs/LUTS Compression fx, lumbar spine Low back pain Myofascial pain Anxiety Thoracic back pain Spondylosis without myelopathy or radiculopathy, thoracolumbar region HTN (hypertension) Thoracic radiculopathy Compression fx, thoracic spine Constipation Acute lumbar back pain Acute bilateral thoracic back pain Actinic keratoses Low testosterone in male Chronic left shoulder pain Bilateral kidney stones Factor V Leiden mutation (Unknown) Erectile dysfunction (Unknown) GERD (gastroesophageal reflux disease) (Unknown) BPH (benign prostatic hyperplasia) (Unknown) Hyperlipemia (Unknown) Osteoporosis (Unknown) Hypogonadism (Unknown) Coronary artery disease (Unknown) Skin cancer (Unknown) Surgical History History of penile implant History of colonoscopy Status post insertion of iliac artery stent (~09/2015) History of kidney stones (1974) Hx of transurethral resection of prostate (~1966) Hx of coronary artery bypass graft (Unknown) Family History Father No problems noted. Mother No problems noted. Brother Coronary artery disease Social History household members: spouse Smoking Status: Never smoker alcohol intake: current alcohol intake frequency: a few times a week Exam <José Roman DO - Last Filed: 09/06/25 18:18> Narrative Exam Narrative: GENERAL: [85] year old patient appears stated age. Well-developed patient, in mild distress. HEAD: Atraumatic. Normocephalic. EYES: Pupils equal round and reactive. Extraocular motions intact. No scleral icterus. No injection or drainage. ENT: Nose without bleeding, purulent drainage. Throat without erythema, tonsillar hypertrophy or exudate. Airway patent. NECK: Trachea midline. Non tender CARDIOVASCULAR: Regular rate and rhythm without murmurs, gallops, or rubs. RESPIRATORY: Clear to auscultation. Breath sounds equal bilaterally. No wheezes, rales, or rhonchi. GASTROINTESTINAL: Abdomen soft, non-tender, nondistended. EXTREMITIES: No edema or joint tenderness. BACK: Nontender without deformity or crepitance. No flank tenderness. NEURO: AOx3. SKIN: No rash or erythema of visible areas Initial Vital Signs Initial Vital Signs: Vital Signs Pulse Rate 75 09/06/25 16:34 Pulse Oximetry 97 09/06/25 16:34 <Stefano Franco DO - Last Filed: 09/06/25 19:47> Initial Vital Signs Initial Vital Signs: Vital Signs Pulse Rate 75 09/06/25 16:34 Pulse Oximetry 97 09/06/25 16:34 Scores <José Roman DO - Last Filed: 09/06/25 18:18> HEART Score Heart Score history: Highly Suspicious Heart Score EKG: Non-Specific repolarization disturbance Heart Score Age: > or = 65 years old Heart Score risk factors: > 3 risk factors or hx of atherosclerotic disease Heart Score troponin: < or = to normal limit Heart Score Total: 7 <Stefano Franco DO - Last Filed: 09/06/25 19:47> HEART Score Heart Score Total: 7 Course <José Roman DO - Last Filed: 09/06/25 18:18> Orders Ordered: ED Orders 09/06/25 16:38 XR chest 1V Stat EKG-12 Lead Stat 09/06/25 16:46 Complete Blood Count AUTO DIFF Stat Comprehensive Metabolic Panel Stat Lipase Stat Magnesium Stat NT-proBNP (BNP-Adult 18+) Stat Troponin I Stat 09/06/25 18:46 Trop I [Troponin I] Stat EKG-12 Lead Stat Discontinued Medications Aspirin (Aspirin 81 Mg Chew Tab) 324 mg PO NOW ONE Stop: 09/06/25 16:38 Last Admin: 09/06/25 16:47 Dose: 324 mg Documented By: DINO Nitroglycerin (Nitroglycerin Oint 1 Inch/Gm Oint...G.) 0.5 inch TOP NOW ONE Stop: 09/06/25 16:38 Last Admin: 09/06/25 16:47 Dose: 0.5 inch Documented By: DINO Vital Signs Vital signs: Vital Signs - 8 hr 09/06/25 16:34 09/06/25 16:37 09/06/25 16:37 Temperature Pulse Rate 75 72 Respiratory Rate Blood Pressure 193/89 H Pulse Oximetry 97 98 Oxygen Delivery Method 09/06/25 16:38 09/06/25 16:47 09/06/25 17:00 Temperature 97.9 F Pulse Rate 75 70 75 Respiratory Rate 18 Blood Pressure 193/89 H 193/89 H Pulse Oximetry 98 Oxygen Delivery Method Room Air 09/06/25 17:30 09/06/25 17:31 09/06/25 17:31 Temperature Pulse Rate 61 Respiratory Rate 15 13 Blood Pressure 151/65 H Pulse Oximetry 94 95 Oxygen Delivery Method 09/06/25 18:00 09/06/25 18:01 09/06/25 18:01 Temperature Pulse Rate 60 61 Respiratory Rate 18 21 Blood Pressure 140/62 Pulse Oximetry 95 94 Oxygen Delivery Method 09/06/25 18:30 09/06/25 18:30 09/06/25 19:00 Temperature Pulse Rate 56 L 54 L Respiratory Rate 14 18 Blood Pressure 143/64 H Pulse Oximetry 93 94 Oxygen Delivery Method 09/06/25 19:01 09/06/25 19:01 Temperature Pulse Rate 56 L Respiratory Rate 20 Blood Pressure 143/65 H Pulse Oximetry 93 Oxygen Delivery Method <Stefano Franco DO - Last Filed: 09/06/25 19:47> Orders Ordered: ED Orders 09/06/25 16:38 XR chest 1V Stat EKG-12 Lead Stat 09/06/25 16:46 Complete Blood Count AUTO DIFF Stat Comprehensive Metabolic Panel Stat Lipase Stat Magnesium Stat NT-proBNP (BNP-Adult 18+) Stat Troponin I Stat 09/06/25 18:46 Trop I [Troponin I] Stat EKG-12 Lead Stat Discontinued Medications Aspirin (Aspirin 81 Mg Chew Tab) 324 mg PO NOW ONE Stop: 09/06/25 16:38 Last Admin: 09/06/25 16:47 Dose: 324 mg Documented By: DINO Nitroglycerin (Nitroglycerin Oint 1 Inch/Gm Oint...G.) 0.5 inch TOP NOW ONE Stop: 09/06/25 16:38 Last Admin: 09/06/25 16:47 Dose: 0.5 inch Documented By: DINO Vital Signs Vital signs: Vital Signs - 8 hr 09/06/25 16:34 09/06/25 16:37 09/06/25 16:37 Temperature Pulse Rate 75 72 Respiratory Rate Blood Pressure 193/89 H Pulse Oximetry 97 98 Oxygen Delivery Method 09/06/25 16:38 09/06/25 16:47 09/06/25 17:00 Temperature 97.9 F Pulse Rate 75 70 75 Respiratory Rate 18 Blood Pressure 193/89 H 193/89 H Pulse Oximetry 98 Oxygen Delivery Method Room Air 09/06/25 17:30 09/06/25 17:31 09/06/25 17:31 Temperature Pulse Rate 61 Respiratory Rate 15 13 Blood Pressure 151/65 H Pulse Oximetry 94 95 Oxygen Delivery Method 09/06/25 18:00 09/06/25 18:01 09/06/25 18:01 Temperature Pulse Rate 60 61 Respiratory Rate 18 21 Blood Pressure 140/62 Pulse Oximetry 95 94 Oxygen Delivery Method 09/06/25 18:30 09/06/25 18:30 09/06/25 19:00 Temperature Pulse Rate 56 L 54 L Respiratory Rate 14 18 Blood Pressure 143/64 H Pulse Oximetry 93 94 Oxygen Delivery Method 09/06/25 19:01 09/06/25 19:01 Temperature Pulse Rate 56 L Respiratory Rate 20 Blood Pressure 143/65 H Pulse Oximetry 93 Oxygen Delivery Method MDM - Chest Pain <José Romna DO - Last Filed: 09/06/25 18:18> Lab Data 09/06/25 16:46 09/06/25 16:46 Labs: Lab Results 09/06/25 09/06/25 Range/Units 16:46 18:46 WBC 6.8 (4.5-11.0) X10^3/uL RBC 4.58 (4.5-5.9) X10^6/uL Hgb 14.2 (13.5-17.5) g/dL Hct 42.0 (41-53) % MCV 91.7 (80-100) fL MCH 31.0 (26-34) PG MCHC 33.8 (30-36) % RDW 14.1 (11.6-14.8) % Plt Count 143 L (150-400) X10^3/uL Neut % (Auto) 75.5 H (50-75) % Lymph % (Auto) 9.2 L (25-40) % [place] % (Auto) 9.9 (3-14) % Eos % (Auto) 4.4 H (2-4) % Baso % (Auto) 1.0 (0-2) % Neut # (Auto) 5100 (9722-7465) /uL Lymph # (Auto) 600 L (0098-7668) /uL [place] # (Auto) 700 (0-900) /uL Eos # (Auto) 300 (0-450) /uL Baso # (Auto) 100 (0-100) /uL Sodium 140 (137-145) mmol/L Potassium 4.0 (3.4-5.1) mmol/L Chloride 102 (98-107) mmol/L Carbon Dioxide 32 (22-32) mmol/L BUN 22 H (9-20) mg/dL Creatinine 1.21 (0.66-1.25) mg/dL Estimated GFR 58 L (>60) mL/min BUN/Creatinine Ratio 18.2 (6-22) Glucose 104 H (70-99) mg/dL Calcium 9.2 (8.4-10.2) mg/dL Magnesium 2.0 (1.6-2.3) mg/dL Total Bilirubin 0.5 (0.2-1.3) mg/dL AST 33 (17-59) IU/L ALT 23 (<50) IU/L Alkaline Phosphatase 85 (38-126) U/L Troponin I < 0.012 0.015 (0.01-0.034) ng/mL NT-Pro-B Natriuret Pep 321 (<450) pg/mL Total Protein 7.3 (6.3-8.2) g/dL Albumin 4.4 (3.5-5.0) g/dL Globulin 2.9 (1.7-4.1) g/dL Albumin/Globulin Ratio 1.5 (1.0-2.8) Lipase 111 (23-300) U/L Urine Dip Bedside Urine Glucose Negative Bedside Urine Bilirubin - Negative Bedside Urine Ketone - Negative Urine Specific [place] 1.010 Bedside Urine Occult Blood - Negative Bedside Urine pH 7 Bedside Urine Protein - Negative Bedside Urine Urobilinogen - Negative Bedside Urine Nitrite - Negative Bedside Urine Leukocytes - Negative Esterase ECG Data Interpretation: Sinus Jonh IRBBB HR 56 WI 168 QRS [address]-t wave change MDM Narrative Medical decision making narrative: All labwork, vital signs, medical pathologist note, med list, previous ER visits, and all imaging studies reviewed. WBC 6.8 Hg 14.2 plt 143 Na 140 K 4.0 CL 102 C02 32 BUn 22 Cr 1.21 Trop<0.012 1st set BNP 321 lfts nml lipase 111. Heart score 7. Pt given asa and nitro here and is pain free. Pt s/o to at shift change pending final disposition. <Stefano Franco, DO - Last Filed: 09/06/25 19:47> Lab Data Labs: Lab Results 09/06/25 09/06/25 Range/Units 16:46 18:46 WBC 6.8 (4.5-11.0) X10^3/uL RBC 4.58 (4.5-5.9) X10^6/uL Hgb 14.2 (13.5-17.5) g/dL Hct 42.0 (41-53) % MCV 91.7 (80-100) fL MCH 31.0 (26-34) PG MCHC 33.8 (30-36) % RDW 14.1 (11.6-14.8) % Plt Count 143 L (150-400) X10^3/uL Neut % (Auto) 75.5 H (50-75) % Lymph % (Auto) 9.2 L (25-40) % [place] % (Auto) 9.9 (3-14) % Eos % (Auto) 4.4 H (2-4) % Baso % (Auto) 1.0 (0-2) % Neut # (Auto) 5100 (5102-0401) /uL Lymph # (Auto) 600 L (7281-3525) /uL [place] # (Auto) 700 (0-900) /uL Eos # (Auto) 300 (0-450) /uL Baso # (Auto) 100 (0-100) /uL Sodium 140 (137-145) mmol/L Potassium 4.0 (3.4-5.1) mmol/L Chloride 102 (98-107) mmol/L Carbon Dioxide 32 (22-32) mmol/L BUN 22 H (9-20) mg/dL Creatinine 1.21 (0.66-1.25) mg/dL Estimated GFR 58 L (>60) mL/min BUN/Creatinine Ratio 18.2 (6-22) Glucose 104 H (70-99) mg/dL Calcium 9.2 (8.4-10.2) mg/dL Magnesium 2.0 (1.6-2.3) mg/dL Total Bilirubin 0.5 (0.2-1.3) mg/dL AST 33 (17-59) IU/L ALT 23 (<50) IU/L Alkaline Phosphatase 85 (38-126) U/L Troponin I < 0.012 0.015 (0.01-0.034) ng/mL NT-Pro-B Natriuret Pep 321 (<450) pg/mL Total Protein 7.3 (6.3-8.2) g/dL Albumin 4.4 (3.5-5.0) g/dL Globulin 2.9 (1.7-4.1) g/dL Albumin/Globulin Ratio 1.5 (1.0-2.8) Lipase 111 (23-300) U/L Urine Dip Bedside Urine Glucose Negative Bedside Urine Bilirubin - Negative Bedside Urine Ketone - Negative Urine Specific [place] 1.010 Bedside Urine Occult Blood - Negative Bedside Urine pH 7 Bedside Urine Protein - Negative Bedside Urine Urobilinogen - Negative Bedside Urine Nitrite - Negative Bedside Urine Leukocytes - Negative Esterase MDM Narrative Medical decision making narrative: All labwork, vital signs, medical pathologist note, med list, previous ER visits, and all imaging studies reviewed. WBC 6.8 Hg 14.2 plt 143 Na 140 K 4.0 CL 102 C02 32 BUn 22 Cr 1.21 Trop<0.012 1st set BNP 321 lfts nml lipase 111. Heart score 7. Pt given asa and nitro here and is pain free. Pt s/o to at shift change pending final disposition. Dr. Franco: Patient was signed out to me Dr. Roman, patient presented with exertional chest pain now resolved, patient initial EKG nonischemic initial troponin negative, patient with a heart score of 7, patient was given aspirin and nitro with no active chest pain currently. Final disposition pending repeat troponin most likely admission given elevated heart score The patient's management plan was discussed Dr. Chen, who agrees to admit the patient to their service and assumes care of this patient at this time. Full admission orders will be placed by the primary team. Discharge Plan Departure Patient Disposition: Admitted as Observation Clinical Impression: Chest pain
[2025-09-06] MEDS: ASPIRIN 81 MG CHEW TAB 324 MG PO (16:47)
[2025-09-06] MEDS: NITROGLYCERIN OINT 1 INCH/GM OINT...G. 0.5 INCH TOP (16:47)
[2025-09-06 17:05] LABS: Add Manual Diff / Slide Review NO; Hematocrit 42.0 % (41-53); Hemoglobin 14.2 g/dL (13.5-17.5); Lymphocytes Absolute Auto 600 /uL (1100-4500); Mean Corpuscular HGB Conc 33.8 % (30-36); Mean Corpuscular Hemoglobin 31.0 PG (26-34); Mean Corpuscular Volume 91.7 fL (80-100); Platelet Count 143 X10^3/uL (150-400)
[2025-09-06 17:06] LABS: Alanine Aminotransferase 23 IU/L (<50); Albumin 4.4 g/dL (3.5-5.0); Albumin Globulin Ratio 1.5 (1.0-2.8); Alkaline Phosphatase 85 U/L (38-126); Blood Urea Nitrogen 22 mg/dL (9-20); Calcium 9.2 mg/dL (8.4-10.2); Carbon Dioxide 32 mmol/L (22-32); Chloride 102 mmol/L (98-107); Estimated Glomerular Filt Rate 58 mL/min (>60); Globulin 2.9 g/dL (1.7-4.1); Glucose 104 mg/dL (70-99); HEMOLYSIS < 15 (0-50); Lipase 111 U/L (23-300); Magnesium 2.0 mg/dL (1.6-2.3); Potassium 4.0 mmol/L (3.4-5.1); Sodium 140 mmol/L (137-145); Total Protein 7.3 g/dL (6.3-8.2)
[2025-09-06 17:18] LABS: NT-proBNP (BNP-Adult 18+) 321 pg/mL (<450); Troponin I < 0.012 ng/mL (0.01-0.034)
--- NOTE | 2025-09-06 18:46 | EKG_ITS ---
[place] [address] [place] [id number] Test Date: 2025-09-06 Pat Name: William Torres Department: [facility] Room: Gender: Male [employer]: DELGADO : 1940 Requested By: Order Number: [id number] Reading MD: Measurements Intervals [place] Rate: 52 P: 21 MA: 170 QRS: -25 QRSD: 98 T: -2 QT: 460 QTc: 427 Interpretive Statements Sinus bradycardia Incomplete right bundle branch block Minimal voltage criteria for LVH, may be normal variant ( R in aVL )
[2025-09-06 19:24] LABS: Troponin I 0.015 ng/mL (0.01-0.034)
[2025-09-07] VITALS (16 sets, daily range): BP systolic 114–193; BP diastolic 55–75; PULSE 45–82; RESP 9–20; TEMP 36.6; O2SAT 88–97; BMI 26.1
[2025-09-07 01:53] LABS: Troponin I 0.023 ng/mL (0.01-0.034)
--- NOTE | 2025-09-07 02:44 | PM.HP.1 ---
History of Present Illness History of Present Illness Date Patient Seen: 09/07/25 Time Patient Seen: 00:12 Chief complaint: Chest pain today, hx of hrt disease Narrative: 85-year-old male with past medical history of coronary disease status post triple bypass, prostate cancer status post prostatectomy, factor V Leyden mutation, GERD and nephrolithiasis presents with complaint of chest pain. Per the patient's report, the patient was walking with his on a 1.3 m walk when he started to have chest pain skilled nursing in. The patient scribes his chest pain as tight but also burning, left-sided, moderate to severe, improved with rest and nonradiating. The patient states that when he was sitting down to rest his chest pain resolved after a few minutes. The patient completed his walk and brought himself to the ER. The patient otherwise denies any recurrent chest pain since. The patient also denies any recent fever, chills, nausea, vomiting, diarrhea, shortness of breath or coughing. In the emergency room, the patient was hemodynamically stable. Labs were relatively benign and troponins were negative x 2. However due to patient's underlying risk factors ER physician requested admission to continue to trend troponin and obtain echo and possible stress test in the morning. [facility] Medical History Paroxysmal A-fib CKD (chronic kidney disease) Kyphosis Renal insufficiency Carotid artery stenosis AAA (abdominal aortic aneurysm) without rupture Low BUN Rosacea Bladder outlet obstruction BPH w urinary obs/LUTS Compression fx, lumbar spine Low back pain Myofascial pain Anxiety Thoracic back pain Spondylosis without myelopathy or radiculopathy, thoracolumbar region HTN (hypertension) Thoracic radiculopathy Compression fx, thoracic spine Constipation Acute lumbar back pain Acute bilateral thoracic back pain Actinic keratoses Low testosterone in male Chronic left shoulder pain Bilateral kidney stones Factor V Leiden mutation (Unknown) Erectile dysfunction (Unknown) GERD (gastroesophageal reflux disease) (Unknown) BPH (benign prostatic hyperplasia) (Unknown) Hyperlipemia (Unknown) Osteoporosis (Unknown) Hypogonadism (Unknown) Coronary artery disease (Unknown) Skin cancer (Unknown) Surgical History History of penile implant History of colonoscopy Status post insertion of iliac artery stent (~09/2015) History of kidney stones (1974) Hx of transurethral resection of prostate (~1966) Hx of coronary artery bypass graft (Unknown) Family History Father No problems noted. Mother No problems noted. Brother Coronary artery disease Social History household members: spouse Smoking Status: Never smoker alcohol intake: current Meds Home Medications and Allergies Home Medications ?Medication ?Instructions ?Recorded ?Confirmed ?Type aspirin 81 mg tablet,delayed 81 mg PO QDAY ##0 12/08/16 09/06/25 History release esomeprazole magnesium 20 mg 10 mg PO DAILY 01/13/19 09/06/25 History capsule,delayed release (Nexium) ezetimibe 10 mg tablet 5 mg PO DAILY 09/11/22 09/06/25 History rosuvastatin 40 mg tablet (Crestor) 40 mg PO QDAY 09/11/22 09/06/25 History Disabled Parking Placard #1 ea 03/28/23 03/27/25 Rx forteo needles #90 ea 04/27/23 03/27/25 Rx potassium chloride 20 mEq 40 meq (2 x 20 mEq) PO DAILY #60 09/26/23 09/06/25 Rx tablet,extended release tabs losartan 50 mg tablet 50 mg PO DAILY 11/05/23 09/06/25 History amlodipine 5 mg tablet 10 mg PO DAILY 05/16/24 09/06/25 History chlorthalidone 25 mg tablet 12.5 mg PO QAM 06/17/24 09/06/25 History phenazopyridine 200 mg tablet 200 mg PO TID PRN pain #9 tabs 06/17/24 09/06/25 Rx ascorbate calcium (vitamin C) 500 500 mg PO QDAY 06/26/24 09/06/25 History mg tablet tamsulosin 0.4 mg capsule 0.4 mg PO BEDTIME 03/27/25 09/06/25 History tadalafil 5 mg tablet (Cialis) 5 mg PO QDAY #90 tabs 04/09/25 09/06/25 Rx pen needle, diabetic 32 gauge x #100 ea 04/14/25 Rx /32 (Sure Comfort Pen Needle) teriparatide 20 mcg/dose (560 20 mcg (0.08 mL) SUBCUT DAILY #2.4 07/10/25 09/06/25 Rx mcg/2.24 mL) subcutaneous pen mL injector magnesium oxide 400 mg (241.3 mg 400 mg PO ONCE PM #90 tabs 08/05/25 09/06/25 Rx magnesium) tablet Allergies Allergy/AdvReac Type Severity Reaction Status Date / Time cat dander (CAT DANDER) Allergy Unknown Verified 09/06/25 16:38 clopidogrel (From Plavix) Allergy hives Verified 09/06/25 16:38 HAYFEVER Allergy Mild Uncoded 09/06/25 16:38 Exam Vital Signs (past 8 hours): - 09/06/25 19:00 09/06/25 19:01 09/06/25 19:01 Temperature Pulse Rate 54 L 56 L Respiratory Rate 18 20 Blood Pressure 143/65 H Pulse Oximetry 94 93 09/06/25 19:30 09/06/25 19:31 09/06/25 19:31 Temperature Pulse Rate 55 L 55 L Respiratory Rate 18 17 Blood Pressure 155/67 H Pulse Oximetry 94 94 09/06/25 20:00 09/06/25 20:01 09/06/25 20:01 Temperature Pulse Rate 65 67 Respiratory Rate 24 20 Blood Pressure 129/68 Pulse Oximetry 93 93 09/06/25 20:30 09/06/25 20:32 09/06/25 20:32 Temperature Pulse Rate 85 80 Respiratory Rate Blood Pressure 155/70 H Pulse Oximetry 95 09/06/25 21:00 09/06/25 21:01 09/06/25 21:01 Temperature Pulse Rate 66 67 Respiratory Rate 20 Blood Pressure 140/93 H Pulse Oximetry 94 94 09/06/25 21:30 09/06/25 21:30 09/06/25 22:00 Temperature Pulse Rate 59 L 59 L Respiratory Rate 33 H 16 Blood Pressure 152/110 H Pulse Oximetry 95 94 09/06/25 22:00 09/06/25 22:30 09/06/25 23:00 Temperature Pulse Rate 80 Respiratory Rate 33 H Blood Pressure 166/74 H 150/70 H Pulse Oximetry 93 09/06/25 23:00 09/07/25 00:00 09/07/25 01:02 Temperature Pulse Rate 70 82 66 Respiratory Rate 20 Blood Pressure Pulse Oximetry 94 09/07/25 01:05 09/07/25 01:05 09/07/25 01:25 Temperature 97.9 F Pulse Rate 62 70 Respiratory Rate 18 20 Blood Pressure 156/70 H 150/70 H Pulse Oximetry 96 94 09/07/25 01:30 Temperature Pulse Rate Respiratory Rate Blood Pressure Pulse Oximetry 92 Oxygen Delivery Method Room Air Narrative Exam Narrative: Physical Exam: GENERAL: The patient is not in any acute distressed. Awake and alert. HEENT: Nonicteric sclerae, PERRLA, EOMI. Oropharynx clear. Moist mucous membranes. Conjunctivae appear well perfused. HEART: Regular rate and rhythm without murmurs. No lower extremities edema. LUNGS: Clear to auscultation bilaterally. No wheezing, crackles or rhonchi ABDOMEN: Soft, positive bowel sounds, nontender. SKIN: No rash, no excessive bruising, petechiae, or purpura. NEUROLOGIC: AxO x 3. Cranial nerves II-XII intact without motor/sensory deficit. Objective Labs 09/06/25 16:46 09/06/25 16:46 Labs: Laboratory Results - last 24 hr 09/06/25 09/06/25 09/07/25 16:46 18:46 01:25 WBC 6.8 RBC 4.58 Hgb 14.2 Hct 42.0 MCV 91.7 MCH 31.0 MCHC 33.8 RDW 14.1 Plt Count 143 L Neut % (Auto) 75.5 H Lymph % (Auto) 9.2 L [place] % (Auto) 9.9 Eos % (Auto) 4.4 H Baso % (Auto) 1.0 Neut # (Auto) 5100 Lymph # (Auto) 600 L [place] # (Auto) 700 Eos # (Auto) 300 Baso # (Auto) 100 Sodium 140 Potassium 4.0 Chloride 102 Carbon Dioxide 32 BUN 22 H Creatinine 1.21 Estimated GFR 58 L BUN/Creatinine Ratio 18.2 Glucose 104 H Calcium 9.2 Magnesium 2.0 Total Bilirubin 0.5 AST 33 ALT 23 Alkaline Phosphatase 85 Troponin I < 0.012 0.015 0.023 NT-Pro-B Natriuret Pep 321 Total Protein 7.3 Albumin 4.4 Globulin 2.9 Albumin/Globulin Ratio 1.5 Lipase 111 Assessment & Plan Assessment & Plan narrative: Chest pain. Admit the patient to medical telemetry under observation. Of note the patient does have a significant history of triple coronary artery bypass. Tropes are negative x 2 and EKG shows no sign of acute ischemia. Patient is chest pain-free. Continue to trend troponin obtain echocardiogram in the morning. Consider stress test if echo is negative. Resume home cardiac medication include aspirin and statin. Hypertension. Monitor blood pressure and resume home medication accordingly. Hyperlipidemia. Resume home statin. BPH. Resume home Flomax. DVT prophylaxis SCDs due to observational status. CODE STATUS full code. Disposition likely home in 1 to 2 days. - As the provider of this telehealth evaluation, requested by the patient's evaluating physician, I attest that I introduced myself to the patient, provided my credentials and determined that telemedicine via a real-time, 2 way interactive audio and video platform is an appropriate and effective means of providing this service. - I reviewed the patient's chart and had a discussion with the member of the patient's treatment team. - The patient and I mutually agreed with continuation of this evaluation via telemedicine. The patient consented for the telemedicine evaluation. - This virtual encounter was taken place from [place] by Dr. Chacho Chen. The patient was evaluated at [facility]. The encounter was approximately 35 minutes. The nurse was present during the entire time of the encounter and was able to assists with exam/stethoscope. Time-Based Coding :: [TOTAL MINUTES] spent with patient and on the chart (including review of chart, obtaining history, exam, reviewing outside data, placing orders, documenting exam and treatment plan, and counseling patient) on [DATE].
--- NOTE | 2025-09-07 05:15 | PC.NURSE ---
pt ambulatory to the bathroom without assistance, pt without any c/o pain or discomfort at this time
[2025-09-07 05:59] LABS: Add Manual Diff / Slide Review NO; Hematocrit 37.5 % (41-53); Hemoglobin 12.9 g/dL (13.5-17.5); Lymphocytes Absolute Auto 600 /uL (1100-4500); Mean Corpuscular HGB Conc 34.3 % (30-36); Mean Corpuscular Hemoglobin 31.2 PG (26-34); Mean Corpuscular Volume 91.0 fL (80-100); Platelet Count 130 X10^3/uL (150-400)
[2025-09-07 06:06] LABS: Blood Urea Nitrogen 24 mg/dL (9-20); Calcium 8.5 mg/dL (8.4-10.2); Carbon Dioxide 28 mmol/L (22-32); Chloride 106 mmol/L (98-107); Estimated Glomerular Filt Rate > 60 mL/min (>60); Glucose 93 mg/dL (70-99); HEMOLYSIS 29 (0-50); Potassium 3.9 mmol/L (3.4-5.1); Sodium 139 mmol/L (137-145)
--- NOTE | 2025-09-07 06:28 | PC.NURSE ---
Pt Chest pain resolved prior to this nurse taking over care.
--- NOTE | 2025-09-07 07:40 | DI.NM.S_ITS ---
PROCEDURE: NM CALEB PERF SPECT REST & STR Rest and exercise myocardial perfusion SPECT with gated imaging and ejection fraction RADIOPHARMACEUTICAL: 11.1 mCi Tc-99m sestamibi IV at rest and 27.5 mCi Tc-99m sestamibi IV at peak exercise. A [id number] was performed. INDICATIONS: Angina TECHNIQUE: Radiopharmaceutical was injected at peak stress test, and also at rest. SPECT images were obtained. SPECT myocardial perfusion images were displayed in short axis, horizontal long axis, and vertical long axis views. Gated images were reviewed using [employer] software. COMPARISON: None. CARDIAC STRESS: A standard Param treadmill exercise tolerance test was performed by the patient under the supervision of an attending staff. The patient exercised for 10 minutes and 23 seconds; 11.7 METS; functional aerobic impairment (EJ) is -134%. Hemodynamic data: There is normal blood pressure and heart rate response to exercise stress. Patient achieved 93% of maximum predicted heart rate at peak exercise. Peak blood pressure 200/90. Symptoms: Patient denied chest pain during exercise. EKG: No diagnostic EKG changes of ischemia; no ectopy. FINDINGS: Raw data: There is good myocardial labeling by radiotracer. No significant motion artifacts. There is evidence of diaphragmatic attenuation. Left ventricle function: Gated images demonstrate normal left ventricle wall thickening. No segmental wall motion abnormality. No transient ischemic dilation; TID is 1.13 (normal less than 1.3). The left ventricle resting end-diastolic volume is 136 mL. Left ventricle stress ejection fraction is 68%; normal values are above 45%. Myocardial perfusion: There is a small sized, very mild intensity basal inferolateral wall defect that resolves on prone imaging. No reversible perfusion defects. IMPRESSION: Low risk study. No evidence of exercise-induced ischemia on ECG or SPECT imaging. Dilated left ventricle based on calculated LVEDV with normal function. Normal hemodynamic response. Supranormal exercise capacity. Dictated by: Lenka Mora D.O. on 09/07/2025 at 13:13 Approved by: Lenka Mora D.O. on 09/07/2025 at 13:20
--- NOTE | 2025-09-07 12:00 | PC.NURSE ---
Patient was brought up from ER (boarding overnight) to room 229 at 824am this morning. Patient oriented to room and call light. VSS, SB 50's on telemetry. Patient denies chest pain or other discomfort. Call light placed within reach. Patient taken down for stress test resting photos, brought back up and had bedside echo performed and then taken away for stress portion of his stress test. Patient has not had his scheduled morning medications yet as ordered (patient has been unavailable due to scheduled test).
--- NOTE | 2025-09-07 13:00 | P.DS_ITS ---
History of Present Illness History of Present Illness Date Patient Seen: 09/07/25 Chief complaint: Chest pain today, hx of hrt disease Narrative: Chief complaint: Dyspnea with walking distance and history of coronary disease status post bypass History of present illness: 85-year-old male with past medical history of coronary disease status post triple bypass, prostate cancer status post prostatectomy, factor V Leyden mutation, GERD and nephrolithiasis presents with complaint of chest pain. Per the patient's report, the patient was walking with his on a 1.3 m walk when he started to have chest pain chcf in. The patient scribes his chest pain as tight but also burning, left-sided, moderate to severe, improved with rest and nonradiating. The patient states that when he was sitting down to rest his chest pain resolved after a few minutes. The patient completed his walk and brought himself to the ER. The patient otherwise denies any recurrent chest pain since. The patient also denies any recent fever, chills, nausea, vomiting, diarrhea, shortness of breath or coughing. In the emergency room, the patient was hemodynamically stable. Labs were relatively benign and troponins were negative x 2. However due to patient's underlying risk factors ER physician requested admission to continue to trend troponin and obtain echo and possible stress test in the morning. Hospital course: Troponins were negative Stress nuclear medicine was negative for reversible ischemia Patient discharged home Follow up with Cardiology Dr. Trujillo 35 minutes were involved in evaluation of this patient doing [id number] evaluation physical examination review of chart discussion with Cardiology Discharge Providers Provider Date of admission: 09/06/25 19:47 Discharge Date: 09/07/25 Primary care physician: Mani Adamson DO Discharge provider: Nicholas Padilla MD Exam Vital Signs (past 8 hours): - 09/07/25 06:38 09/07/25 07:27 09/07/25 07:30 Pulse Rate 52 L 73 76 Respiratory Rate 20 Blood Pressure Pulse Oximetry Oxygen Delivery Method 09/07/25 08:00 09/07/25 08:07 09/07/25 08:07 Pulse Rate 53 L 51 L Respiratory Rate 19 19 Blood Pressure 148/67 H Pulse Oximetry 96 Oxygen Delivery Method Room Air 09/07/25 08:39 Pulse Rate 62 Respiratory Rate 16 Blood Pressure 114/55 L Pulse Oximetry 97 Oxygen Delivery Method Oxygen Delivery Method Room Air Objective Labs 09/07/25 05:50 09/07/25 05:50 Labs: Laboratory Results - last 24 hr 09/06/25 09/06/25 09/07/25 16:46 18:46 01:25 WBC 6.8 RBC 4.58 Hgb 14.2 Hct 42.0 MCV 91.7 MCH 31.0 MCHC 33.8 RDW 14.1 Plt Count 143 L Neut % (Auto) 75.5 H Lymph % (Auto) 9.2 L [place] % (Auto) 9.9 Eos % (Auto) 4.4 H Baso % (Auto) 1.0 Neut # (Auto) 5100 Lymph # (Auto) 600 L [place] # (Auto) 700 Eos # (Auto) 300 Baso # (Auto) 100 Sodium 140 Potassium 4.0 Chloride 102 Carbon Dioxide 32 BUN 22 H Creatinine 1.21 Estimated GFR 58 L BUN/Creatinine Ratio 18.2 Glucose 104 H Calcium 9.2 Magnesium 2.0 Total Bilirubin 0.5 AST 33 ALT 23 Alkaline Phosphatase 85 Troponin I < 0.012 0.015 0.023 NT-Pro-B Natriuret Pep 321 Total Protein 7.3 Albumin 4.4 Globulin 2.9 Albumin/Globulin Ratio 1.5 Lipase 111 09/07/25 05:50 WBC 6.6 RBC 4.12 L Hgb 12.9 L Hct 37.5 L MCV 91.0 MCH 31.2 MCHC 34.3 RDW 14.2 Plt Count 130 L Neut % (Auto) 76.0 H Lymph % (Auto) 8.7 L [place] % (Auto) 9.0 Eos % (Auto) 5.4 H Baso % (Auto) 0.9 Neut # (Auto) 5000 Lymph # (Auto) 600 L [place] # (Auto) 600 Eos # (Auto) 400 Baso # (Auto) 100 Sodium 139 Potassium 3.9 Chloride 106 Carbon Dioxide 28 BUN 24 H Creatinine 1.01 Estimated GFR > 60 BUN/Creatinine Ratio 23.8 H Glucose 93 Calcium 8.5 Magnesium Total Bilirubin AST ALT Alkaline Phosphatase Troponin I NT-Pro-B Natriuret Pep Total Protein Albumin Globulin Albumin/Globulin Ratio Lipase [facility] Medical History Paroxysmal A-fib CKD (chronic kidney disease) Kyphosis Renal insufficiency Carotid artery stenosis AAA (abdominal aortic aneurysm) without rupture Low BUN Rosacea Bladder outlet obstruction BPH w urinary obs/LUTS Compression fx, lumbar spine Low back pain Myofascial pain Anxiety Thoracic back pain Spondylosis without myelopathy or radiculopathy, thoracolumbar region HTN (hypertension) Thoracic radiculopathy Compression fx, thoracic spine Constipation Acute lumbar back pain Acute bilateral thoracic back pain Actinic keratoses Low testosterone in male Chronic left shoulder pain Bilateral kidney stones Factor V Leiden mutation (Unknown) Erectile dysfunction (Unknown) GERD (gastroesophageal reflux disease) (Unknown) BPH (benign prostatic hyperplasia) (Unknown) Hyperlipemia (Unknown) Osteoporosis (Unknown) Hypogonadism (Unknown) Coronary artery disease (Unknown) Skin cancer (Unknown) Surgical History History of penile implant History of colonoscopy Status post insertion of iliac artery stent (~09/2015) History of kidney stones (1974) Hx of transurethral resection of prostate (~1966) Hx of coronary artery bypass graft (Unknown) Family History Father No problems noted. Mother No problems noted. Brother Coronary artery disease Social History household members: spouse Smoking Status: Never smoker alcohol intake: current Discharge Plan Discharge Plan Patient Disposition: Home Discharge orders & Medications Prescriptions: Continued esomeprazole magnesium [Nexium] 20 mg capsule,delayed release(DR/EC) 10 mg PO DAILY aspirin 81 MG tablet,delayed release (DR/EC) 81 mg PO QDAY Qty: 0 (DME) forteo needles See Rx Instructions .Route .MEDSUPPLY Qty: 90 3RF Rx Instructions: As directed potassium chloride 20 mEq tablet extended release 40 meq PO DAILY Qty: 60 0RF tadalafil [Cialis] 5 mg tablet 5 mg PO QDAY Qty: 90 3RF (DME) pen needle, diabetic [Sure Comfort Pen Needle] 32 gauge x 5/32 needle See Rx Instructions .ROUTE .COMPLEX Qty: 100 2RF Dose Instruction: USE 1 PEN TO INJECT FORTEO Rx Instructions: USE 1 PEN TO INJECT FORTEO teriparatide 20 mcg/dose (560mcg/2.24mL) pen injector 20 mcg SUBCUT DAILY Qty: 2.4 11RF magnesium oxide 400 mg (241.3 mg magnesium) tablet 400 mg PO ONCE PM Qty: 90 1RF rosuvastatin [Crestor] 40 mg tablet 40 mg PO QDAY ezetimibe 10 mg tablet 5 mg PO DAILY (DME) Disabled Parking Placard See Rx Instructions .Route .MEDSUPPLY Qty: 1 0RF Rx Instructions: Valid for 5 years tamsulosin 0.4 mg capsule 0.4 mg PO BEDTIME chlorthalidone 25 mg tablet 12.5 mg PO QAM phenazopyridine 200 mg tablet 200 mg PO TID PRN (Reason: pain) Qty: 9 0RF losartan 50 mg tablet 50 mg PO DAILY amlodipine 5 mg tablet 10 mg PO DAILY ascorbate calcium (vitamin C) 500 mg tablet 500 mg PO QDAY Follow up/Referrals: Mani Adamson DO [Primary Care Provider, Family Practice] Visit Report/Discharge Packet Stand Alone Forms: Patient Portal/API, Stroke Signs & Symptoms Discharge Data Primary Care Provider: Mani Adamson Attending Provider: Chacho Chen Admkay Date/Time: 09/06/25 19:47
--- NOTE | 2025-09-07 14:46 | PC.NURSE ---
Patient remained without complaints this shift, pleasant and cheerful. Ate lunch, and discharged to home afterwards. Patient declined taking his medications today from hospital, states he will take all his own normal medications as soon as he gets home. IV was removed intact by HOUSEHOLD WORKER. Patient escorted out to discharge to home with his .
--- NOTE | 2025-09-07 15:10 | CM.DANOTE ---
DCP Assessment Note pt is a 85yo M admitted with chest pain. getting stress test today. per hospitalist in afternoon, cleared to dc home. WARPER CREELER reviewed EMR per RN, ambulating indep, likely no needs. WARPER CREELER met with pt and spouse in room. pt lives indep with spouse in [place]. no DME. drives. denies any DCP needs at this time. very pleasant and chatty. P: dc home today with spouse support no DCP needs. will continue to follow as needed for DCP coordination NOAH Coyne Discharge Planning/Care Management CM Discharge Assessment Start: 09/07/25 08:23 Freq: Status: Discharge Protocol: Document 09/07/25 15:09 (Rec: 09/07/25 15:10 [id number]) Discharge Planning Assessment Assigned Discharge NOAH Singletary Accident Examiner Provider Mani Adamson Insurance BCBS,Medicare DPOA/Assigned Genie, spouse Designee Name Contact Information [phone] Advance Directives? Yes Advance Directives Yes on File History Provided By Patient Prior Living House Arrangements Household Members spouse Type of Drives own vehicle transporation used prior to admit Independent with ADL Yes 's Is patient alert and Yes oriented? Discharge Plan Home Referrals Initiated None needed Review Status In Process Please Provide Date 09/07/25 Initial DC Assessment Was Performed Next Review Type Continued Stay Review
== END 2025-09-07 14:45 | disposition home or self-care (01) ==
LOC: ED 19:41 → AC 19:48 → ICU 09-07 06:33
PROVIDERS: Family Medicine; Admitting Provider Internal Medicine; Emergency Provider Student in an Organized Health Care Education/Training Program; PCP Family Medicine; Referring Provider Internal Medicine; Visit Provider Internal Medicine
DX: R07.9 Chest pain, unspecified (principal); I25.10 Atherosclerotic heart disease of native coronary artery without angina pectoris; Z85.46 Personal history of malignant neoplasm of prostate; D68.51 Activated protein C resistance; Z95.1 Presence of aortocoronary bypass graft; K21.9 Gastro-esophageal reflux disease without esophagitis
CPT/HCPCS: 36415; 71045; 78452; 80048; 80053; 81003; 83690; 83735; 83880; 84484; 85025; 93005; 93017; 93306; 99284; G0378; A9502; Q9957

== ENCOUNTER → 2025-09-15 10:52 | Outpatient (CLI) | payer MEDICARE, BC, SELFPAY ==
[2025-09-07 08:25] VITALS: BMI 26.1
[2025-09-15 11:54] LABS: Hematocrit 42.5 % (41-53); Hemoglobin 14.5 g/dL (13.5-17.5)
[2025-09-15 12:15] LABS: Blood Urea Nitrogen 23 mg/dL (9-20); Calcium 9.1 mg/dL (8.4-10.2); Carbon Dioxide 27 mmol/L (22-32); Chloride 103 mmol/L (98-107); Estimated Glomerular Filt Rate > 60 mL/min (>60); Glucose 94 mg/dL (70-99); HEMOLYSIS < 15 (0-50); Potassium 4.2 mmol/L (3.4-5.1); Sodium 139 mmol/L (137-145)
[2025-09-16 17:41] LABS: Protein (Total) Urine Random 12 mg/dL (0-12); Protein Creatinine Ratio Urine 0.19 GRAM/24H
== END ==
PROVIDERS: PCP Family Medicine; Referring Provider Student in an Organized Health Care Education/Training Program; Visit Provider Student in an Organized Health Care Education/Training Program
DX: D70.9 Neutropenia, unspecified (principal); D63.1 Anemia in chronic kidney disease; N05.9 Unspecified nephritic syndrome with unspecified morphologic changes; N25.81 Secondary hyperparathyroidism of renal origin; R80.9 Proteinuria, unspecified
CPT/HCPCS: 36415; 80048; 82570; 83970; 84156; 85014; 85018